=== PATIENT | male | born 1975 | race Caucasian/White ===

== ENCOUNTER 2017-01-10 23:28 | Inpatient (IN) ==
[2017-01-11 01:14] VITALS: BP 144/93
--- NOTE | 2017-01-11 01:34 | Internal Med History&Physical ---
Date of Encounter: 01/11/17 Time of Encounter: 12:50 Internal Medicine - H&P: HPI Chief complaint: Agitation after alcohol and Ambien use x 1 day Admitted From: Intrahospital Transfer Plans for Post Hospital Care: Home History of present illness: Mr. St is a 41 year old male with medical history significant for hypertension, prior ED encounter with alcohol and Ambien use was transferred from [facility] where he was initially managed for agitation after ingestion alcohol and 1 tablet of Ambien. His had called EMS as he had become combative at home. This behavior is not unusual when he drinks. She reports he had drank 2 "tall boys" and down 2 x 10mg pills of Ambien. He was pink-slipped at [facility]. He was transferred to [facility] for unclear reasons. He was restrained in transit. He denies chest pain, SOB, dizziness, palpitation. He denied he fell, he denied unsteady gait. He denies cramps, no diarrhea or vomiting. no new-onset urinary symptoms, no bleeding any orifice, no blurry vision, he denies uicidal or homicidal ideations. He took Ambien because he has insomnia. He is FULL CODE as per discussion. He nominates , Frances St as his NOK/POA ([phone]). ROS: A 10-point ROS was performed, positives and relevant negatives are detailed , system-symptoms not mentioned is assumed negative unless otherwise stated. Vital Signs Temperature 98.5 F 01/10/17 19:35 Pulse Rate 120 01/10/17 19:35 Respiratory Rate 14 01/10/17 19:35 Blood Pressure 161/94 01/10/17 19:35 O2 Sat by Pulse Oximetry 98 01/10/17 19:35 Temperature 98.5 F 01/10/17 19:35 Pulse Rate 104 01/10/17 22:55 Respiratory Rate 14 01/10/17 22:55 Blood Pressure 146/80 01/10/17 22:55 O2 Sat by Pulse Oximetry 96 01/10/17 22:55 O/E: Not in distress, calm. HEENT: Not pale, anicteric, afebrile, acyanotic Chest: CTAB Heart: RRR, HS1.2 no murmur Abdomen: soft, non-tender, no masses. 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 Thought process is logical and goal-directed. Extremities: No pedal edema, normal pedal edema, no calf tenderness. Lab Results 01/10/17 01/10/17 01/10/17 Range/Units 20:00 20:00 20:10 WBC 7.3 (4.3-11.1) K/mcL RBC 5.14 (4.19-5.50) M/mcL Hgb 16.1 (12.9-16.9) g/dL Hct 43.1 (37.5-50.1) % MCV 83.9 (83.0-100.0) fL MCH 31.3 (28.0-33.3) pg MCHC 37.4 H (31.6-35.5) g/dL RDW 11.9 (11.5-14.5) % Plt Count 248 (140-400) K/mcL MPV 9.6 (9.4-12.4) fL Immature Gran % 0.3 (0-4) % Seg Neutrophils % 60.1 % Lymphocytes % 29.9 % Monocytes % 8.5 % Eosinophils % 0.8 % Basophils % 0.4 % Neutrophils # 4.4 (1.6-8.9) K/mcL Lymphocytes # 2.2 (0.6-4.6) K/mcL Monocytes # 0.6 (0.0-1.3) K/mcL Eosinophils # 0.1 (0.0-0.6) K/mcL Basophils # 0.0 (0.0-0.2) K/mcL Sodium (136-145) mEq/L Potassium (3.5-4.5) mEq/L Chloride (98-109) mEq/L Carbon Dioxide (19-29) mEq/L BUN (8-26) mg/dL Creatinine (0.72-1.25) mg/dL Est GFR ( Amer) (> 60) Est GFR (Non-Af Amer) (> 60) BUN/Creatinine Ratio (6-26) Glucose (70-99) mg/dL Calculated Osmolality (280-300) Calcium (8.6-10.8) mg/dL Total Bilirubin (0.2-1.2) mg/dL Direct Bilirubin (0.0-0.5) mg/dL Indirect Bilirubin (0.0-1.2) mg/dL AST (5-34) Units/L ALT (0-55) Units/L Alkaline Phosphatase (38-126) Units/L Troponin I (0-0.03) ng/mL Serum Total Protein (6.0-8.3) g/dL Albumin (3.5-5.0) g/dL Globulin (2.4-3.5) g/dL Albumin/Globulin Ratio (1.1-2.2) Urine Color Yellow (Yellow) Urine Clarity Clear (Clear) Urine pH 7.0 (5.0-8.0) pH Units Ur Specific [place] 1.015 (1.010-1.025) Urine Protein 30 H (Neg-Trace) mg/dL Urine Glucose (UA) 100 H (Normal) mg/dL Urine Ketones Negative (Negative) mg/dL Urine Blood Trace-intact H (Negative) Urine Nitrite Negative (Negative) Urine Bilirubin Negative (Negative) Urine Urobilinogen Normal (Normal) mg/dL Ur Leukocyte Esterase Negative (Negative) Urine Microscopic RBC 0-3 (0-3) per hpf Urine Microscopic WBC 0-3 (0-3) per hpf Ur Squamous Epith Cells Few (None-Few) per lpf Urine Bacteria Few (None-Few) per hpf Hyaline Casts Few (None-Few) per lpf Salicylates (15-30) mg/dL Urine Opiates Screen Negative (Vgnzid=123) ng/mL Ur Oxycodone Screen Negative (Cutoff= 100) ng/mL Acetaminophen (10-30) mcg/mL Ur Barbiturates Screen Negative (Jwthjx=073) ng/mL Ur Phencyclidine Scrn Negative (Cutoff=25) ng/mL Ur Amphetamines Screen Negative (Dmtmbx=4887) ng/mL U Benzodiazepines Scrn Negative (Qclxwe=843) ng/mL Urine Cocaine Screen Negative (Cutoff= 300) ng/mL U Marijuana (THC) Screen Negative (Cutoff = 50) ng/mL Ethyl Alcohol (0-10) mg/dL 01/10/17 01/10/17 Range/Units 20:10 20:11 WBC (4.3-11.1) K/mcL RBC (4.19-5.50) M/mcL Hgb (12.9-16.9) g/dL Hct (37.5-50.1) % MCV (83.0-100.0) fL MCH (28.0-33.3) pg MCHC (31.6-35.5) g/dL RDW (11.5-14.5) % Plt Count (140-400) K/mcL MPV (9.4-12.4) fL Immature Gran % (0-4) % Seg Neutrophils % % Lymphocytes % % Monocytes % % Eosinophils % % Basophils % % Neutrophils # (1.6-8.9) K/mcL Lymphocytes # (0.6-4.6) K/mcL Monocytes # (0.0-1.3) K/mcL Eosinophils # (0.0-0.6) K/mcL Basophils # (0.0-0.2) K/mcL Sodium 138 (136-145) mEq/L Potassium 2.4 L* (3.5-4.5) mEq/L Chloride 98 (98-109) mEq/L Carbon Dioxide 25 (19-29) mEq/L BUN 13 (8-26) mg/dL Creatinine 1.31 H (0.72-1.25) mg/dL Est GFR ( Amer) > 60 (> 60) Est GFR (Non-Af Amer) > 60 (> 60) BUN/Creatinine Ratio 10 (6-26) Glucose 107 H (70-99) mg/dL Calculated Osmolality 287 (280-300) Calcium 10.7 (8.6-10.8) mg/dL Total Bilirubin 0.6 (0.2-1.2) mg/dL Direct Bilirubin 0.2 (0.0-0.5) mg/dL Indirect Bilirubin 0.4 (0.0-1.2) mg/dL AST 20 (5-34) Units/L ALT 32 (0-55) Units/L Alkaline Phosphatase 78 (38-126) Units/L Troponin I 0.00 (0-0.03) ng/mL Serum Total Protein 7.7 (6.0-8.3) g/dL Albumin 4.4 (3.5-5.0) g/dL Globulin 3.3 (2.4-3.5) g/dL Albumin/Globulin Ratio 1.3 (1.1-2.2) Urine Color (Yellow) Urine Clarity (Clear) Urine pH (5.0-8.0) pH Units Ur Specific [place] (1.010-1.025) Urine Protein (Neg-Trace) mg/dL Urine Glucose (UA) (Normal) mg/dL Urine Ketones (Negative) mg/dL Urine Blood (Negative) Urine Nitrite (Negative) Urine Bilirubin (Negative) Urine Urobilinogen (Normal) mg/dL Ur Leukocyte Esterase (Negative) Urine Microscopic RBC (0-3) per hpf Urine Microscopic WBC (0-3) per hpf Ur Squamous Epith Cells (None-Few) per lpf Urine Bacteria (None-Few) per hpf Hyaline Casts (None-Few) per lpf Salicylates < 1.0 L (15-30) mg/dL Urine Opiates Screen (Pgjirw=518) ng/mL Ur Oxycodone Screen (Cutoff= 100) ng/mL Acetaminophen < 1.0 L (10-30) mcg/mL Ur Barbiturates Screen (Jznxrx=560) ng/mL Ur Phencyclidine Scrn (Cutoff=25) ng/mL Ur Amphetamines Screen (Sxealu=5069) ng/mL U Benzodiazepines Scrn (Rxchqu=323) ng/mL Urine Cocaine Screen (Cutoff= 300) ng/mL U Marijuana (THC) Screen (Cutoff = 50) ng/mL Ethyl Alcohol 139 H (0-10) mg/dL EKG: sinus tachycardia. IMP Alcohol intoxication Adverse effect of Ambien Agitation: Resolved Severe hypokalemia, likely related to alcoholism Chronic morbidities HTN Depression. PLAN admit to observation, telemetry IVF N/S Potassium CHLORIDE 60 mEQ q1h x 2 doses Check serum magnesium Accucheck q6h X 24 hours. I discussed my assessment with the patient, he verbalized understanding and is agreeable to admission. He called his who informed him abdelrahman was on her way to the hospital. Past Med Surg Social Fam HX - Past Medical History Medical history: hypertension Psychiatric history: depression - Social History Smoking Status: Current every day smoker Smokeless Tobacco Status: Yes Alcohol use: occasionally Drug use: none - Family History Maternal Grandmother Hx Family Cardiac Disorders: Yes (HTN) Internal Medicine - H&P: Meds Allergies No Known Allergies Allergy (Verified 11/12/16 23:54) All Systems PM: A 10-system review of systems was performed and is negative for pertinent findings except as documented above in the HPI. - Constitutional Vitals: Temp Pulse Resp BP Pulse Ox 98.0 F 111 16 144/93 98 01/11/17 01:13 01/11/17 01:13 01/11/17 01:13 01/11/17 01:13 01/11/17 01:13
[2017-01-11] MEDS ORDERED: Naloxone 0.4 MG/ML INJ IVP PRN (01:46)
[2017-01-11] MEDS ORDERED: Ondansetron 4 MG/2 ML VIAL IVP PRN (01:46)
[2017-01-11] MEDS ORDERED: 0.9 % Sodium Chloride 1,000 ML IVC SCH (02:00)
--- NOTE | 2017-01-11 03:57 | Discharge Summary ---
Date of Encounter: 01/11/17 Time of Encounter: 03:40 - Discharge Diagnosis (1) Alcohol abuse Priority: Primary Status: Acute (2) Intoxication by drug Priority: Primary Status: Acute Qualifiers: Complication of substance-induced condition: uncomplicated Qualified Code(s ): F19.920 - Other psychoactive substance use, unspecified with intoxication, uncomplicated - Discharge Medications Allergies/Adverse Reactions: Allergies No Known Allergies Allergy (Verified 11/12/16 23:54) Date of admission: 01/11/17 00:52 Primary care physician: PCP NO Consults: 01/11/17 01:46 Consult to Risk Control Manager [CONS] Routine Reason for SW Consult: Patient admitted from home with and kids after alcohol intoxication/suspected overdose. Denies suicidal ideation at this time, but is responsible for others. Unemployed at this time, may have financial obligations to fulfill. Patient is poor historian; does not recall events leading to admission and transfer to [facility]. Discharging clinician: Sergio Piedra Anticipated date of discharge: 01/11/17 - Patient Status Disposition: Home, Self-Care Condition: Good Functional capacity at discharge: independent ambulation Overall status at discharge: patient is back to baseline - Discharge Instructions Follow Up With: DOMINGO,PCP [Primary Care Provider] - Interval History: He decides he wants to go home. arrives from home. Hospital course: Mr. St is a 41 year old male admitted with agitation due to alcohol intoxication and Ambien intake. He was initially managed at [facility]. He was sober at the time I saw him. He denies to leave AMA hIS WAS PRESENT, SHE APPEARS TO CONCUR. He recieved 60mEQ po x 1, as well as 30 mEQ IV at [facility]. No final examination was performed. Time spent discussing smoking cessation with patient: 3 to 10 minutes - Time Spent with Patient Total time spent providing and/or coordinating discharge services: Less than 30 minutes - Constitutional Vitals: Temp Pulse Resp BP Pulse Ox 98.0 F 109 16 144/93 98 01/11/17 01:13 01/11/17 01:18 01/11/17 01:13 01/11/17 01:13 01/11/17 01:13 - VTE Reasons for not Prescribing Prophylaxis: Treatment not Indicated - Low risk for VTE
== END 2017-01-11 03:03 | disposition left against medical advice (07) | DRG 894 ==
LOC: 2NNU
PROVIDERS: ADMIT Internal Medicine; ATTEND Internal Medicine

== ENCOUNTER 2017-01-26 13:17 | Observation (INO) ==
[2017-01-26] MEDS ORDERED: Bupivacaine/EPI 1:200k 0.25%PF 10 ML VIAL INFILT ONE ×2 (13:26→16:23)
[2017-01-26] MEDS ORDERED: *HR* FentaNYL (PF) 100 MCG/2 ML VIAL ONE (13:32)
[2017-01-26] MEDS ORDERED: *HR* Midazolam HCl 2 MG/2 ML VIAL ONE (13:33)
[2017-01-26] MEDS ORDERED: *HR* Propofol 200 MG/20 ML VIAL IVP ONE (13:33)
[2017-01-26] MEDS ORDERED: Lidocaine -MPF 2% 2 ML VIAL ONE (13:34)
[2017-01-26] MEDS ORDERED: Ketamine *HR* 500 MG/10 ML MDV ONE (13:38)
[2017-01-26] MEDS ORDERED: Albuterol 2.5 MG/3 ML NEBULIZER ONE (13:48)
--- NOTE | 2017-01-26 13:52 | Anesthesia Evaluation PreOp ---
Date of Encounter: 01/26/17 Time of Encounter: 13:50 - Past History Planned Operation: r radial head replacement Cardiac History: Denies any Significant Hx, HTN Pulmonary History: Smoker (1ppd), ANA Dx REGULATORY COMPLIANCE ENGINEER History: Denies Any Significant HX Other Medical History: Denies Any Significant HX Anesthesia History: No Prior Anesthetic Complications, Past Anesthesia (appelvin, r knee arth) Alcohol Use: occasionally (says he stopped in jul 2016) Drug use: none Medications and Allergies No Known Home Drugs 01/26/17 [History] Allergies No Known Allergies Allergy (Verified 01/26/17 13:40) - Meds/Allergy Pre-op Review Medications Reviewed: Yes Allergies Reviewed: Yes Beta Blockers on Current Med List: No Anesthesia Results - Labs Laboratory Tests 01/10/17 01/10/17 20:10 20:10 Hgb 16.1 Hct 43.1 Plt Count 248 Sodium 138 Potassium 2.4 L* Creatinine 1.31 H Anesthesia Exam O2 Sat Height 1.7 m Weight 87.09 kg Height: 1.7 Weight: 87 NPO (# of Hours): >8 - HEENT Pupil (Motor): Pupils equal, EOMI Mallampati: II Teeth: Normal Oral Opening: Greater than 3 - REGULATORY COMPLIANCE ENGINEER LOC: Oriented REGULATORY COMPLIANCE ENGINEER Motor: Normal RUE, Normal LUE, Normal RLE, Normal LLE, Normal Face REGULATORY COMPLIANCE ENGINEER Sensory: Normal: RUE, LUE, RLE, LLE, Face - Cardiac Rhythm: Regular Murmur: None - Pulmonary Breath Sounds: bilateral Clear Respiratory Effort: Symmetrical Anesthesia Assess/Plan ASA Score: 2 Modified [place] Scale for Level of Consciousness: Cooperative, oriented, and tranquil Anesthetic Plan: General Monitoring Plan: Standard Monitors Recovery Plan: PACU
[2017-01-26] MEDS ORDERED: Ringers Solution, Lactated 1,000 ML IVC SCH (14:00)
[2017-01-26] MEDS ORDERED: CeFAZolin Pre 2,000 MG/100 ML 2,000 MG/100 ML BAG IVPB ONE (14:12)
[2017-01-26] MEDS ORDERED: Lidocaine 1% 20 ML MDV ID ONE (14:12)
[2017-01-26] MEDS ORDERED: Albuterol 2.5 MG/3 ML NEBULIZER IH ONE (14:12)
--- NOTE | 2017-01-26 14:14 | History & Physical Report ---
Date of Encounter: 01/26/17 Time of Encounter: 14:13 24 Hour HP Update - Instructions Instructions: If the History and Physical is less than 30 days old and was completed prior to A.M. admission and or procedure and has NOT been updated on calendar day of procedure please complete this update prior to performing procedure. - Update Patient reports changes in Medical Condition: No Changes in assessment/condition: No Changes in Medication: No Preop tests/diagnostics Reviewed: Yes Surgery Remains Indicated: Yes Consent for Planned Operative Procedure(s) Verified: Yes
[2017-01-26] MEDS ORDERED: Lidocaine -MPF 4% 5 ML AMPUL ONE (14:26)
[2017-01-26] MEDS ORDERED: *HR* Succinylcholine 200 MG/10 ML VIAL IVP ONE (14:26)
[2017-01-26] MEDS ORDERED: Ondansetron 4 MG/2 ML VIAL ONE (14:42)
[2017-01-26] MEDS ORDERED: Dexamethasone 4 MG/ML VIAL ONE (14:42)
[2017-01-26] MEDS ORDERED: *HR* HYDROmorphone 2 MG/ML SYRINGE ONE (14:46)
[2017-01-26] MEDS ORDERED: *HR* Promethazine 25 MG/ML VIAL IVP PRN (15:06)
--- NOTE | 2017-01-26 16:34 | Discharge Summary ---
Outpatient Proc Discharge Plan - Plan Additional Instructions: DISCHARGE INSTRUCTIONS Dr. Francis DISCHARGE DIAGNOSIS/PROCEDURE Right radial head replacement PAIN AND SWELLING: The goal of pain medication is to reduce your pain and make you more comfortable. Pain medication may not completely relieve all discomfort. Control of swelling is an important part of pain control. To control swelling and pain: 1. Use a pillow to elevate the hand 10 to 14 inches above the heart level. 2. If your splint is positioned so that one or more of your fingers is free, then we encourage gentle movement of those fingers. If the splint blocks your motion, then we ask that you avoid motion of these fingers or hand. If the splint does not include the elbow, then we encourage you to bend and straighten your elbow 4 to 5 times per day to prevent stiffness. 3. Use ice packs over the affected area (on the soft side of the dressings is preferred - if there is one) for 10 minute intervals every hour while the hand is elevated. Be careful, however, to keep the dressing dry! 4. If you were given a sling, then wear the sling on when walking around for long periods of time. Otherwise, elevated as directed above. Continued use of the sling does not provide proper elevation of the extremity to prevent swelling. 5. The anesthesiologist may have given you a nerve block (an injection near your neck or shoulder) to numb your hand and arm. This is to help control your pain. Therefore, it is normal to experience some numbness and tingling in your arm and fingers up to approximately 18 hours after surgery. Your surgeon may have given a nerve block directly at the site of surgery which may also cause some numbness and tingling to the affected area. ACTIVITY: No aggressive activities with right upper extremity. No pushing, pulling, lifting with the right upper extremity. WOUND CARE: Keep the wound clean, dry, and covered. The purpose of the dressing is to keep the surgical site protected and to promote healing. If you have a splint or a cast, it is designed to also help protect the surgical site. You may take a shower or bath with your dressing, splint, or cast in place, but you must keep it dry. One common way to do this is to place a bag over the area and seal with tape. If your dressing, splint, or cast becomes soaked, then phone our office as soon as possible. Unless otherwise instructed, do not remove your dressing or splint. There may be some bloody spotting on the dressing initially , and this is normal. Excessive bleeding that soaks the dressing must be reported to us. DRIVING: Do not drive while taking narcotic pain medications. DIET: Begin with clear liquids, and then increase your diet as you feel comfortable. MEDICATIONS: Pain: Percocet Your prescribed pain medication contains Tylenol. You must be careful not to exceed 4,000 mg (4 g) of Tylenol (or generic equivalent), from all sources, within a single 24-hour period. Gradually wean to Tylenol (or generic equivalent) for pain. Over the counter ibuprofen can be taken as directed in addition to your prescribed pain medication unless otherwise stated by your doctor. DO NOT TAKE IBUPROFEN IF YOU HAVE A HISTORY OF STOMACH ULCERS OR ARE TAKING BLOOD THINNERS LIKE COUMADIN OR PLAVIX. FOLLOW-UP Follow-up with Dr. Francis at the office 1 week from the surgery date for a post operative evaluation. Call the office at [phone] to schedule or confirm your appointment. WHEN TO CALL THE DOCTOR OR WHEN TO SEEK CARE BEFORE YOUR APPOINTMENT 1. Excess swelling or increased numbness not made better by elevating the hand and moving the fingers. 2. Uncontrolled pain. 3. A color change in your hand or fingers. 4. Worsening redness or drainage. 5. Fevers over 100.5 degrees F or 38.1 degrees C. 6. Any symptoms that bring concern to you. Prescriptions: OxyCODONE/APAP 5/325 [Percocet 5/325 MG] 1 each PO Q6HR PRN #50 tablet PRN Reason: Pain Home Medications: OxyCODONE/APAP 5/325 [Percocet 5/325 MG] 1 each PO Q6HR PRN #50 tablet 01/26/17 [Rx]
[2017-01-26] MEDS: *HR* HYDROmorphone (PF) 1 MG/ML SYRINGE IVP PRN ×2 (16:49→17:01)
[2017-01-26] MEDS ORDERED: Acetaminophen IV 1,000 MG/100 ML INFUS..BTL IVPB ONE (17:17)
--- NOTE | 2017-01-26 17:20 | Orthopedic Operative Note ---
Date of procedure: 01/26/17 Procedure: OPERATIVE REPORT DATE OF PROCEDURE: 01/26/2017 SURGEON: Grady Francis MD LABOR LAW PROFESSOR(S): There were no assistants PREOPERATIVE DIAGNOSIS: Comminuted right radial head fracture POSTOPERATIVE DIAGNOSIS: Comminuted right radial head fracture PROCEDURE: Right radial head arthroplasty ANESTHESIA: Gen. anesthesia PREOPERATIVE ANTIBIOTICS: 2 grams of Ancef ESTIMATED BLOOD LOSS: 5 milliliters TOURNIQUET TIME: 97 minutes at 250 mmHg SPECIMENS: There were no specimens IMPLANTS: Acumed Slide-Loc size 24mm head, +1 neck, 9 mm stem LOCAL INJECTION: 0.25% bupivicaine with epinephrine PREOPERATIVE NOTE AND INDICATIONS: Johan is a 41-year-old male sustained a right elbow injury resulting in a displaced and comminuted radial head fracture. He was seen in the office with a diagnosis was made. Treatment options were discussed including reduction and fixation, radial head excision, and radial head replacement. Each of the options were discussed thoroughly and the decision was to proceed with operative treatment but perform the final assessment and treatment decision intraoperatively. The goal of the procedure was to provide length and stability to the radiocapitellar joint. The surgical plan was discussed with the patient. The risks, benefits, alternatives, and potential complications of this procedure were discussed with the patient including injury to veins, arteries, nerves, tendons, ligaments, and bone. Also discussed were the risks of infection, bleeding, pain, blood clots, the possible need for a blood transfusion, the possible need for further procedures, heart attack, stroke, and . All of this was explained in simple terms, and the patient verbalized understanding and wished to proceed. Consent was given to proceed with surgery. PROCEDURE: The patient was seen in the preoperative holding area where the identify and the consent were confirmed. The right elbow was marked. Final questions were answered. The patient was brought back to the operating room and placed supine on the operating room table. A huddle was performed with the patient and all vital surgical team members confirming patient identity, the correct procedure, and the correct operative site. General anesthesia was administered. The right upper extremity was prepped and draped in the usual sterile fashion. A surgical time out was performed immediately preceding the incision with all personnel in the operating room to confirm patient identity, the correct operative site and extremity, correct radiographic studies, availability of appropriate surgical equipment, and agreement on the planned procedure. The limb was exsanguinated and the tourniquet inflated to 250 mmHg. A curvilinear incision was made laterally. Dissection proceeded through the subcutaneous tissue creating full-thickness flaps. The supracondylar ridge was identified and exposed. The capsule was elevated off the anterior humerus and opened. Dissection proceeded down along the lateral supracondylar ridge to expose the capitellum and at that point the common extensor fascia was incised at the midportion of the capitellum. Hemarthrosis was irrigated. The radial head was exposed after incising the annular ligament. There were 3 fragments total. 2 of them were small free floating. The larger fragment was in place but had a fracture line going through it. The decision was made to perform radial head arthroplasty given the amount of comminution. Using a sagittal saw the remaining fragment was removed and the elbow joint was thoroughly irrigated. On the back table, they were reassembled and measured 24 mm. Once all fragments were felt to be removed the calcar was planed. The canal was then reamed to 9 mm and at that point there was good chatter. The +1 neck sizer fit nicely. The trial components were placed and x-ray showed good position. The trial components were removed and the elbow joint was copiously irrigated. The definitive stem was implanted leaving the handle in place. The +1 neck was impacted onto the definitive 24 mm head. This was then slid over the stem and locked into place. X-rays confirmed good position. The wound was copiously irrigated and the deep layer closed with a series of 3-0 FiberWire and 0 Vicryl stitches. The superficial layer was irrigated and the skin closed with interrupted 3-0 Vicryl stitches and celestina. The tourniquet was deflated and the local was given. A sterile dressing posterior slab splint were placed. The instrument, sponge, and needle counts were correct after wound closure. POST OPERATIVE PLAN: Weight Bearing: Nonweightbearing to the right upper extremity DVT Prophylaxis: Ambulation Activity: No aggressive activities with the right upper extremity Wound Care: Keep the dressing clean, dry, and intact Pain Control: Percocet Follow Up: One week
[2017-01-26] MEDS ORDERED: Acetaminophen IV 1,000 MG/100 ML INFUS..BTL ONE (17:21)
[2017-01-26] MEDS ORDERED: *HR* OxyCODONE/APAP 5/325 TABLET PO ONE (17:47)
[2017-01-26] MEDS ORDERED: Naloxone 0.4 MG/ML INJ IVP PRN (18:36)
[2017-01-26] MEDS ORDERED: Ondansetron 4 MG/2 ML VIAL IVP PRN (18:36)
--- NOTE | 2017-01-26 18:49 | Anesthesia Evaluation Post Op ---
Date of Encounter: 01/26/17 Time of Encounter: 18:49 - Vital Signs Vital Signs: Vital Signs/O2 Sat/Glucose, Most Current Temp Pulse Resp BP Pulse Ox 01/26/17 18:40 98 16 138/90 95 01/26/17 18:10 95 16 146/85 96 01/26/17 17:40 97.5 F L 102 16 158/96 98 01/26/17 17:27 97.9 F 80 16 153/99 94 L 01/26/17 17:17 72 18 157/98 94 L 01/26/17 17:07 97.9 F 96 16 158/113 94 L 01/26/17 16:57 94 16 152/108 97 01/26/17 16:47 99 16 159/97 94 L 01/26/17 16:37 98.2 F 98 16 154/86 95 - Lungs Lungs: Clear Ascult./Percussion - Airway Airway: Non-obstructed - Cardiovascular Regular Rate - Mental Status Mental Status: Alert & Oriented, Answers Appropriately - Pain Pain Scale: 2 - Nausea Vomiting Nausea Vomiting: Not Present - Hydration Hydration: Tolerates oral liquids - Discharge PostOp Status: Discharge Patient to home
[2017-01-26] MEDS: ceFAZolin 2,000 MG in D5% in Water 100 ML IVPB SCH (23:03)
[2017-01-27] MEDS: *HR* OxyCODONE/APAP 5/325 TABLET PO PRN ×2 (00:23→06:47)
[2017-01-27 06:42] VITALS: BP 135/72
--- NOTE | 2017-01-27 08:44 | Orthopedics Progress Note ---
Date of Encounter: 01/27/17 Time of Encounter: 08:41 Subjective Interval history: S: Resting in bed. Pain controlled overnight. O: Afeb, VSS Right elbow in posterior long arm splint. Hand distal to splint is mildly puffy. He can flex, and extend the digits, extend the thumb, spread the fingers, and make an OK sign. Fingertips are all sensate and well perfused. A: Post right radial head replacement P: Discharge today. Follow up in 1 week to begin motion exercises. Objective Vital signs: Vital Signs Temp Pulse Resp BP Pulse Ox 01/27/17 06:36 97.9 F 78 14 135/72 95 01/27/17 03:52 98.6 F 72 15 134/79 98 01/26/17 23:12 98.2 F 92 18 151/93 97 01/26/17 22:00 98.4 F 88 19 133/79 96 01/26/17 21:23 98.1 F 77 14 138/91 95 01/26/17 20:34 98.8 F 91 17 142/83 97 01/26/17 20:23 97.7 F 81 12 129/83 95 01/26/17 20:08 97.8 F 83 14 137/81 95 01/26/17 18:40 98 16 138/90 95 01/26/17 18:10 95 16 146/85 96 01/26/17 17:40 97.5 F L 102 16 158/96 98 01/26/17 17:27 97.9 F 80 16 153/99 94 L 01/26/17 17:17 72 18 157/98 94 L 01/26/17 17:07 97.9 F 96 16 158/113 94 L 01/26/17 16:57 94 16 152/108 97 01/26/17 16:47 99 16 159/97 94 L 01/26/17 16:37 98.2 F 98 16 154/86 95 01/26/17 14:04 97.7 F 77 18 156/101 98 Intake and Output 01/26/17 01/27/17 01/27/17 23:59 07:59 15:59 Intake Total 1200 / 1200 Output Total 5 / 5 Balance 1195 / 1195 Intake: IV Fluids 1200 / 1200 Lactated Ringers 1,000 ML 1000 / 1000 @ 20 mls/hr IVC .Q24H [facility] Rx#:[id number] Ofirmev 1,000 mg In 100 100 / 100 ml @ 400 mls/hr IVPB ONCE ONE Rx#:[id number] Ancef 2,000 MG In 100 / 100 Dextrose 5% 100 ML @ 200 mls/hr IVPB Q8HR [facility] Rx#: [id number] Output: Estimated Blood Loss 5 / 5 Other: # Voids 1 1 - VTE Documentation of Mechanical Device: Intermittent pneumatic compression device Consult Discharge Plan - Plan Instructions: Open Reduction and Internal Fixation of a Wrist Fracture (DC) Additional Instructions: DISCHARGE INSTRUCTIONS Dr. Francis DISCHARGE DIAGNOSIS/PROCEDURE Right radial head replacement PAIN AND SWELLING: The goal of pain medication is to reduce your pain and make you more comfortable. Pain medication may not completely relieve all discomfort. Control of swelling is an important part of pain control. To control swelling and pain: 1. Use a pillow to elevate the hand 10 to 14 inches above the heart level. 2. If your splint is positioned so that one or more of your fingers is free, then we encourage gentle movement of those fingers. If the splint blocks your motion, then we ask that you avoid motion of these fingers or hand. If the splint does not include the elbow, then we encourage you to bend and straighten your elbow 4 to 5 times per day to prevent stiffness. 3. Use ice packs over the affected area (on the soft side of the dressings is preferred - if there is one) for 10 minute intervals every hour while the hand is elevated. Be careful, however, to keep the dressing dry! 4. If you were given a sling, then wear the sling on when walking around for long periods of time. Otherwise, elevated as directed above. Continued use of the sling does not provide proper elevation of the extremity to prevent swelling. 5. The anesthesiologist may have given you a nerve block (an injection near your neck or shoulder) to numb your hand and arm. This is to help control your pain. Therefore, it is normal to experience some numbness and tingling in your arm and fingers up to approximately 18 hours after surgery. Your surgeon may have given a nerve block directly at the site of surgery which may also cause some numbness and tingling to the affected area. ACTIVITY: No aggressive activities with right upper extremity. No pushing, pulling, lifting with the right upper extremity. WOUND CARE: Keep the wound clean, dry, and covered. The purpose of the dressing is to keep the surgical site protected and to promote healing. If you have a splint or a cast, it is designed to also help protect the surgical site. You may take a shower or bath with your dressing, splint, or cast in place, but you must keep it dry. One common way to do this is to place a bag over the area and seal with tape. If your dressing, splint, or cast becomes soaked, then phone our office as soon as possible. Unless otherwise instructed, do not remove your dressing or splint. There may be some bloody spotting on the dressing initially , and this is normal. Excessive bleeding that soaks the dressing must be reported to us. DRIVING: Do not drive while taking narcotic pain medications. DIET: Begin with clear liquids, and then increase your diet as you feel comfortable. MEDICATIONS: Pain: Percocet Your prescribed pain medication contains Tylenol. You must be careful not to exceed 4,000 mg (4 g) of Tylenol (or generic equivalent), from all sources, within a single 24-hour period. Gradually wean to Tylenol (or generic equivalent) for pain. Over the counter ibuprofen can be taken as directed in addition to your prescribed pain medication unless otherwise stated by your doctor. DO NOT TAKE IBUPROFEN IF YOU HAVE A HISTORY OF STOMACH ULCERS OR ARE TAKING BLOOD THINNERS LIKE COUMADIN OR PLAVIX. FOLLOW-UP Follow-up with Dr. Francis at the office 1 week from the surgery date for a post operative evaluation. Call the office at [phone] to schedule or confirm your appointment. WHEN TO CALL THE DOCTOR OR WHEN TO SEEK CARE BEFORE YOUR APPOINTMENT 1. Excess swelling or increased numbness not made better by elevating the hand and moving the fingers. 2. Uncontrolled pain. 3. A color change in your hand or fingers. 4. Worsening redness or drainage. 5. Fevers over 100.5 degrees F or 38.1 degrees C. 6. Any symptoms that bring concern to you. Referrals: NO,PCP [Primary Care Provider] - Grady Francis MD [Partnered Physician] - 02/03/17 9:00 am
[2017-01-27] MEDS: ceFAZolin 2,000 MG in D5% in Water 100 ML IVPB SCH (09:48)
== END 2017-01-27 11:15 | disposition home or self-care (01) ==
LOC: SAMDAY 13:17 → 3NENU 13:17
PROVIDERS: ADMIT Orthopaedic Surgery Hand Surgery; ATTEND Orthopaedic Surgery Hand Surgery

== ENCOUNTER 2018-03-13 21:10 | Observation (INO) ==
[2018-03-13] MEDS ORDERED: 0.9 % Sodium Chloride 1,000 ML IVC ONE (22:03)
[2018-03-13] MEDS ORDERED: Thiamine (B-1) 100 MG in D5% in Water 50 ML IVPB ONE (22:03)
[2018-03-13] MEDS ORDERED: *HR* LORazepam 2 MG/ML VIAL IVP ONE ×2 (22:03→23:54)
--- NOTE | 2018-03-13 22:12 | Emergency Department Note ---
Disposition Clinical Impression: Alcohol withdrawal Qualifiers: Complication of substance-induced condition: with perceptual disturbance Qualified Code(s): F10.232 - Alcohol dependence with withdrawal with perceptual disturbance Alcoholic intoxication Qualifiers: Complication of substance-induced condition: with unspecified complication Qualified Code(s): F10.929 - Alcohol use, unspecified with intoxication, unspecified Disposition: Admitted As Inpatient Condition: Fair Referrals: NONE,PCP [Primary Care Provider] - Forms: ED Satisfaction Letter Alcohol HPI - General Chief Complaint: ED Alcohol Abuse Stated Complaint: ETOH abuse Time Seen by Provider: 03/13/18 21:34 Source: patient, other Limitations: other Nursing Notes Reviewed: Yes Vital Signs Reviewed: Yes - History of Present Illness HPI Narrative: Patient is a 43-year-old male with past medical history of alcohol abuse that presents for alcohol intoxication. Patient said that he lost his job last Thursday and started drinking three 3 packs of [employer] each day for the past week. His last drink was this morning. Patient admits to numbness/tingling /burning sensation in both his hands and arms. He denies any auditory or visual hallucinations. He admits to tremors last night but was able to subdue it with taking in more alcohol. He denies any suicidal ideations right now. He denies any seizure-like activities. Patient admits to extreme agitation, nausea , vomiting, and dry heaving. Patient has been a drinker since his late teens to early 20s. Unsure of having a fall, but he denies any loss of consciousness or any trauma to his head. Denies any history of seizures from withdrawls. - Related Data Previous Rx's Medication Instructions Recorded OxyCODONE/APAP 5/325 [Percocet 1 each PO Q6HR PRN #50 tablet 01/26/17 5/325 MG] Allergies Allergy/AdvReac Type Severity Reaction Status Date / Time No Known Allergies Allergy Verified 01/26/17 13:40 Review of Systems: As Per HPI Constitutional: Denies: fever, chills, weakness, weight change Cardiovascular: Denies: chest pain, palpitations, dyspnea on exertion, edema, syncope Respiratory: Denies: cough, dyspnea, wheezes, hemoptysis, stridor Gastrointestinal: Reports: nausea, vomiting. Denies: abdominal pain, diarrhea, constipation Past Medical History - Past Medical History Medical history: Reports: hypertension Surgical history: Reports: appendectomy, other Psychiatric history: Reports: depression - Social History Smoking Status: Current every day smoker Smokeless Tobacco Status: No Alcohol use: Reports: occasionally Drug use: Reports: none Physical Exam - General Limitations: other General appearance: alert Course Course Narrative: Patient's has a CIWA score of 22. He is currently not displaying any tremors, auditory or visual hallucinations, focal deficits, or seizure-like activities. His alcohol level is 238. Magnesium level was normal. Electrolyte levels within normal limits. Lipase level was within normal limits. Liver enzymes were not significantly elevated. Patient was started on CIWA protocol. Spoke to hospitalist Dr. Quiros who agreed to admit patient. Vital Signs Temperature 98.2 F 03/13/18 21:47 Pulse Rate 106 03/13/18 21:47 Respiratory Rate 16 03/13/18 21:47 Blood Pressure 136/85 03/13/18 21:47 O2 Sat by Pulse Oximetry 100 03/13/18 21:47 Temperature 98.2 F 03/13/18 21:47 Pulse Rate 110 03/13/18 23:00 Respiratory Rate 18 03/13/18 23:00 Blood Pressure 171/114 03/13/18 23:00 O2 Sat by Pulse Oximetry 98 03/13/18 23:00 Oxygen Delivery Oxygen Delivery Room Air Alcohol - Lab Data Result diagrams: 03/13/18 22:14 03/13/18 22:14 Lab Results 03/13/18 03/13/18 Range/Units 22:14 22:14 WBC 12.8 H (4.3-11.1) K/mcL RBC 5.18 (4.19-5.50) M/mcL Hgb 16.9 (12.9-16.9) g/dL Hct 48.3 (37.5-50.1) % MCV 93.2 (83.0-100.0) fL MCH 32.6 (28.0-33.3) pg MCHC 35.0 (31.6-35.5) g/dL RDW 12.7 (11.5-14.5) % Plt Count 286 (140-400) K/mcL MPV 9.1 L (9.4-12.4) fL Immature Gran % 0.6 (0-4) % Seg Neutrophils % 82.3 % Lymphocytes % 13.3 % Monocytes % 3.1 % Eosinophils % 0.2 % Basophils % 0.5 % Neutrophils # 10.6 H (1.6-8.9) K/mcL Lymphocytes # 1.7 (0.6-4.6) K/mcL Monocytes # 0.4 (0.0-1.3) K/mcL Eosinophils # 0.0 (0.0-0.6) K/mcL Basophils # 0.1 (0.0-0.2) K/mcL Sodium 136 (136-145) mEq/L Potassium 4.8 (3.5-5.1) mEq/L Chloride 94 L (98-107) mEq/L Carbon Dioxide 17 L (23-29) mEq/L BUN 17 (6-20) mg/dL Creatinine 1.22 (0.70-1.30) mg/dL Est GFR ( Amer) > 60 (> 60) Est GFR (Non-Af Amer) > 60 (> 60) BUN/Creatinine Ratio 14 (6-26) Glucose 79 (70-105) mg/dL Calculated Osmolality 282 (280-300) Calcium 9.5 (8.6-10.3) mg/dL Magnesium 2.2 (1.6-2.6) mg/dL Total Bilirubin 0.9 (0.3-1.0) mg/dL Direct Bilirubin 0.2 (0.0-0.2) mg/dL Indirect Bilirubin 0.7 (0.0-1.2) mg/dL AST 41 H (13-39) Units/L ALT 47 (7-52) Units/L Alkaline Phosphatase 86 (34-104) Units/L Serum Total Protein 7.9 (6.4-8.9) g/dL Albumin 5.0 (3.5-5.7) g/dL Globulin 2.9 (2.4-3.5) g/dL Albumin/Globulin Ratio 1.7 (1.1-2.2) Lipase 38 (11-82) Units/L Ethyl Alcohol 283 H (Less than 10) mg/dL Attestation Statement - Attestation Attestation: I examined this patient and my medical decision-making was reviewed with the Resident Physician. I agree with the documented findings, disposition and treatment plan as described except to the extent set forth below.
[2018-03-13 22:29] LABS: Basophils # 0.1 K/mcL (0.0-0.2); Basophils % 0.5 %; Eosinophils % 0.2 %; Hematocrit 48.3 % (37.5-50.1); Hemoglobin 16.9 g/dL (12.9-16.9); Immature Granulocytes % 0.6 % (0-4); Lymphocytes # 1.7 K/mcL (0.6-4.6); Lymphocytes % 13.3 %; Mean Corpuscular Hemoglobin 32.6 pg (28.0-33.3); Mean Corpuscular Volume 93.2 fL (83.0-100.0); Mean Platelet Volume 9.1 fL (9.4-12.4); Monocytes # 0.4 K/mcL (0.0-1.3); Monocytes % 3.1 %; Neutrophils # 10.6 K/mcL (1.6-8.9); Platelet Count 286 K/mcL (140-400); Red Blood Count 5.18 M/mcL (4.19-5.50); Red Cell Distribution Width 12.7 % (11.5-14.5); Segmented Neutrophils % 82.3 %
[2018-03-13] MEDS ORDERED: Ondansetron 4 MG/2 ML VIAL IVP ONE (22:30)
[2018-03-13] MEDS ORDERED: Famotidine 20 MG/2 ML VIAL IVP ONE (22:30)
[2018-03-13 22:50] LABS: Alanine Aminotransferase 47 Units/L (7-52); Albumin/Globulin Ratio 1.7 (1.1-2.2); Alkaline Phosphatase 86 Units/L (34-104); Aspartate Amino Transferase 41 Units/L (13-39); BUN/Creatinine Ratio 14 (6-26); Bilirubin,Direct 0.2 mg/dL (0.0-0.2); Bilirubin,Indirect 0.7 mg/dL (0.0-1.2); Bilirubin,Total 0.9 mg/dL (0.3-1.0); Blood Urea Nitrogen 17 mg/dL (6-20); Calcium 9.5 mg/dL (8.6-10.3); Carbon Dioxide 17 mEq/L (23-29); Chloride 94 mEq/L (98-107); Ethanol 283 mg/dL (Less than 10); Globulin 2.9 g/dL (2.4-3.5); Glucose 79 mg/dL (70-105); Lipase 38 Units/L (11-82); Magnesium 2.2 mg/dL (1.6-2.6); Osmolality,Calculated 282 (280-300); Potassium 4.8 mEq/L (3.5-5.1); Sodium 136 mEq/L (136-145); Total Protein 7.9 g/dL (6.4-8.9); eGFR For African Americans > 60 (> 60); eGFR For Non-African Americans > 60 (> 60)
[2018-03-13] MEDS ORDERED: *HR* LORazepam 2 MG/ML VIAL IVP PRN (23:00)
--- NOTE | 2018-03-13 23:04 | Emergency Department Note ---
Disposition Clinical Impression: Alcohol withdrawal Qualifiers: Complication of substance-induced condition: with perceptual disturbance Qualified Code(s): F10.232 - Alcohol dependence with withdrawal with perceptual disturbance Alcoholic intoxication Qualifiers: Complication of substance-induced condition: with unspecified complication Qualified Code(s): F10.929 - Alcohol use, unspecified with intoxication, unspecified Disposition: Admitted As Inpatient Condition: Fair General Adult HPI - General Chief complaint: ED Alcohol Abuse Stated complaint: ETOH abuse Time Seen by Provider: 03/13/18 21:34 Source: patient, other Limitations: other - History of Present Illness Pain Scale: 0 - Related Data Home Medications Medication Instructions Recorded Confirmed No Known Home Drugs 03/14/18 03/14/18 Allergies Allergy/AdvReac Type Severity Reaction Status Date / Time No Known Allergies Allergy Verified 01/26/17 13:40 Constitutional: Denies: fever, chills, weakness, weight change Cardiovascular: Denies: chest pain, palpitations, dyspnea on exertion, edema, syncope Respiratory: Denies: cough, dyspnea, wheezes, hemoptysis, stridor Gastrointestinal: Reports: nausea, vomiting. Denies: abdominal pain, diarrhea, constipation Past Medical History - Past Medical History Medical history: Reports: hypertension Surgical history: Reports: appendectomy, other Psychiatric history: Reports: depression - Social History Smoking Status: Current every day smoker Smokeless Tobacco Status: No Alcohol use: Reports: occasionally Drug use: Reports: none Physical Exam - General Limitations: other General appearance: alert Course Vital Signs Temperature 98.2 F 03/13/18 21:47 Pulse Rate 106 03/13/18 21:47 Respiratory Rate 16 03/13/18 21:47 Blood Pressure 136/85 03/13/18 21:47 O2 Sat by Pulse Oximetry 100 03/13/18 21:47 Temperature 97.8 F 03/14/18 11:13 Pulse Rate 93 03/14/18 11:13 Respiratory Rate 16 03/14/18 11:13 Blood Pressure 172/103 03/14/18 11:13 O2 Sat by Pulse Oximetry 94 03/14/18 11:13 Oxygen Delivery Oxygen Delivery Room Air Medical Decision Making - Lab Data Result diagrams: 03/14/18 06:02 03/14/18 06:02 Lab Results 03/13/18 03/13/18 03/13/18 Range/Units 21:58 22:14 22:14 WBC 12.8 H (4.3-11.1) K/mcL RBC 5.18 (4.19-5.50) M/mcL Hgb 16.9 (12.9-16.9) g/dL Hct 48.3 (37.5-50.1) % MCV 93.2 (83.0-100.0) fL MCH 32.6 (28.0-33.3) pg MCHC 35.0 (31.6-35.5) g/dL RDW 12.7 (11.5-14.5) % Plt Count 286 (140-400) K/mcL MPV 9.1 L (9.4-12.4) fL Immature Gran % 0.6 (0-4) % Seg Neutrophils % 82.3 % Lymphocytes % 13.3 % Monocytes % 3.1 % Eosinophils % 0.2 % Basophils % 0.5 % Neutrophils # 10.6 H (1.6-8.9) K/mcL Lymphocytes # 1.7 (0.6-4.6) K/mcL Monocytes # 0.4 (0.0-1.3) K/mcL Eosinophils # 0.0 (0.0-0.6) K/mcL Basophils # 0.1 (0.0-0.2) K/mcL Sodium 136 (136-145) mEq/L Potassium 4.8 (3.5-5.1) mEq/L Chloride 94 L (98-107) mEq/L Carbon Dioxide 17 L (23-29) mEq/L BUN 17 (6-20) mg/dL Creatinine 1.22 (0.70-1.30) mg/dL Est GFR ( Amer) > 60 (> 60) Est GFR (Non-Af Amer) > 60 (> 60) BUN/Creatinine Ratio 14 (6-26) Glucose 79 (70-105) mg/dL Calculated Osmolality 282 (280-300) Calcium 9.5 (8.6-10.3) mg/dL Magnesium 2.2 (1.6-2.6) mg/dL Total Bilirubin 0.9 (0.3-1.0) mg/dL Direct Bilirubin 0.2 (0.0-0.2) mg/dL Indirect Bilirubin 0.7 (0.0-1.2) mg/dL AST 41 H (13-39) Units/L ALT 47 (7-52) Units/L Alkaline Phosphatase 86 (34-104) Units/L Serum Total Protein 7.9 (6.4-8.9) g/dL Albumin 5.0 (3.5-5.7) g/dL Globulin 2.9 (2.4-3.5) g/dL Albumin/Globulin Ratio 1.7 (1.1-2.2) Lipase 38 (11-82) Units/L Urine Opiates Screen Negative (Xfileo=413) ng/mL Ur Barbiturates Screen Negative (Pjmjhy=394) ng/mL Ur Phencyclidine Scrn Negative (Cutoff=25) ng/mL Ur Amphetamines Screen Negative (Bxisgn=2071) ng/mL U Benzodiazepines Scrn Negative (Oyuubz=927) ng/mL Urine Cocaine Screen Negative (Cutoff= 300) ng/mL U Marijuana (THC) Screen Negative (Cutoff = 50) ng/mL Ethyl Alcohol 283 H (Less than 10) mg/dL Attestation Statement - Attestation Attestation: I examined this patient and my medical decision-making was reviewed with the Resident Physician. I agree with the documented findings, disposition and treatment plan as described except to the extent set forth below. 43-year-old male presents ED because of alcohol abuse. He has a history of chronic alcohol abuse and has been binge drinking more so over the past 5 days. He is attempting to quit without success. Complains of diffuse illness including nausea and vomiting. Complains of pain across his upper abdomen. No flank or back pain. No diarrhea. No fever. No dyspnea. Patient is tachycardic and tremulous. He is very agitated and anxious. Mucous membranes membranes are dry. Neck supple. Chest is clear to auscultation bilaterally. Chest wall nontender. Abdomen was tenderness across the upper abdomen. Bowel sounds are normal. Lower abdomen nontender. Flanks are nontender. Extremities well perfused, warm and dry. His presenting CIWA score is 22-24 He started on aggressive IV hydration, administered IV magnesium, thiamine and Ativan. He does have an anion gap metabolic acidosis with a bicarbonate of 17 We will check lactate He will be admitted to medical service on a CIWA protocol The high probability of a clinically significant, sudden or life threatening deterioration of the [MEDICAL SUPPLY TECHNICIAN, cardiovascular] system(s) required my full and direct attention, intervention and personal management. The aggregate critical care time was [32] minutes. This time is in addition to time spent performing reported procedures but includes the following: [x] Data Review and interpretation [x] Patient assessment and monitoring of vital signs [x] Documentation [x] Medication orders and management
[2018-03-13 23:30] LABS: Amphetamine Screen,Urine Negative ng/mL (Cutoff=1000); Barbiturate Screen,Urine Negative ng/mL (Cutoff=200); Benzodiazepines Screen,Urine Negative ng/mL (Cutoff=200); Cannabinoid Screen,Urine Negative ng/mL (Cutoff = 50); Cocaine Screen,Urine Negative ng/mL (Cutoff= 300); Opiate Screen,Urine Negative ng/mL (Cutoff=300); Phencyclidine Screen,Urine Negative ng/mL (Cutoff=25)
[2018-03-13] MEDS: Nicotine 14 MG PATCH.TD24 TD SCH (23:34)
[2018-03-14] MEDS ORDERED: Naloxone 0.4 MG/ML INJ IVP PRN (00:07)
--- NOTE | 2018-03-14 00:35 | Internal Med History&Physical ---
Date of Encounter: 03/14/18 Time of Encounter: 23:30 Internal Medicine - H&P: HPI Chief complaint: Alcohol withdrawal Admitted From: Emergency Dept Plans for Post Hospital Care: Home History of present illness: Mr. St is a 43 year old male with history of alcohol abuse who presented to the ED with complaint of alcohol withdrawal symptoms. He states that he has been a long time alcoholic with times of sobriety in the past. He states that he lost his job one week ago and since that time has been drinking a large amount of beer every day. He has been unable to sleep longer than two hours before waking up and shaking and needing to drink to feel better. He states that he has withdrawn from alcohol in the past but does not remember ever having a seizure. He has had abdominal pain, nausea and vomiting the past several days. He has not had fever. Past Med Surg Social Fam HX - Past Medical History Medical history: hypertension Psychiatric history: depression - Past Surgical History Surgical History: appendectomy, other - Social History Smoking Status: Current every day smoker Smokeless Tobacco Status: No Alcohol use: heavy, recent Drug use: none Occupational status: unemployed - Family History Maternal Grandmother Living Status: Still Living Hx Family Cardiac Disorders: Yes Hx Family Respiratory Disorders: No Hx Family Cancer: No Hx Family GI Disorders: Yes Hx Family Endocrine Disorder: No Hx Family Neurologic Disorders: Yes Internal Medicine - H&P: Meds No Known Home Drugs 03/14/18 [History] 3 Allergy/AdvReac Type Severity Reaction Status Date / Time No Known Allergies Allergy Verified 01/26/17 13:40 All Systems PM: A 10-system review of systems was performed and is negative for pertinent findings except as documented above in the HPI. - Constitutional Vitals: Temp Pulse Resp BP Pulse Ox 98.2 F 92 18 132/80 98 03/13/18 21:47 03/13/18 23:37 03/13/18 23:37 03/13/18 23:37 03/13/18 23:37 General appearance: Present: A&O X 3, no acute distress - Head Head exam: Present: atraumatic - Eye Eye exam: Present: EOMI, sclera anicteric - ENT ENT exam: Present: mucous membranes dry - Neck Neck exam general surgery: Present: supple - Respiratory Respiratory exam: Present: CTAB - Cardiovascular Cardiovascular exam: Present: RRR. Absent: diastolic murmur, gallop, rubs, systolic murmur - GI/Abdominal GI/Abdominal exam: Present: normal bowel sounds, soft, tenderness. Absent: distended Additional comments: diffuse tenderness - Extremities Exam Extremities exam: Absent: pedal edema - Neurological Exam Neurological exam: Present: CN II-XII intact, oriented X3, no focal deficits - Psychiatric Psychiatric exam: Present: anxious - Skin Skin exam: Absent: rash Internal Med - H&P Results - Labs CBC & Chem 7: 03/14/18 06:02 03/14/18 06:02 - Assessment and plan (1) Alcohol withdrawal Current Visit: Yes Status: Acute Assessment and plan: Patient very symptomatic (CIWA 22 in ED) with BAL 280 - I am concerned that he could have DTs or withdrawal seizure. CIWA protocol placed in ED and will continue on floor. Thiamine given in ED. Also receiving folate and MVI daily. Check magnesium and replace as needed. - Monitor on telemetry - CIWA protocol Qualifiers: Complication of substance-induced condition: with perceptual disturbance Qualified Code(s): F10.232 - Alcohol dependence with withdrawal with perceptual disturbance (2) Alcoholic ketoacidosis Current Visit: Yes Status: Acute Assessment and plan: Anion gap 25, bicarb 17 - IV fluid resuscitation - Check mag, phos, K and replace as needed - PO intake, can add D5 if poor PO intake - BMP in AM Code(s): E87.2 - Acidosis SNOMED Code(s): 49522962 (3) Hypertension Current Visit: Yes Status: Acute Assessment and plan: BP elevated in ED, has component of essential hypertension as well as alcohol withdrawal. - Treat for alcohol withdrawal - IF BP still elevated once withdrawal symptoms controlled can add IV antihypertensive meds Qualifiers: Hypertension type: essential hypertension Qualified Code(s): I10 - Essential (primary) hypertension - Time Spent With Patient Total time spent is greater than 50% in coordination of care (as documented) at patient's floor/unit and/or counseling patient: 25 - 35 minutes
[2018-03-14] MEDS: 0.9 % Sodium Chloride 1,000 ML IVC SCH ×2 (01:30→02:13)
[2018-03-14] MEDS ORDERED: 0.9 % Sodium Chloride 1,000 ML ONE (02:13)
[2018-03-14] MEDS: traZODone 50 MG TABLET PO PRN ×2 (02:30→20:54)
[2018-03-14 06:30] LABS: Basophils # 0.1 K/mcL (0.0-0.2); Basophils % 0.8 %; Eosinophils % 0.5 %; Hematocrit 37.2 % (37.5-50.1); Immature Granulocytes % 0.7 % (0-4); Lymphocytes # 1.9 K/mcL (0.6-4.6); Mean Corpuscular HGB Conc 35.5 g/dL (31.6-35.5); Mean Corpuscular Hemoglobin 32.8 pg (28.0-33.3); Mean Corpuscular Volume 92.5 fL (83.0-100.0); Mean Platelet Volume 9.4 fL (9.4-12.4); Monocytes # 0.6 K/mcL (0.0-1.3); Monocytes % 8.6 %; Neutrophils # 4.8 K/mcL (1.6-8.9); Nucleated Red Blood Cells 0.3 /100 WBC (0); Platelet Count 198 K/mcL (140-400); Red Blood Count 4.02 M/mcL (4.19-5.50); Red Cell Distribution Width 12.6 % (11.5-14.5); Segmented Neutrophils % 64.4 %
[2018-03-14 06:31] LABS: Hemoglobin 13.2 g/dL (12.9-16.9)
[2018-03-14 06:40] LABS: BUN/Creatinine Ratio 12 (6-26); Blood Urea Nitrogen 12 mg/dL (6-20); Calcium 7.8 mg/dL (8.6-10.3); Carbon Dioxide 23 mEq/L (23-29); Chloride 105 mEq/L (98-107); Glucose 137 mg/dL (70-105); Osmolality,Calculated 284 (280-300); Potassium 4.2 mEq/L (3.5-5.1); Sodium 136 mEq/L (136-145); eGFR For African Americans > 60 (> 60); eGFR For Non-African Americans > 60 (> 60)
[2018-03-14] MEDS: Thiamine (B-1) 100 MG TABLET PO SCH (10:10)
[2018-03-14] MEDS: Nicotine 14 MG PATCH.TD24 TD SCH (10:10)
[2018-03-14] MEDS: Vitamin B Complex/Vit C/Vit E 1 EACH TABLET PO SCH (10:10)
[2018-03-14] MEDS: Folic Acid 1 MG TABLET PO SCH (10:10)
[2018-03-14] MEDS ORDERED: *HR* LORazepam 2 MG/ML VIAL IVP PRN (11:04)
--- NOTE | 2018-03-14 11:21 | Event Note ---
Date of Encounter: 03/14/18 Time of Encounter: 11:21 Patient continues to have symptoms of alcohol withdrawal. We will increase Ativan as needed for CIWA protocol coverage. We will also place him on Librium orally. 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 Continue supportive care.
[2018-03-14] MEDS: *HR* LORazepam 2 MG/ML VIAL IVP PRN ×3 (11:31→23:02)
[2018-03-14] MEDS: Ringers Solution, Lactated 1,000 ML IVC SCH ×3 (12:23→23:13)
[2018-03-15] MEDS: Thiamine (B-1) 100 MG TABLET PO SCH (08:59)
[2018-03-15] MEDS: Folic Acid 1 MG TABLET PO SCH (08:59)
[2018-03-15] MEDS: Vitamin B Complex/Vit C/Vit E 1 EACH TABLET PO SCH (08:59)
[2018-03-15] MEDS: *HR* LORazepam 2 MG/ML VIAL IVP PRN ×3 (08:59→16:18)
[2018-03-15] MEDS: Nicotine 14 MG PATCH.TD24 TD SCH (08:59)
[2018-03-15] MEDS: Lisinopril-HCTZ 20-12.5mg TABLET PO SCH (10:06)
[2018-03-15] MEDS: Ringers Solution, Lactated 1,000 ML IVC SCH (12:15)
--- NOTE | 2018-03-15 13:25 | Internal Med Progress Note ---
Date of Encounter: 03/15/18 Time of Encounter: 10:40 - Assessment and plan (1) Alcohol withdrawal Current Visit: Yes Status: Acute Assessment and plan: On oral Librium. Ativan intravenously as needed. Has required intravenous Ativan intermittently. Continue supportive care with thiamine and folic acid. Tolerating oral diet. [employer] worker consulted regarding alcohol rehabilitation. DVT prophylaxis with SCDs Qualifiers: Complication of substance-induced condition: with perceptual disturbance Qualified Code(s): F10.232 - Alcohol dependence with withdrawal with perceptual disturbance (2) Alcoholic ketoacidosis Current Visit: Yes Status: Resolved Assessment and plan: This has resolved with IV hydration. Code(s): E87.2 - Acidosis SNOMED Code(s): 09146586 (3) Hypertension Current Visit: Yes Status: Chronic Assessment and plan: Blood pressure is uncontrolled. Resume lisinopril/hydrochlorothiazide. Monitor blood pressure closely. Qualifiers: Hypertension type: essential hypertension Qualified Code(s): I10 - Essential (primary) hypertension - Time Spent With Patient Total time spent is greater than 50% in coordination of care (as documented) at patient's floor/unit and/or counseling patient: - Subjective Interval history: Patient complains of anxiety. Otherwise doing better. Denies any tremors. Concerned about alcohol relapse and wants to go to rehabilitation. No chest pain or palpitations. No nausea or vomiting. - Constitutional Vitals: Temp Pulse Resp BP Pulse Ox 97.6 F 88 18 170/127 98 03/15/18 04:38 03/15/18 11:00 03/15/18 11:00 03/15/18 11:00 03/15/18 07:00 General appearance: Present: A&O X 3, no acute distress, answers questions appropriately - Eye Eye exam: Present: EOMI, PERRL, conjuntiva pink, sclera anicteric - Neck Neck exam general surgery: Present: supple, trachea midline. Absent: lymphadenopathy - Respiratory Respiratory exam: Present: CTAB. Absent: accessory muscle use, rales, rhonchi, wheezes - Cardiovascular Cardiovascular exam: Present: RRR, +S1, +S2. Absent: diastolic murmur, gallop, rubs, systolic murmur - GI/Abdominal GI/Abdominal exam: Present: normal bowel sounds, soft, no peritoneal signs. Absent: distended, tenderness - Extremities Exam Extremities exam: Present: warm, radial pulses palpable and symmetrical. Absent : calf tenderness, cyanotic, pedal edema - Neurological Exam Neurological exam: Present: alert, oriented X3, no focal deficits. Absent: facial droop, speech deficit - Skin Skin exam: Present: dry, intact Internal Medicine: Result - Labs CBC & Chem 7: 03/14/18 06:02 03/14/18 06:02 Consult Discharge Plan - Plan Referrals: NONE,PCP [Primary Care Provider] -
[2018-03-15] MEDS: hydrOXYzine pamoate 25 MG CAPSULE PO PRN ×2 (15:00→21:24)
[2018-03-15] MEDS: traZODone 50 MG TABLET PO PRN (21:26)
[2018-03-16] MEDS: Ringers Solution, Lactated 1,000 ML IVC SCH (09:02)
[2018-03-16] MEDS: Folic Acid 1 MG TABLET PO SCH (09:04)
[2018-03-16] MEDS: Lisinopril-HCTZ 20-12.5mg TABLET PO SCH (09:04)
[2018-03-16] MEDS: Thiamine (B-1) 100 MG TABLET PO SCH (09:04)
[2018-03-16] MEDS: Vitamin B Complex/Vit C/Vit E 1 EACH TABLET PO SCH (09:04)
[2018-03-16] MEDS: Nicotine 14 MG PATCH.TD24 TD SCH (09:04)
[2018-03-16 10:05] LABS: BUN/Creatinine Ratio 7 (6-26); Blood Urea Nitrogen 7 mg/dL (6-20); Calcium 9.4 mg/dL (8.6-10.3); Carbon Dioxide 23 mEq/L (23-29); Chloride 109 mEq/L (98-107); Glucose 127 mg/dL (70-105); Osmolality,Calculated 288 (280-300); Sodium 139 mEq/L (136-145); eGFR For African Americans > 60 (> 60); eGFR For Non-African Americans > 60 (> 60)
[2018-03-16 11:41] VITALS: BP 185/126
--- NOTE | 2018-03-16 13:33 | Discharge Summary ---
Date of Encounter: 03/16/18 Time of Encounter: 11:00 - Discharge Diagnosis (1) Alcohol withdrawal Priority: Primary Status: Acute Qualifiers: Complication of substance-induced condition: with perceptual disturbance Qualified Code(s): F10.232 - Alcohol dependence with withdrawal with perceptual disturbance (2) Alcoholic ketoacidosis Priority: Secondary Status: Resolved Code(s): E87.2 - Acidosis SNOMED Code(s): 24431187 (3) Hypertension Priority: Secondary Status: Chronic Qualifiers: Hypertension type: essential hypertension Qualified Code(s): I10 - Essential (primary) hypertension Hospital course: Patient is a 43-year-old male with past medical history significant for alcohol abuse who presented to the ER with complaint of alcohol withdrawal symptoms. He reported that he had been a long time alcoholic with times of sobriety in the past. He stated that he lost his job one week ago and since that time has been drinking a large amount of beer every day. He has been unable to sleep longer than two hours before waking up and shaking and needing to drink to feel better. He states that he has withdrawn from alcohol in the past but does not remember ever having a seizure. Patient decided to come to the ER for a detox treatment. During patients hospital stay he was treated with Librium without any issues or complications of alcohol withdrawal. Patient is anxious and requesting to be discharged home to look for employment. During patients hospital stay information was given to him regarding alcoholic inpatient treatment centers and resources. - Time Spent with Patient Total time spent providing and/or coordinating discharge services: Less than 30 minutes - Discharge Medications Home Medications: Lisinopril-HCTZ 20-12.5 [Prinzide 20-12.5] 1 tab PO DAILY 03/14/18 [History] Meloxicam [Meloxicam] 15 mg PO DAILY 03/14/18 [History] Omeprazole [PriLOSEC] 20 mg PO DAILY 03/14/18 [History] hydrOXYzine pamoate [HydrOXYzine Pamoate] 50 mg PO QID PRN 03/14/18 [History] Allergies/Adverse Reactions: 3 Allergy/AdvReac Type Severity Reaction Status Date / Time No Known Allergies Allergy Verified 01/26/17 13:40 Date of admission: 03/13/18 23:39 Primary care physician: PCP NONE - Constitutional Vitals: Temp Pulse Resp BP Pulse Ox 98 F 97 17 185/126 97 03/16/18 11:00 03/16/18 11:00 03/16/18 11:00 03/16/18 11:00 03/16/18 11:00 General appearance: Present: A&O X 3, no acute distress, answers questions appropriately - Cardiovascular Cardiovascular exam: Present: RRR, +S1, +S2. Absent: diastolic murmur, gallop, rubs, systolic murmur - Patient Status Disposition: Home, Self-Care Condition: Fair - Discharge Instructions Follow Up With: NONE,PCP [Primary Care Provider] - - VTE Documentation of Mechanical Device: Intermittent pneumatic compression device
== END 2018-03-16 14:27 | disposition home or self-care (01) ==
LOC: 2NENU 21:10 → EMEROO 21:10 → SUATTDRO 23:39 → 2NENU 03-14 00:25
PROVIDERS: ADMIT Internal Medicine; ATTEND Hospitalist

== ENCOUNTER 2018-03-18 02:19 | Inpatient (IN) ==
[2018-03-18 02:44] LABS: Bilirubin,Urine Negative (Negative); Blood,Urine Negative (Negative); Clarity,Urine Clear (Clear); Color,Urine Yellow (Yellow); Glucose,Urine (UA) Normal (Normal); Ketones,Urine Negative (Negative); Leukocyte Esterase,Urine Negative (Negative); Nitrite,Urine Negative (Negative); PH,Urine 6.5 pH Units (5.0-8.0); Protein,Urine Negative (Neg-Trace); Urobilinogen,Urine Normal (Normal)
--- NOTE | 2018-03-18 02:55 | Emergency Department Note ---
Disposition Clinical Impression: Alcoholic intoxication Qualifiers: Complication of substance-induced condition: with unspecified complication Qualified Code(s): F10.929 - Alcohol use, unspecified with intoxication, unspecified Alcohol withdrawal Qualifiers: Complication of substance-induced condition: uncomplicated Qualified Code(s): F10.230 - Alcohol dependence with withdrawal, uncomplicated Disposition: Admitted As Inpatient Condition: Undetermined Alcohol HPI - General Chief Complaint: ED Alcohol Abuse Stated Complaint: "alcoholic" Time Seen by Provider: 03/18/18 02:22 Source: patient, EMS Mode of arrival: EMS Limitations: altered mental status (intoxication) Nursing Notes Reviewed: Yes Vital Signs Reviewed: Yes - History of Present Illness HPI Narrative: 43-year-old male with a history of alcoholism presents emergency department tonight via EMS for alcohol intoxication. Patient states that since he left here 3 days ago he has done nothing but drink heavily since he was unable to get into a rehabilitation center. He states at no point in the last 3 days has he been sober. He did state that he was having withdrawal symptoms while he was here and was requiring medication which did help him drink less once he left here but once it wore off he was able to drink more more. He states he drinks from the time he gets up until the time he goes to bed. He states he came back because he knows that he will if he does not do something about his alcoholism. When asked the patient was suicidal he stated no. Patient states to continue drinking binge was because of the tremors, nausea, vomiting when he is not drinking. He states when he wakes up after sleeping he feels we will therefore he just starts drinking again he continues to drink until he goes to bed to avoid those feelings. He does deny auditory him his usual hallucinations Patient was admitted here 03/13/18 for alcohol intoxication asking for help with AA or rehabilitation center. Patient that was social work as well as nursing staff, hospitalist here and was given a plethora of information regarding programs present patient and out. Patient states that he wanted to go to the [facility] and he was not able to do to a service connection. Pt Subjective Complaint: alcohol intoxication, desires rehab Last Drink: just MISSILEMAN Alcohol Type: Beer Amount of alcohol consumed: Continuous alcohol consumption for approximately 72 hours Chronic Alcohol Use: Yes Previous Visits for Alcohol Intoxication?: Yes Recent Trauma: No Associated symptoms: Reports: vomiting, tremors Treatments prior to arrival: none - Related Data Home Medications Medication Instructions Recorded Confirmed Lisinopril-HCTZ 20-12.5 [Prinzide 1 tab PO DAILY 03/14/18 03/14/18 20-12.5] Meloxicam 15 mg PO DAILY 03/14/18 03/14/18 Omeprazole [PriLOSEC] 20 mg PO DAILY 03/14/18 03/14/18 hydrOXYzine pamoate [HydrOXYzine 50 mg PO QID PRN 03/14/18 03/14/18 Pamoate] Allergies Allergy/AdvReac Type Severity Reaction Status Date / Time No Known Allergies Allergy Verified 01/26/17 13:40 All systems ED: reviewed and negative except as stated. Review of Systems: As Per HPI Constitutional: Denies: fever, chills, weakness, weight change, night sweats Cardiovascular: Denies: chest pain, palpitations, dyspnea on exertion, edema Respiratory: Denies: cough, dyspnea, wheezes, hemoptysis Gastrointestinal: Reports: abdominal pain, nausea, vomiting. Denies: diarrhea, constipation, hematemesis, melena, hematochezia Genitourinary: Denies: urgency, dysuria, frequency Neurological: Denies: headache, weakness, numbness, paresthesias, confusion, abnormal gait, vertigo Psychiatric: Reports: anxiety, depression, suicidal thoughts (Previously, not current). Denies: homicidal thoughts, auditory hallucinations, visual hallucinations Past Medical History - Past Medical History Attestation: Yes The following information was validated with the patient. Source: patient, old records reviewed Medical history: Reports: hypertension Surgical history: Reports: appendectomy, other Psychiatric history: Reports: depression - Social History Smoking Status: Current every day smoker Smokeless Tobacco Status: No Alcohol use: Reports: heavy Drug use: Reports: none Physical Exam - General Limitations: no limitations General appearance: appears intoxicated, lethargic - Head Head exam: atraumatic, normocephalic, normal inspection - Eye Eye exam: Present: PERRL, conjunctival injection. Absent: scleral icterus - ENT ENT exam: mucous membranes moist - Neck Neck exam: Present: normal inspection, full ROM, trachea midline - Chest Chest inspection: Present: normal inspection, symmetric chest wall rise - Cardiovascular Cardiovascular exam: Present: regular rate, normal rhythm, normal heart sounds - Abdominal Exam Abdominal exam: Present: soft, Non-Tender. Absent: tenderness, distention, guarding, rebound, rigidity - Extremities Exam Extremities exam: Present: normal inspection, full ROM - Back Exam Back exam: Present: normal inspection, full ROM. Absent: tenderness - Neurological Exam Neurological exam: Present: alert, oriented X3, other (Severe intoxication) - Psychiatric Psychiatric exam: Present: depressed. Absent: homicidal ideation, suicidal ideation - Skin Skin exam: Present: warm, dry, intact, diaphoresis Course Course Narrative: Nontoxic appearing obviously intoxicated male, lethargic in nature, falls asleep easily due to intoxication. He arouses easily and necessarily similar because he is drunk. Respirations are easy and even, patient does not appear to be responding to internal stimuli. Assessment negative with the exception of intoxication. Patient is maintaining airway on his own, vital signs are stable for him. We will obtain basic labs, blood alcohol level, and UA, and establish CIWA protocol. Patient is requesting an asking for help again for rehabilitation centers. Concern is for withdrawing, DTs due to the 3 day drinking binge and chronic alcoholism. We will continue to monitor and reevaluate. - Reevaluation(s) Reevaluation #1: Blood alcohol content 273. Elevated liver enzymes consistent with alcohol. Patient has been a week, has slowly been eating snacks and drinking soda is to avoid hypoglycemia. We will discontinue to be slurred however not as bad as they were previously. Patient very emotional, crying stating that he needs assistance with becoming sober as he knows he will eventually just kill himself with alcohol. He does state that he will stay with this admission and hopefully can find somewhere inpatient for rehabilitation services. We will continue to monitor and reevaluate as metabolic content comes down. Time: 03:30 Reevaluation #2: Patient becoming more and more exhibiting more withdrawal symptoms. Original CIWA score 4, now closer to 10-12. Patient noted to be walking in his room fidgeting extensively. We will go ahead and give 1 dose of Ativan start thiamine. We will page hospitalist for admission as patient is becoming more and more sober. Attending Dr. Ku with 1:1 face time with patient and agrees with POC Time: 04:45 Reevaluation #3: Spoke with hospitalist accepted to hoptalist services Additional Reevaluation(s): Patient still in unit, noted with vomiting, tremoring, sweating. We will give another dose of Ativan as well as some Phenergan. Vital Signs Temperature 97.7 F 03/18/18 02:22 Pulse Rate 101 03/18/18 02:22 Respiratory Rate 18 03/18/18 02:22 Blood Pressure 131/89 03/18/18 02:22 O2 Sat by Pulse Oximetry 97 03/18/18 02:22 Temperature 97.7 F 03/18/18 02:22 Pulse Rate 112 03/18/18 04:33 Respiratory Rate 18 03/18/18 04:33 Blood Pressure 124/88 03/18/18 04:33 O2 Sat by Pulse Oximetry 95 03/18/18 04:33 Oxygen Delivery Oxygen Delivery Room Air Alcohol - Differential Diagnosis Differential Diagnosis: Likely: alcohol withdrawal delirium, acute alcohol intoxication, alcohol ketoacidosis, metabolic abnormality, alcohol withdrawal syndrome. Unlikely: hypomagnesemia, alcohol withdrawal seizure - Medical Records Medical records reviewed: Yes I reviewed the patient's medical records. - Lab Data Lab results reviewed: Yes I reviewed the patient's lab results. Result diagrams: 03/18/18 02:53 03/18/18 02:53 Lab Results 03/18/18 03/18/18 03/18/18 Range/Units 02:28 02:28 02:53 WBC 9.3 (4.3-11.1) K/mcL RBC 4.75 (4.19-5.50) M/mcL Hgb 15.9 D (12.9-16.9) g/dL Hct 43.9 (37.5-50.1) % MCV 92.4 (83.0-100.0) fL MCH 33.5 H (28.0-33.3) pg MCHC 36.2 H (31.6-35.5) g/dL RDW 12.4 (11.5-14.5) % Plt Count 190 (140-400) K/mcL MPV 9.3 L (9.4-12.4) fL Immature Gran % 0.3 (0-4) % Seg Neutrophils % 49.5 % Lymphocytes % 39.5 % Monocytes % 6.4 % Eosinophils % 3.5 % Basophils % 0.8 % Neutrophils # 4.6 (1.6-8.9) K/mcL Lymphocytes # 3.7 (0.6-4.6) K/mcL Monocytes # 0.6 (0.0-1.3) K/mcL Eosinophils # 0.3 (0.0-0.6) K/mcL Basophils # 0.1 (0.0-0.2) K/mcL Sodium (136-145) mEq/L Potassium (3.5-5.1) mEq/L Chloride (98-107) mEq/L Carbon Dioxide (23-29) mEq/L BUN (6-20) mg/dL Creatinine (0.70-1.30) mg/dL Est GFR ( Amer) (> 60) Est GFR (Non-Af Amer) (> 60) BUN/Creatinine Ratio (6-26) Glucose (70-105) mg/dL Calculated Osmolality (280-300) Calcium (8.6-10.3) mg/dL Total Bilirubin (0.3-1.0) mg/dL Direct Bilirubin (0.0-0.2) mg/dL Indirect Bilirubin (0.0-1.2) mg/dL AST (13-39) Units/L ALT (7-52) Units/L Alkaline Phosphatase (34-104) Units/L Serum Total Protein (6.4-8.9) g/dL Albumin (3.5-5.7) g/dL Globulin (2.4-3.5) g/dL Albumin/Globulin Ratio (1.1-2.2) Urine Color Yellow (Yellow) Urine Clarity Clear (Clear) Urine pH 6.5 (5.0-8.0) pH Units Ur Specific [place] 1.010 (1.010-1.025) Urine Protein Negative (Neg-Trace) mg/dL Urine Glucose (UA) Normal (Normal) mg/dL Urine Ketones Negative (Negative) mg/dL Urine Blood Negative (Negative) Urine Nitrite Negative (Negative) Urine Bilirubin Negative (Negative) Urine Urobilinogen Normal (Normal) mg/dL Ur Leukocyte Esterase Negative (Negative) Salicylates (15.0-30.0) mg/dL Urine Opiates Screen Negative (Ccujnk=649) ng/mL Acetaminophen (10-20) mcg/mL Ur Barbiturates Screen Negative (Cczhle=831) ng/mL Ur Phencyclidine Scrn Negative (Cutoff=25) ng/mL Ur Amphetamines Screen Negative (Bkooly=7161) ng/mL U Benzodiazepines Scrn Positive H (Fofdil=926) ng/mL Urine Cocaine Screen Negative (Cutoff= 300) ng/mL U Marijuana (THC) Screen Negative (Cutoff = 50) ng/mL Ethyl Alcohol (Less than 10) mg/dL 03/18/18 03/18/18 Range/Units 02:53 02:53 WBC (4.3-11.1) K/mcL RBC (4.19-5.50) M/mcL Hgb (12.9-16.9) g/dL Hct (37.5-50.1) % MCV (83.0-100.0) fL MCH (28.0-33.3) pg MCHC (31.6-35.5) g/dL RDW (11.5-14.5) % Plt Count (140-400) K/mcL MPV (9.4-12.4) fL Immature Gran % (0-4) % Seg Neutrophils % % Lymphocytes % % Monocytes % % Eosinophils % % Basophils % % Neutrophils # (1.6-8.9) K/mcL Lymphocytes # (0.6-4.6) K/mcL Monocytes # (0.0-1.3) K/mcL Eosinophils # (0.0-0.6) K/mcL Basophils # (0.0-0.2) K/mcL Sodium 139 (136-145) mEq/L Potassium 3.4 L (3.5-5.1) mEq/L Chloride 104 (98-107) mEq/L Carbon Dioxide 22 L (23-29) mEq/L BUN 11 (6-20) mg/dL Creatinine 0.94 (0.70-1.30) mg/dL Est GFR ( Amer) > 60 (> 60) Est GFR (Non-Af Amer) > 60 (> 60) BUN/Creatinine Ratio 12 (6-26) Glucose 84 (70-105) mg/dL Calculated Osmolality 287 (280-300) Calcium 9.3 (8.6-10.3) mg/dL Total Bilirubin 0.6 (0.3-1.0) mg/dL Direct Bilirubin 0.2 (0.0-0.2) mg/dL Indirect Bilirubin 0.4 (0.0-1.2) mg/dL AST 50 H (13-39) Units/L ALT 56 H (7-52) Units/L Alkaline Phosphatase 84 (34-104) Units/L Serum Total Protein 7.4 (6.4-8.9) g/dL Albumin 4.7 (3.5-5.7) g/dL Globulin 2.7 (2.4-3.5) g/dL Albumin/Globulin Ratio 1.7 (1.1-2.2) Urine Color (Yellow) Urine Clarity (Clear) Urine pH (5.0-8.0) pH Units Ur Specific [place] (1.010-1.025) Urine Protein (Neg-Trace) mg/dL Urine Glucose (UA) (Normal) mg/dL Urine Ketones (Negative) mg/dL Urine Blood (Negative) Urine Nitrite (Negative) Urine Bilirubin (Negative) Urine Urobilinogen (Normal) mg/dL Ur Leukocyte Esterase (Negative) Salicylates < 2.5 L (15.0-30.0) mg/dL Urine Opiates Screen (Wywlmr=112) ng/mL Acetaminophen < 10 L (10-20) mcg/mL Ur Barbiturates Screen (Wxjybd=860) ng/mL Ur Phencyclidine Scrn (Cutoff=25) ng/mL Ur Amphetamines Screen (Vnyiky=6744) ng/mL U Benzodiazepines Scrn (Qeqqtf=073) ng/mL Urine Cocaine Screen (Cutoff= 300) ng/mL U Marijuana (THC) Screen (Cutoff = 50) ng/mL Ethyl Alcohol 273 H (Less than 10) mg/dL
[2018-03-18 03:03] LABS: Amphetamine Screen,Urine Negative ng/mL (Cutoff=1000); Barbiturate Screen,Urine Negative ng/mL (Cutoff=200); Benzodiazepines Screen,Urine Positive ng/mL (Cutoff=200); Cannabinoid Screen,Urine Negative ng/mL (Cutoff = 50); Cocaine Screen,Urine Negative ng/mL (Cutoff= 300); Opiate Screen,Urine Negative ng/mL (Cutoff=300); Phencyclidine Screen,Urine Negative ng/mL (Cutoff=25)
[2018-03-18 03:11] LABS: Basophils # 0.1 K/mcL (0.0-0.2); Basophils % 0.8 %; Eosinophils # 0.3 K/mcL (0.0-0.6); Eosinophils % 3.5 %; Hematocrit 43.9 % (37.5-50.1); Immature Granulocytes % 0.3 % (0-4); Lymphocytes # 3.7 K/mcL (0.6-4.6); Lymphocytes % 39.5 %; Mean Corpuscular HGB Conc 36.2 g/dL (31.6-35.5); Mean Corpuscular Hemoglobin 33.5 pg (28.0-33.3); Mean Corpuscular Volume 92.4 fL (83.0-100.0); Mean Platelet Volume 9.3 fL (9.4-12.4); Monocytes # 0.6 K/mcL (0.0-1.3); Monocytes % 6.4 %; Neutrophils # 4.6 K/mcL (1.6-8.9); Platelet Count 190 K/mcL (140-400); Red Blood Count 4.75 M/mcL (4.19-5.50); Red Cell Distribution Width 12.4 % (11.5-14.5); Segmented Neutrophils % 49.5 %
[2018-03-18 03:12] LABS: Hemoglobin 15.9 g/dL (12.9-16.9)
[2018-03-18 03:28] LABS: Acetaminophen < 10 mcg/mL (10-20)
[2018-03-18 03:29] LABS: Albumin 4.7 g/dL (3.5-5.7); Albumin/Globulin Ratio 1.7 (1.1-2.2); Bilirubin,Direct 0.2 mg/dL (0.0-0.2); Bilirubin,Indirect 0.4 mg/dL (0.0-1.2); Bilirubin,Total 0.6 mg/dL (0.3-1.0); Globulin 2.7 g/dL (2.4-3.5); Total Protein 7.4 g/dL (6.4-8.9)
[2018-03-18 03:36] LABS: BUN/Creatinine Ratio 12 (6-26); Blood Urea Nitrogen 11 mg/dL (6-20); Calcium 9.3 mg/dL (8.6-10.3); Carbon Dioxide 22 mEq/L (23-29); Chloride 104 mEq/L (98-107); Ethanol 273 mg/dL (Less than 10); Glucose 84 mg/dL (70-105); Osmolality,Calculated 287 (280-300); Potassium 3.4 mEq/L (3.5-5.1); Salicylate < 2.5 mg/dL (15.0-30.0); Sodium 139 mEq/L (136-145); eGFR For African Americans > 60 (> 60); eGFR For Non-African Americans > 60 (> 60)
[2018-03-18] MEDS ORDERED: Thiamine (B-1) 100 MG in D5% in Water 50 ML IVPB ONE (04:19)
[2018-03-18] MEDS ORDERED: *HR* LORazepam 2 MG/ML VIAL IVP ONE ×2 (04:38→05:44)
--- NOTE | 2018-03-18 05:31 | Emergency Department Note ---
Disposition Clinical Impression: Alcoholic intoxication Qualifiers: Complication of substance-induced condition: with unspecified complication Qualified Code(s): F10.929 - Alcohol use, unspecified with intoxication, unspecified Alcohol withdrawal Qualifiers: Complication of substance-induced condition: uncomplicated Qualified Code(s): F10.230 - Alcohol dependence with withdrawal, uncomplicated Disposition: Admitted As Inpatient Condition: Undetermined General Adult HPI - General Chief complaint: ED Alcohol Abuse Stated complaint: "alcoholic" Time Seen by Provider: 03/18/18 02:22 Source: patient, EMS Mode of arrival: EMS Limitations: no limitations Nursing Notes Reviewed: Yes Vital Signs Reviewed: Yes - History of Present Illness Pain Scale: 2 - Related Data Home Medications Medication Instructions Recorded Confirmed Lisinopril-HCTZ 20-12.5 [Prinzide 1 tab PO DAILY 03/14/18 03/14/18 20-12.5] Meloxicam 15 mg PO DAILY 03/14/18 03/14/18 Omeprazole [PriLOSEC] 20 mg PO DAILY 03/14/18 03/14/18 hydrOXYzine pamoate [HydrOXYzine 50 mg PO QID PRN 03/14/18 03/14/18 Pamoate] Allergies Allergy/AdvReac Type Severity Reaction Status Date / Time No Known Allergies Allergy Verified 01/26/17 13:40 Constitutional: Denies: fever, chills, weakness, weight change, night sweats Cardiovascular: Denies: chest pain, palpitations, dyspnea on exertion, edema Respiratory: Denies: cough, dyspnea, wheezes, hemoptysis Gastrointestinal: Reports: abdominal pain, nausea, vomiting. Denies: diarrhea, constipation, hematemesis, melena, hematochezia Genitourinary: Denies: urgency, dysuria, frequency Neurological: Denies: headache, weakness, numbness, paresthesias, confusion, abnormal gait, vertigo Psychiatric: Reports: anxiety, depression, suicidal thoughts (Previously, not current). Denies: homicidal thoughts, auditory hallucinations, visual hallucinations Past Medical History - Past Medical History Medical history: Reports: hypertension Surgical history: Reports: appendectomy, other Psychiatric history: Reports: depression - Social History Smoking Status: Current every day smoker Smokeless Tobacco Status: No Alcohol use: Reports: heavy Drug use: Reports: none Physical Exam - General Limitations: no limitations General appearance: appears intoxicated, lethargic Course Vital Signs Temperature 97.7 F 03/18/18 02:22 Pulse Rate 101 03/18/18 02:22 Respiratory Rate 18 03/18/18 02:22 Blood Pressure 131/89 03/18/18 02:22 O2 Sat by Pulse Oximetry 97 03/18/18 02:22 Temperature 97.7 F 03/18/18 02:22 Pulse Rate 112 03/18/18 04:33 Respiratory Rate 18 03/18/18 04:33 Blood Pressure 124/88 03/18/18 04:33 O2 Sat by Pulse Oximetry 95 03/18/18 04:33 Oxygen Delivery Oxygen Delivery Room Air Medical Decision Making - Lab Data Result diagrams: 03/18/18 02:53 03/18/18 02:53 Lab Results 03/18/18 03/18/18 03/18/18 Range/Units 02:28 02:28 02:53 WBC 9.3 (4.3-11.1) K/mcL RBC 4.75 (4.19-5.50) M/mcL Hgb 15.9 D (12.9-16.9) g/dL Hct 43.9 (37.5-50.1) % MCV 92.4 (83.0-100.0) fL MCH 33.5 H (28.0-33.3) pg MCHC 36.2 H (31.6-35.5) g/dL RDW 12.4 (11.5-14.5) % Plt Count 190 (140-400) K/mcL MPV 9.3 L (9.4-12.4) fL Immature Gran % 0.3 (0-4) % Seg Neutrophils % 49.5 % Lymphocytes % 39.5 % Monocytes % 6.4 % Eosinophils % 3.5 % Basophils % 0.8 % Neutrophils # 4.6 (1.6-8.9) K/mcL Lymphocytes # 3.7 (0.6-4.6) K/mcL Monocytes # 0.6 (0.0-1.3) K/mcL Eosinophils # 0.3 (0.0-0.6) K/mcL Basophils # 0.1 (0.0-0.2) K/mcL Sodium (136-145) mEq/L Potassium (3.5-5.1) mEq/L Chloride (98-107) mEq/L Carbon Dioxide (23-29) mEq/L BUN (6-20) mg/dL Creatinine (0.70-1.30) mg/dL Est GFR ( Amer) (> 60) Est GFR (Non-Af Amer) (> 60) BUN/Creatinine Ratio (6-26) Glucose (70-105) mg/dL Calculated Osmolality (280-300) Calcium (8.6-10.3) mg/dL Total Bilirubin (0.3-1.0) mg/dL Direct Bilirubin (0.0-0.2) mg/dL Indirect Bilirubin (0.0-1.2) mg/dL AST (13-39) Units/L ALT (7-52) Units/L Alkaline Phosphatase (34-104) Units/L Serum Total Protein (6.4-8.9) g/dL Albumin (3.5-5.7) g/dL Globulin (2.4-3.5) g/dL Albumin/Globulin Ratio (1.1-2.2) Urine Color Yellow (Yellow) Urine Clarity Clear (Clear) Urine pH 6.5 (5.0-8.0) pH Units Ur Specific Vowinckel 1.010 (1.010-1.025) Urine Protein Negative (Neg-Trace) mg/dL Urine Glucose (UA) Normal (Normal) mg/dL Urine Ketones Negative (Negative) mg/dL Urine Blood Negative (Negative) Urine Nitrite Negative (Negative) Urine Bilirubin Negative (Negative) Urine Urobilinogen Normal (Normal) mg/dL Ur Leukocyte Esterase Negative (Negative) Salicylates (15.0-30.0) mg/dL Urine Opiates Screen Negative (Opuhwz=763) ng/mL Acetaminophen (10-20) mcg/mL Ur Barbiturates Screen Negative (Tunzzz=971) ng/mL Ur Phencyclidine Scrn Negative (Cutoff=25) ng/mL Ur Amphetamines Screen Negative (Euaxxz=5403) ng/mL U Benzodiazepines Scrn Positive H (Cmwkyu=055) ng/mL Urine Cocaine Screen Negative (Cutoff= 300) ng/mL U Marijuana (THC) Screen Negative (Cutoff = 50) ng/mL Ethyl Alcohol (Less than 10) mg/dL 03/18/18 03/18/18 Range/Units 02:53 02:53 WBC (4.3-11.1) K/mcL RBC (4.19-5.50) M/mcL Hgb (12.9-16.9) g/dL Hct (37.5-50.1) % MCV (83.0-100.0) fL MCH (28.0-33.3) pg MCHC (31.6-35.5) g/dL RDW (11.5-14.5) % Plt Count (140-400) K/mcL MPV (9.4-12.4) fL Immature Gran % (0-4) % Seg Neutrophils % % Lymphocytes % % Monocytes % % Eosinophils % % Basophils % % Neutrophils # (1.6-8.9) K/mcL Lymphocytes # (0.6-4.6) K/mcL Monocytes # (0.0-1.3) K/mcL Eosinophils # (0.0-0.6) K/mcL Basophils # (0.0-0.2) K/mcL Sodium 139 (136-145) mEq/L Potassium 3.4 L (3.5-5.1) mEq/L Chloride 104 (98-107) mEq/L Carbon Dioxide 22 L (23-29) mEq/L BUN 11 (6-20) mg/dL Creatinine 0.94 (0.70-1.30) mg/dL Est GFR ( Amer) > 60 (> 60) Est GFR (Non-Af Amer) > 60 (> 60) BUN/Creatinine Ratio 12 (6-26) Glucose 84 (70-105) mg/dL Calculated Osmolality 287 (280-300) Calcium 9.3 (8.6-10.3) mg/dL Total Bilirubin 0.6 (0.3-1.0) mg/dL Direct Bilirubin 0.2 (0.0-0.2) mg/dL Indirect Bilirubin 0.4 (0.0-1.2) mg/dL AST 50 H (13-39) Units/L ALT 56 H (7-52) Units/L Alkaline Phosphatase 84 (34-104) Units/L Serum Total Protein 7.4 (6.4-8.9) g/dL Albumin 4.7 (3.5-5.7) g/dL Globulin 2.7 (2.4-3.5) g/dL Albumin/Globulin Ratio 1.7 (1.1-2.2) Urine Color (Yellow) Urine Clarity (Clear) Urine pH (5.0-8.0) pH Units Ur Specific Vowinckel (1.010-1.025) Urine Protein (Neg-Trace) mg/dL Urine Glucose (UA) (Normal) mg/dL Urine Ketones (Negative) mg/dL Urine Blood (Negative) Urine Nitrite (Negative) Urine Bilirubin (Negative) Urine Urobilinogen (Normal) mg/dL Ur Leukocyte Esterase (Negative) Salicylates < 2.5 L (15.0-30.0) mg/dL Urine Opiates Screen (Jfymfx=754) ng/mL Acetaminophen < 10 L (10-20) mcg/mL Ur Barbiturates Screen (Ygmguc=953) ng/mL Ur Phencyclidine Scrn (Cutoff=25) ng/mL Ur Amphetamines Screen (Vzpuht=1156) ng/mL U Benzodiazepines Scrn (Synjhe=695) ng/mL Urine Cocaine Screen (Cutoff= 300) ng/mL U Marijuana (THC) Screen (Cutoff = 50) ng/mL Ethyl Alcohol 273 H (Less than 10) mg/dL Attestation Statement - Attestation Attestation: I, Michele Ku MD, personally evaluated this patient and discussed their management with the midlevel provicer, PAC/REPEATER CHIEF. I reviewed the midlevel provider 's note and agree with the documented findings, medical decision making, and plan of care. 43-year-old male with history of alcoholism presents to the emergency department intoxicated requesting help for his alcoholism. Patient was just recently admitted here a few days ago for the same problem. He states that ever since he was discharged he went straight home and started back drinking and has been drinking for the past 3 days constantly. On examination patient is a well-developed well-nourished male in no acute distress. He is alert and oriented 3. There is no cyanosis or diaphoresis. He does appear intoxicated. Breath sounds are clear and equal bilaterally. Heart regular with a mild tachycardia. Abdomen soft and nontender with normal bowel sounds. Labs reviewed. The hospitalist, Dr. Clarke, was consulted and accepted admission of the patient.
[2018-03-18] MEDS ORDERED: *HR* Promethazine 25 MG/ML VIAL IM ONE (05:52)
[2018-03-18] MEDS: 0.9 % Sodium Chloride 1,000 ML IVC SCH ×3 (06:10→23:10)
[2018-03-18] MEDS ORDERED: hydrOXYzine pamoate 25 MG CAPSULE PO PRN (07:25)
[2018-03-18] MEDS ORDERED: Ondansetron 4 MG/2 ML VIAL IVP PRN (07:30)
[2018-03-18] MEDS ORDERED: Naloxone 0.4 MG/ML INJ IVP PRN (07:32)
[2018-03-18] MEDS ORDERED: Acetaminophen 325 MG TABLET PO PRN (07:32)
--- NOTE | 2018-03-18 07:46 | Internal Med History&Physical ---
<Tere Garcia - Last Filed: 03/18/18 11:23> Date of Encounter: 03/18/18 Internal Medicine - H&P: HPI History of present illness: Mr. St is a 43 year old male Internal Medicine - H&P: Meds Lisinopril-HCTZ 20-12.5 [Prinzide 20-12.5] 1 tab PO DAILY 03/14/18 [History] Meloxicam 15 mg PO DAILY 03/14/18 [History] Omeprazole [PriLOSEC] 20 mg PO DAILY 03/14/18 [History] hydrOXYzine pamoate [HydrOXYzine Pamoate] 50 mg PO QID PRN 03/14/18 [History] 3 Allergy/AdvReac Type Severity Reaction Status Date / Time No Known Allergies Allergy Verified 03/18/18 09:32 All Systems PM: A 10-system review of systems was performed and is negative for pertinent findings except as documented above in the HPI. - Constitutional Vitals: Temp Pulse Resp BP Pulse Ox 97.5 F L 101 18 140/98 98 03/18/18 06:47 03/18/18 06:47 03/18/18 06:47 03/18/18 06:47 03/18/18 06:47 Internal Med - H&P Results - Labs CBC & Chem 7: 03/18/18 02:53 03/18/18 02:53 - Attending Attestation Patient examined. Review of the note and agreed with plan of care. Patient has been in inpatient rehabilitation for substance abuse facility and got discharged couple of months ago but patient really started to drink. Patient also complained of anxiety and depression but does not take any medication. He also does not have a PCP. At present he denies homicidal or suicidal thoughts or plan. Patient had history of DTs in the past. Patient is willing to get inpatient rehabilitation for substance abuse. bilingual patient support caseworker was consulted in the ER. I also talked to on-call psychiatrist for the evaluation of psych disorder. Continue serial protocol and banana bag. - Assessment and plan (1) Alcohol withdrawal Current Visit: Yes Status: Acute Qualifiers: Complication of substance-induced condition: uncomplicated Qualified Code(s ): F10.230 - Alcohol dependence with withdrawal, uncomplicated (2) Alcoholic intoxication Current Visit: Yes Status: Acute Qualifiers: Complication of substance-induced condition: with unspecified complication Qualified Code(s): F10.929 - Alcohol use, unspecified with intoxication, unspecified (3) Hypertension Current Visit: No Status: Chronic Qualifiers: Hypertension type: essential hypertension Qualified Code(s): I10 - Essential (primary) hypertension (4) Hepatitis Current Visit: Yes Status: Acute - Time Spent With Patient Total time spent is greater than 50% in coordination of care (as documented) at patient's floor/unit and/or counseling patient: <Ayleen Vance - Last Filed: 03/18/18 12:27> Date of Encounter: 03/18/18 Time of Encounter: 07:44 Internal Medicine - H&P: HPI Admitted From: Home Plans for Post Hospital Care: Home History of present illness: 43-year-old male with a history of alcoholism presents emergency department tonight via EMS for alcohol intoxication. Patient states that since he left here 3 days ago he has done nothing but drink heavily since he was unable to get into a rehabilitation center. He states at no point in the last 3 days has he been sober. He did state that he was having withdrawal symptoms while he was here and was requiring medication which did help him drink less once he left here but once it wore off he was able to drink more more. He states he drinks from the time he gets up until the time he goes to bed. He states he came back because he knows that he will if he does not do something about his alcoholism. When asked the patient was suicidal he stated no. Patient states to continue drinking binge was because of the tremors, nausea, vomiting when he is not drinking. He states when he wakes up after sleeping he feels we will therefore he just starts drinking again he continues to drink until he goes to bed to avoid those feelings. He does deny auditory him his usual hallucinations Patient was admitted here 03/13/18 for alcohol intoxication asking for help with AA or rehabilitation center. Patient that was social work as well as nursing staff, hospitalist here and was given a plethora of information regarding programs present patient and out. [facility] not able to do to a service connection. At the ED, his vital signs were stable. Labs revealed hypokalemia. Due to his severe withdrawal symptoms, he will be admitted and will be placed on Librium tapering dose for severe alcohol withdrawal/addiction. Past Med Surg Social Fam HX - Past Medical History Medical history: hypertension Psychiatric history: anxiety, depression - Past Surgical History Surgical History: appendectomy, other - Social History Smoking Status: Current every day smoker Packs per day: 0.5 Smokeless Tobacco Status: No Alcohol use: heavy, recent Drug use: none - Family History Maternal Grandmother Living Status: Still Living Hx Family Cardiac Disorders: Yes Hx Family Respiratory Disorders: No Hx Family Cancer: No Hx Family GI Disorders: Yes Hx Family Endocrine Disorder: No Hx Family Neurologic Disorders: Yes All Systems PM: A 10-system review of systems was performed and is negative for pertinent findings except as documented above in the HPI. Review of systems: REVIEW OF SYSTEMS: CONSTITUTIONAL: No weight loss, fever, chills, weakness or fatigue. HEENT: Eyes: No visual loss, blurred vision, double vision or yellow sclerae. Ears, Nose, Throat: No hearing loss, sneezing, congestion, runny nose or sore throat. SKIN: No rash or itching. CARDIOVASCULAR: No chest pain, chest pressure or chest discomfort. No palpitations or edema. RESPIRATORY: No shortness of breath, cough or sputum. GASTROINTESTINAL: see HPI. GENITOURINARY: No dysuria, urgency, or frequency. NEUROLOGICAL: see HPI. MUSCULOSKELETAL: No muscle, back pain, joint pain or stiffness. HEMATOLOGIC: No anemia, bleeding or bruising. LYMPHATICS: No enlarged nodes. No history of splenectomy. PSYCHIATRIC: No history of depression or anxiety. ENDOCRINOLOGIC: No reports of sweating, cold or heat intolerance. No polyuria or polydipsia. - Constitutional Vitals: Temp Pulse Resp BP Pulse Ox 97.5 F L 101 18 140/98 98 03/18/18 06:47 03/18/18 06:47 03/18/18 06:47 03/18/18 06:47 03/18/18 06:47 General appearance: Present: A&O X 3 Exam: PHYSICAL EXAMINATION: GENERAL APPEARANCE: The patient is alert, oriented and in no acute distress. HEENT: Head is normocephalic. The sinuses are nontender. Pupils are equal and reactive. The nares are patent. Oropharynx clear without lesions. NECK: Supple without lymphadenopathy. HEART: Regular rate and rhythm. LUNGS: No crackles or wheezes are heard. ABDOMEN: Soft, nontender, nondistended with good bowel sounds heard. Inguinal area is normal. EXTREMITIES: Without cyanosis, clubbing or edema. NEUROLOGICAL: Gross nonfocal. SKIN: Warm and dry without any rash. Internal Med - H&P Results - Labs CBC & Chem 7: 03/18/18 02:53 03/18/18 02:53 - Assessment and plan (1) Alcohol withdrawal Current Visit: Yes Status: Acute Assessment and plan: 43-year-old male with past medical history of alcohol abuse presented with severe alcohol intoxication. - he was admitted last week for the similar symptoms, was treated and released. He recently lost his job and underwent a lot of stress. - We will put him on Librium tapering dose: 50 mg 3 times a day on day 1, 50 mg 2 times a day on day 2, and 5o mg once a day on days 3. - CIWA with Ativan when necessary, replace thiamine and folate, replace potassium. - Symptomatic/supportive care with as needed medications. Qualifiers: Complication of substance-induced condition: uncomplicated Qualified Code(s ): F10.230 - Alcohol dependence with withdrawal, uncomplicated (2) Alcoholic intoxication Current Visit: Yes Status: Acute Assessment and plan: - same as above. Qualifiers: Complication of substance-induced condition: with unspecified complication Qualified Code(s): F10.929 - Alcohol use, unspecified with intoxication, unspecified (3) Hypertension Current Visit: No Status: Chronic Assessment and plan: - BP currently well controlled, continue home medication. Qualifiers: Hypertension type: essential hypertension Qualified Code(s): I10 - Essential (primary) hypertension (4) Hepatitis Current Visit: Yes Status: Acute Assessment and plan: - Most likely alcohol related hepatitis, monitoring. - Time Spent With Patient Total time spent is greater than 50% in coordination of care (as documented) at patient's floor/unit and/or counseling patient: Greater than 35 minutes
[2018-03-18 09:28] LABS: Magnesium 2.2 mg/dL (1.6-2.6)
[2018-03-18] MEDS: Folic Acid 1 MG TABLET PO SCH (09:30)
[2018-03-18] MEDS: Thiamine (B-1) 100 MG TABLET PO SCH (09:31)
[2018-03-18] MEDS: Lisinopril-HCTZ 20-12.5mg TABLET PO SCH (09:31)
[2018-03-18] MEDS: *HR* LORazepam 2 MG/ML VIAL IVP PRN ×5 (11:10→23:08)
[2018-03-18] MEDS: traMADol 50 MG TABLET PO PRN (18:04)
[2018-03-19] MEDS: traMADol 50 MG TABLET PO PRN ×2 (00:45→22:45)
[2018-03-19 01:10] LABS: Basophils % 0.5 %; Eosinophils # 0.3 K/mcL (0.0-0.6); Eosinophils % 3.5 %; Hematocrit 37.1 % (37.5-50.1); Immature Granulocytes % 0.3 % (0-4); Lymphocytes # 2.1 K/mcL (0.6-4.6); Mean Corpuscular HGB Conc 34.5 g/dL (31.6-35.5); Mean Corpuscular Hemoglobin 32.7 pg (28.0-33.3); Mean Corpuscular Volume 94.9 fL (83.0-100.0); Mean Platelet Volume 9.4 fL (9.4-12.4); Monocytes # 0.5 K/mcL (0.0-1.3); Monocytes % 6.6 %; Neutrophils # 4.5 K/mcL (1.6-8.9); Platelet Count 136 K/mcL (140-400); Red Blood Count 3.91 M/mcL (4.19-5.50); Red Cell Distribution Width 12.5 % (11.5-14.5); Segmented Neutrophils % 61.1 %
[2018-03-19 01:14] LABS: Hemoglobin 12.8 g/dL (12.9-16.9)
[2018-03-19 01:35] LABS: Alanine Aminotransferase 47 Units/L (7-52); Albumin 3.8 g/dL (3.5-5.7); Albumin/Globulin Ratio 1.9 (1.1-2.2); Alkaline Phosphatase 70 Units/L (34-104); Aspartate Amino Transferase 38 Units/L (13-39); BUN/Creatinine Ratio 15 (6-26); Bilirubin,Total 0.5 mg/dL (0.3-1.0); Blood Urea Nitrogen 16 mg/dL (6-20); Calcium 8.5 mg/dL (8.6-10.3); Carbon Dioxide 22 mEq/L (23-29); Chloride 108 mEq/L (98-107); Glucose 139 mg/dL (70-105); Osmolality,Calculated 291 (280-300); Potassium 3.7 mEq/L (3.5-5.1); Sodium 139 mEq/L (136-145); Total Protein 5.8 g/dL (6.4-8.9); eGFR For African Americans > 60 (> 60); eGFR For Non-African Americans > 60 (> 60)
[2018-03-19] MEDS: 0.9 % Sodium Chloride 1,000 ML IVC SCH ×2 (07:03→16:55)
[2018-03-19] MEDS: Nicotine 7 MG PATCH.TD24 TD SCH (09:29)
[2018-03-19] MEDS: Folic Acid 1 MG TABLET PO SCH (09:29)
[2018-03-19] MEDS: Thiamine (B-1) 100 MG TABLET PO SCH (09:29)
[2018-03-19] MEDS: Lisinopril-HCTZ 20-12.5mg TABLET PO SCH (09:29)
[2018-03-19] MEDS: *HR* LORazepam 2 MG/ML VIAL IVP PRN ×4 (12:24→21:09)
[2018-03-19] MEDS ORDERED: *HR* LORazepam 2 MG/ML VIAL IVP PRN (14:19)
--- NOTE | 2018-03-19 16:03 | Consult Note ---
Date of Encounter: 03/19/18 Time of Encounter: 13:40 Assessment & Recommendation (1) Major depressive disorder, single episode, unspecified Current visit: Yes Status: Acute Assessment & Recommendation: START LEXAPRO 10 MG AM Qualifiers: Active/Remission status: currently active Major depression episode severity : mild Qualified Code(s): F32.0 - Major depressive disorder, single episode, mild (2) Alcohol withdrawal Current visit: Yes Status: Acute Qualifiers: Complication of substance-induced condition: uncomplicated Qualified Code(s ): F10.230 - Alcohol dependence with withdrawal, uncomplicated (3) Alcohol dependence Current visit: Yes Status: Acute Qualifiers: Substance use status: in withdrawal Complication of substance-induced condition: uncomplicated Qualified Code(s): F10.230 - Alcohol dependence with withdrawal, uncomplicated History of Present Illness Patient: new to practice Requesting Physician: Noemí Clarke MD Reason for consult: alcohol use disorder History of present illness: Mr. St is a 43 year old male was consulted today for history of alcoholism . Mr. St was evaluated today at his bed side , he was cooperative , somewhat anxious and shaky, as per notes patient has h/o DT. He is good historian , as per him has been drinking daily since August and drinks high alcohol content drinks, states tried on his own but does not work , he was in inpatient rehab last year and has soberity of 7 months. He lives by himself , unemployed , lost his job secondary to absence as would drink and miss his work,states lost a lot because of drinking, he was making good money now zero , he let his family down, job and has been depress and has anxiety , he is guilty and at times loses hope but no suicidal or homicidal ideation and wants help. he denies any psychosis , juan or any other drugs. he does smoke 6-7 cig. per day. AT present depress, tearful at times in session, feels sad , unhappy . Past psych denies any except ALcohol treatment. Social , lives alone, unemployed and has DWI x2 in past , no legal at present. Family h/o: maternal Grand Father and Uncle Alcoholism. A/P aLCOHOL INTOXICATION and Withdrawal Stabilization Depressive Disorder NOS Anxiety Disorder NOS. REC : Continue withdrawal stabilization Please start Lexapro 10 mg am Patient will need inpatient rehab and he agrees to do that. Patient not in imenent danger to self/others at present Thankk you for consulting and involving in his care. pLEASE CALL PRN . CC: Noemí Clarke MD Past Med Surg Social Fam HX - Past Medical History Medical history: hypertension - Past Psychiatric History Psychiatric history: Reports: no psych history Family psychiatric history: No Family History of Suicide: None - Past Surgical History Surgical History: appendectomy, other - Social History Smoking Status: Current every day smoker Smokeless Tobacco Status: No Alcohol use: heavy, recent Drug use: none - Family History Maternal Grandmother Living Status: Still Living Hx Family Cardiac Disorders: Yes Hx Family Respiratory Disorders: No Hx Family Cancer: No Hx Family GI Disorders: Yes Hx Family Endocrine Disorder: No Hx Family Neurologic Disorders: Yes Medications & Allergies Lisinopril-HCTZ 20-12.5 [Prinzide 20-12.5] 1 tab PO DAILY 03/14/18 [History] Meloxicam 15 mg PO DAILY 03/14/18 [History] Omeprazole [PriLOSEC] 20 mg PO DAILY 03/14/18 [History] hydrOXYzine pamoate [HydrOXYzine Pamoate] 50 mg PO QID PRN 03/14/18 [History] 3 Allergy/AdvReac Type Severity Reaction Status Date / Time No Known Allergies Allergy Verified 03/18/18 09:32 Review of Systems Psychiatric: Reports: depression, anxiety Psychiatry Exam - Constitutional Vitals: Temp Pulse Resp BP Pulse Ox 97.9 F 81 16 147/98 98 03/19/18 15:41 03/19/18 15:41 03/19/18 15:41 03/19/18 15:41 03/19/18 15:41 General appearance: age & developmentally appropriate, well-groomed, well- nourished - Musculoskeletal Station: relaxed Strength & Tone: normal for patient - Psychiatric Patient Orientation: Yes Person, Yes Time, Yes Place Level of alertness: Alert Behavior: cooperative, nervous, anxious Psychomotor activity: Normal Eye Contact: Maintains Eye Contact Mood Description: Depressed, Anxious Affect description: tearful, dysphoric Speech Volume: Normal Speech pattern: normal rate, normal rhythm, normal tone, fluent, spontaneous Language & Vocabulary: consistent with education Thought Process: Linear, Goal Oriented Thought Content: No Suicidal ideation, No Homicidal ideation, No Overt delusions Perceptual Disturbances: No Auditory hallucinations, No Visual hallucinations Attention Span Ability: Capable of Focused Attention Memory Description: Grossly Intact Patient Reliability: Reliable Historian Fund of knowledge: Yes abstraction ability, Yes aware of current events Intelligence Estimate: Average Judgment: Fair Insight: Partial Results - Labs Labs: Laboratory Last Values WBC 7.4 K/mcL (4.3-11.1) 03/19/18 00:52 RBC 3.91 M/mcL (4.19-5.50) L 03/19/18 00:52 Hgb 12.8 g/dL (12.9-16.9) L D 03/19/18 00:52 Hct 37.1 % (37.5-50.1) L 03/19/18 00:52 MCV 94.9 fL (83.0-100.0) 03/19/18 00:52 MCH 32.7 pg (28.0-33.3) 03/19/18 00:52 MCHC 34.5 g/dL (31.6-35.5) 03/19/18 00:52 RDW 12.5 % (11.5-14.5) 03/19/18 00:52 Plt Count 136 K/mcL (140-400) L 03/19/18 00:52 MPV 9.4 fL (9.4-12.4) 03/19/18 00:52 Immature Gran % 0.3 % (0-4) 03/19/18 00:52 Seg Neutrophils % 61.1 % 03/19/18 00:52 Lymphocytes % 28.0 % 03/19/18 00:52 Monocytes % 6.6 % 03/19/18 00:52 Eosinophils % 3.5 % 03/19/18 00:52 Basophils % 0.5 % 03/19/18 00:52 Neutrophils # 4.5 K/mcL (1.6-8.9) 03/19/18 00:52 Lymphocytes # 2.1 K/mcL (0.6-4.6) 03/19/18 00:52 Monocytes # 0.5 K/mcL (0.0-1.3) 03/19/18 00:52 Eosinophils # 0.3 K/mcL (0.0-0.6) 03/19/18 00:52 Basophils # 0.0 K/mcL (0.0-0.2) 03/19/18 00:52 Sodium 139 mEq/L (136-145) 03/19/18 00:52 Potassium 3.7 mEq/L (3.5-5.1) 03/19/18 00:52 Chloride 108 mEq/L (98-107) H 03/19/18 00:52 Carbon Dioxide 22 mEq/L (23-29) L 03/19/18 00:52 BUN 16 mg/dL (6-20) 03/19/18 00:52 Creatinine 1.08 mg/dL (0.70-1.30) 03/19/18 00:52 Est GFR ( Amer) > 60 (> 60) 03/19/18 00:52 Est GFR (Non-Af Amer) > 60 (> 60) 03/19/18 00:52 BUN/Creatinine Ratio 15 (6-26) 03/19/18 00:52 Glucose 139 mg/dL (70-105) H 03/19/18 00:52 POC Glucose 122 mg/dL (70-99) H 03/18/18 05:18 Calculated Osmolality 291 (280-300) 03/19/18 00:52 Calcium 8.5 mg/dL (8.6-10.3) L 03/19/18 00:52 Magnesium 2.2 mg/dL (1.6-2.6) 03/18/18 02:53 Total Bilirubin 0.5 mg/dL (0.3-1.0) 03/19/18 00:52 Direct Bilirubin 0.2 mg/dL (0.0-0.2) 03/18/18 02:53 Indirect Bilirubin 0.4 mg/dL (0.0-1.2) 03/18/18 02:53 AST 38 Units/L (13-39) 03/19/18 00:52 ALT 47 Units/L (7-52) 03/19/18 00:52 Alkaline Phosphatase 70 Units/L (34-104) 03/19/18 00:52 Serum Total Protein 5.8 g/dL (6.4-8.9) L 03/19/18 00:52 Albumin 3.8 g/dL (3.5-5.7) 03/19/18 00:52 Globulin 2.0 g/dL (2.4-3.5) L 03/19/18 00:52 Albumin/Globulin Ratio 1.9 (1.1-2.2) 03/19/18 00:52 Urine Color Yellow (Yellow) 03/18/18 02:28 Urine Clarity Clear (Clear) 03/18/18 02:28 Urine pH 6.5 pH Units (5.0-8.0) 03/18/18 02:28 Ur Specific [place] 1.010 (1.010-1.025) 03/18/18 02:28 Urine Protein Negative mg/dL (Neg-Trace) 03/18/18 02:28 Urine Glucose (UA) Normal mg/dL (Normal) 03/18/18 02:28 Urine Ketones Negative mg/dL (Negative) 03/18/18 02:28 Urine Blood Negative (Negative) 03/18/18 02:28 Urine Nitrite Negative (Negative) 03/18/18 02:28 Urine Bilirubin Negative (Negative) 03/18/18 02:28 Urine Urobilinogen Normal mg/dL (Normal) 03/18/18 02:28 Ur Leukocyte Esterase Negative (Negative) 03/18/18 02:28 Salicylates < 2.5 mg/dL (15.0-30.0) L 03/18/18 02:53 Urine Opiates Screen Negative ng/mL (Eidkxa=824) 03/18/18 02:28 Acetaminophen < 10 mcg/mL (10-20) L 03/18/18 02:53 Ur Barbiturates Screen Negative ng/mL (Gbeiae=618) 03/18/18 02:28 Ur Phencyclidine Scrn Negative ng/mL (Cutoff=25) 03/18/18 02:28 Ur Amphetamines Screen Negative ng/mL (Ompebl=5695) 03/18/18 02:28 U Benzodiazepines Scrn Positive ng/mL (Rgzazr=255) H 03/18/18 02:28 Urine Cocaine Screen Negative ng/mL (Cutoff= 300) 03/18/18 02:28 U Marijuana (THC) Screen Negative ng/mL (Cutoff = 50) 03/18/18 02:28 Ethyl Alcohol 273 mg/dL (Less than 10) H 03/18/18 02:53 Consult Discharge Plan - Plan Referrals: NONE,PCP [Primary Care Provider] -
--- NOTE | 2018-03-19 19:01 | Internal Med Progress Note ---
Date of Encounter: 03/19/18 Time of Encounter: 13:58 - Assessment and plan (1) Alcohol withdrawal Current Visit: Yes Status: Acute Assessment and plan: 43-year-old male with past medical history of alcohol abuse presented with severe alcohol intoxication. - he was admitted last week for the similar symptoms, was treated and released. He recently lost his job and underwent a lot of stress. - Continue Librium tapering dose: 50 mg 3 times a day on day 1, 50 mg 2 times a day on day 2, and 5o mg once a day on days 3. - CIWA with Ativan when necessary, replace thiamine and folate, replace potassium. - Symptomatic/supportive care with as needed medications. Ativan needed more frequently today, monitor for progression. - Psychiatry eval pending. Qualifiers: Complication of substance-induced condition: uncomplicated Qualified Code(s ): F10.230 - Alcohol dependence with withdrawal, uncomplicated (2) Alcoholic intoxication Current Visit: Yes Status: Deleted Assessment and plan: Continue treatment as above. Stop IV fluids now. Qualifiers: Complication of substance-induced condition: uncomplicated Qualified Code(s ): F10.920 - Alcohol use, unspecified with intoxication, uncomplicated (3) Hypertension Current Visit: No Status: Chronic Assessment and plan: - BP currently well controlled, continue home medication. Qualifiers: Hypertension type: essential hypertension Qualified Code(s): I10 - Essential (primary) hypertension (4) Hepatitis Current Visit: Yes Status: Acute Assessment and plan: - Most likely alcohol related hepatitis, monitoring. - Time Spent With Patient Total time spent is greater than 50% in coordination of care (as documented) at patient's floor/unit and/or counseling patient: - Subjective Interval history: Patient still feels jittery but feeling better. Complains of being depressed. CIWA scores reported by nursing around 12-13 - Constitutional Vitals: Temp Pulse Resp BP Pulse Ox 97.9 F 81 16 147/98 98 03/19/18 15:41 03/19/18 15:41 03/19/18 15:41 03/19/18 15:41 03/19/18 15:41 General appearance: Present: A&O X 3 - Head Head exam: Present: atraumatic, normocephalic - Eye Eye exam: Present: PERRL, conjuntiva pink, sclera anicteric Pupils: Present: PERRL - Neck Neck exam general surgery: Present: supple, trachea midline. Absent: lymphadenopathy - Respiratory Respiratory exam: Present: CTAB. Absent: accessory muscle use, rales, rhonchi, wheezes - Cardiovascular Cardiovascular exam: Present: RRR, +S1, +S2. Absent: diastolic murmur, gallop, rubs, systolic murmur - GI/Abdominal GI/Abdominal exam: Present: normal bowel sounds, soft, no peritoneal signs. Absent: distended, tenderness - Extremities Exam Extremities exam: Present: warm, radial pulses palpable and symmetrical. Absent : calf tenderness, cyanotic, pedal edema - Neurological Exam Neurological exam: Present: CN II-XII intact, oriented X3, no focal deficits. Absent: pronater drift, facial droop, speech deficit - Psychiatric Psychiatric exam: Present: anxious - Skin Skin exam: Present: dry, intact Internal Medicine: Result - Labs CBC & Chem 7: 03/19/18 00:52 03/19/18 00:52 Labs: Short CBC 03/19/18 Range/Units 00:52 WBC 7.4 (4.3-11.1) K/mcL Hgb 12.8 L D (12.9-16.9) g/dL Hct 37.1 L (37.5-50.1) % Plt Count 136 L (140-400) K/mcL Neutrophils # 4.5 (1.6-8.9) K/mcL BMP 03/19/18 00:52 Sodium 139 Potassium 3.7 Chloride 108 H Carbon Dioxide 22 L BUN 16 Creatinine 1.08 Glucose 139 H Calcium 8.5 L Liver Function 03/19/18 Range/Units 00:52 Total Bilirubin 0.5 (0.3-1.0) mg/dL AST 38 (13-39) Units/L ALT 47 (7-52) Units/L Alkaline Phosphatase 70 (34-104) Units/L Albumin 3.8 (3.5-5.7) g/dL Consult Discharge Plan - Plan Referrals: NONE,PCP [Primary Care Provider] -
[2018-03-20 01:39] LABS: Basophils % 0.4 %; Eosinophils # 0.2 K/mcL (0.0-0.6); Eosinophils % 2.3 %; Hematocrit 35.6 % (37.5-50.1); Hemoglobin 12.5 g/dL (12.9-16.9); Immature Granulocytes % 0.1 % (0-4); Lymphocytes # 1.7 K/mcL (0.6-4.6); Lymphocytes % 24.6 %; Mean Corpuscular HGB Conc 35.1 g/dL (31.6-35.5); Mean Corpuscular Hemoglobin 32.4 pg (28.0-33.3); Mean Corpuscular Volume 92.2 fL (83.0-100.0); Mean Platelet Volume 9.5 fL (9.4-12.4); Monocytes # 0.5 K/mcL (0.0-1.3); Monocytes % 7.4 %; Neutrophils # 4.6 K/mcL (1.6-8.9); Platelet Count 140 K/mcL (140-400); Red Blood Count 3.86 M/mcL (4.19-5.50); Red Cell Distribution Width 12.1 % (11.5-14.5); Segmented Neutrophils % 65.2 %
[2018-03-20 02:00] LABS: BUN/Creatinine Ratio 11 (6-26); Blood Urea Nitrogen 13 mg/dL (6-20); Calcium 8.9 mg/dL (8.6-10.3); Carbon Dioxide 24 mEq/L (23-29); Chloride 107 mEq/L (98-107); Glucose 113 mg/dL (70-105); Osmolality,Calculated 287 (280-300); Potassium 3.5 mEq/L (3.5-5.1); Sodium 138 mEq/L (136-145); eGFR For African Americans > 60 (> 60); eGFR For Non-African Americans > 60 (> 60)
[2018-03-20] MEDS: *HR* LORazepam 2 MG/ML VIAL IVP PRN ×8 (02:55→20:36)
[2018-03-20] MEDS: Nicotine 7 MG PATCH.TD24 TD SCH (07:49)
[2018-03-20] MEDS: Thiamine (B-1) 100 MG TABLET PO SCH (07:49)
[2018-03-20] MEDS: Folic Acid 1 MG TABLET PO SCH (07:49)
[2018-03-20] MEDS: Lisinopril-HCTZ 20-12.5mg TABLET PO SCH (07:49)
[2018-03-20] MEDS: 0.9 % Sodium Chloride 1,000 ML IVC SCH (12:36)
[2018-03-20] MEDS: OXcarbazepine 150 MG TABLET PO SCH ×2 (13:25→20:30)
--- NOTE | 2018-03-20 13:37 | Consult Note ---
Date of Encounter: 03/20/18 Time of Encounter: 12:30 Assessment & Recommendation (1) Major depressive disorder, single episode, unspecified Current visit: Yes Status: Acute Assessment & Recommendation: escitalopram started for depression trileptal 150 mg bid started for mood and anxiety . Qualifiers: Active/Remission status: currently active Major depression episode severity : mild Qualified Code(s): F32.0 - Major depressive disorder, single episode, mild (2) Alcohol withdrawal Current visit: Yes Status: Acute Qualifiers: Complication of substance-induced condition: uncomplicated Qualified Code(s ): F10.230 - Alcohol dependence with withdrawal, uncomplicated (3) Alcohol dependence Current visit: Yes Status: Acute Qualifiers: Substance use status: in withdrawal Complication of substance-induced condition: uncomplicated Qualified Code(s): F10.230 - Alcohol dependence with withdrawal, uncomplicated History of Present Illness Patient: new to practice Requesting Physician: Noemí Clarke MD Reason for consult: alcohol withdrawl /depression History of present illness: Mr. St is a 43 year old male was followed today. He states feeling not good today , anxious, restless and feels shaky from inside , moods are not good. he wants to go to inpatient rehab after withdrawal stabilization. he denies si/hi moods up and down , sad, and depress. REC: it was recommended yesterday to start escitalopram , which I started today and added trileptal 150 mg bid for moods and he has h/o DT . AT present he is not in danger to self/others,has good insight. Needs manager social work for inpatient rehab once medically stable. Thank you for consult please call if needed. CC: Noemí Clarke MD Past Med Surg Social Fam HX - Past Medical History Medical history: hypertension - Past Psychiatric History Psychiatric history: Reports: no psych history Family psychiatric history: No Family History of Suicide: None - Past Surgical History Surgical History: appendectomy, other - Social History Smoking Status: Current every day smoker Smokeless Tobacco Status: No Alcohol use: heavy, recent Drug use: none - Family History Maternal Grandmother Living Status: Still Living Hx Family Cardiac Disorders: Yes Hx Family Respiratory Disorders: No Hx Family Cancer: No Hx Family GI Disorders: Yes Hx Family Endocrine Disorder: No Hx Family Neurologic Disorders: Yes Medications & Allergies RX: Lisinopril-HCTZ -.5 [Prinzide 20-12.5] 1 tab PO DAILY 03/14/18 [History] RX: Meloxicam 15 mg PO DAILY 03/14/18 [History] RX: Omeprazole [PriLOSEC] 20 mg PO DAILY 03/14/18 [History] RX: hydrOXYzine pamoate [HydrOXYzine Pamoate] 50 mg PO QID PRN 03/14/18 [History ] 3 Allergy/AdvReac Type Severity Reaction Status Date / Time No Known Allergies Allergy Verified 03/18/18 09:32 Review of Systems Psychiatric: Reports: depression, anxiety Psychiatry Exam - Constitutional Vitals: Temp Pulse Resp BP Pulse Ox 97.8 F 77 18 156/111 97 03/20/18 12:02 03/20/18 12:02 03/20/18 12:02 03/20/18 12:02 03/20/18 12:02 General appearance: age & developmentally appropriate - Musculoskeletal Station: other Strength & Tone: normal for patient - Psychiatric Patient Orientation: Yes Person Level of alertness: Alert Behavior: cooperative, anxious Psychomotor activity: Normal Eye Contact: Maintains Eye Contact Mood Description: Depressed, Anxious Affect description: congruent with mood, full range Speech Volume: Normal Speech pattern: normal rate, normal rhythm, normal tone, fluent, spontaneous Language & Vocabulary: consistent with education Thought Process: Linear, Goal Oriented Thought Content: No Suicidal ideation, No Homicidal ideation, No Overt delusions Perceptual Disturbances: No Auditory hallucinations, No Visual hallucinations Attention Span Ability: Capable of Focused Attention Memory Description: Grossly Intact Patient Reliability: Reliable Historian Fund of knowledge: Yes abstraction ability, Yes aware of current events Intelligence Estimate: Average Judgment: Limited Insight: Full Results - Labs Labs: Laboratory Last Values WBC 7.0 K/mcL (4.3-11.1) 03/20/18 01:27 RBC 3.86 M/mcL (4.19-5.50) L 03/20/18 01:27 Hgb 12.5 g/dL (12.9-16.9) L 03/20/18 01:27 Hct 35.6 % (37.5-50.1) L 03/20/18 01:27 MCV 92.2 fL (83.0-100.0) 03/20/18 01:27 MCH 32.4 pg (28.0-33.3) 03/20/18 01: MCHC 35.1 g/dL (31.6-35.5) 03/20/18 01:27 RDW 12.1 % (11.5-14.5) 03/20/18 01:27 Plt Count 140 K/mcL (140-400) 03/20/18 01:27 MPV 9.5 fL (9.4-12.4) 03/20/18 01:27 Immature Gran % 0.1 % (0-4) 03/20/18 01:27 Seg Neutrophils % 65.2 % 03/20/18 01:27 Lymphocytes % 24.6 % 03/20/18 01:27 Monocytes % 7.4 % 03/20/18 01: Eosinophils % 2.3 % 03/20/18 01: Basophils % 0.4 % 03/20/18 01:27 Neutrophils # 4.6 K/mcL (1.6-8.9) 03/20/18 01:27 Lymphocytes # 1.7 K/mcL (0.6-4.6) 03/20/18 01:27 Monocytes # 0.5 K/mcL (0.0-1.3) 03/20/18 01:27 Eosinophils # 0.2 K/mcL (0.0-0.6) 03/20/18 01:27 Basophils # 0.0 K/mcL (0.0-0.2) 03/20/18 01:27 Sodium 138 mEq/L (136-145) 03/20/18 01:27 Potassium 3.5 mEq/L (3.5-5.1) 03/20/18 01:27 Chloride 107 mEq/L (98-107) 03/20/18 01:27 Carbon Dioxide 24 mEq/L (23-29) 03/20/18 01:27 BUN 13 mg/dL (6-20) 03/20/18 01:27 Creatinine 1.22 mg/dL (0.70-1.30) 03/20/18 01:27 Est GFR ( Amer) > 60 (> 60) 03/20/18 01:27 Est GFR (Non-Af Amer) > 60 (> 60) 03/20/18 01:27 BUN/Creatinine Ratio 11 (6-26) 03/20/18 01:27 Glucose 113 mg/dL (70-105) H 03/20/18 01:27 POC Glucose 122 mg/dL (70-99) H 03/18/18 05:18 Calculated Osmolality 287 (280-300) 03/20/18 01:27 Calcium 8.9 mg/dL (8.6-10.3) 03/20/18 01:27 Magnesium 2.2 mg/dL (1.6-2.6) 03/18/18 02:53 Total Bilirubin 0.5 mg/dL (0.3-1.0) 03/19/18 00:52 Direct Bilirubin 0.2 mg/dL (0.0-0.2) 03/18/18 02:53 Indirect Bilirubin 0.4 mg/dL (0.0-1.2) 03/18/18 02:53 AST 38 Units/L (13-39) 03/19/18 00:52 ALT 47 Units/L (7-52) 03/19/18 00:52 Alkaline Phosphatase 70 Units/L (34-104) 03/19/18 00:52 Serum Total Protein 5.8 g/dL (6.4-8.9) L 03/19/18 00:52 Albumin 3.8 g/dL (3.5-5.7) 03/19/18 00:52 Globulin 2.0 g/dL (2.4-3.5) L 03/19/18 00:52 Albumin/Globulin Ratio 1.9 (1.1-2.2) 03/19/18 00:52 Urine Color Yellow (Yellow) 03/18/18 02:28 Urine Clarity Clear (Clear) 03/18/18 02:28 Urine pH 6.5 pH Units (5.0-8.0) 03/18/18 02:28 Ur Specific [place] 1.010 (1.010-1.025) 03/18/18 02:28 Urine Protein Negative mg/dL (Neg-Trace) 03/18/18 02:28 Urine Glucose (UA) Normal mg/dL (Normal) 03/18/18 02:28 Urine Ketones Negative mg/dL (Negative) 03/18/18 02:28 Urine Blood Negative (Negative) 03/18/18 02:28 Urine Nitrite Negative (Negative) 03/18/18 02:28 Urine Bilirubin Negative (Negative) 04/26/18 02:28 Urine Urobilinogen Normal mg/dL (Normal) 03/18/18 02:28 Ur Leukocyte Esterase Negative (Negative) 03/18/18 02:28 Salicylates < 2.5 mg/dL (15.0-30.0) L 03/18/18 02:53 Urine Opiates Screen Negative ng/mL (Fcmmly=400) 03/18/18 02:28 Acetaminophen < 10 mcg/mL (10-20) L 03/18/18 02:53 Ur Barbiturates Screen Negative ng/mL (Ypurle=532) 03/18/18 02:28 Ur Phencyclidine Scrn Negative ng/mL (Cutoff=25) 03/18/18 02:28 Ur Amphetamines Screen Negative ng/mL (Vsfqyx=8410) 03/18/18 02:28 U Benzodiazepines Scrn Positive ng/mL (Zbnicv=105) H 03/18/18 02:28 Urine Cocaine Screen Negative ng/mL (Cutoff= 300) 03/18/18 02:28 U Marijuana (THC) Screen Negative ng/mL (Cutoff = 50) 03/18/18 02:28 Ethyl Alcohol 273 mg/dL (Less than 10) H 03/18/18 02:53 Consult Discharge Plan - Plan Referrals: NONE,PCP [Primary Care Provider] -
--- NOTE | 2018-03-20 18:01 | Internal Med Progress Note ---
Date of Encounter: 03/20/18 Time of Encounter: 17:58 - Assessment and plan (1) Alcohol withdrawal Current Visit: Yes Status: Acute Assessment and plan: 43-year-old male with past medical history of alcohol abuse presented with severe alcohol intoxication. - he was admitted last week for the similar symptoms, was treated and released. He recently lost his job and underwent a lot of stress. - Continue Librium tapering dose: 50 mg 3 times a day on day 1, 50 mg 2 times a day on day 2, and 5o mg once a day on days 3. - (Will adjust this since patient not responding to 50 mg TID.) - CIWA with Ativan when necessary, replace thiamine and folate, replace potassium. Still feeling jitters with anxiety. CIWA scores were 12-13 yesterday and today 11-12. Will increase Librium to 75 TID and continue CIWA protocol with Ativan. Qualifiers: Complication of substance-induced condition: uncomplicated Qualified Code(s ): F10.230 - Alcohol dependence with withdrawal, uncomplicated (2) Alcoholic intoxication Current Visit: Yes Status: Resolved Assessment and plan: Resolved Qualifiers: Complication of substance-induced condition: uncomplicated Qualified Code(s ): F10.920 - Alcohol use, unspecified with intoxication, uncomplicated (3) Hypertension Current Visit: No Status: Chronic Assessment and plan: - BP currently well controlled, continue home medication. Qualifiers: Hypertension type: essential hypertension Qualified Code(s): I10 - Essential (primary) hypertension (4) Hepatitis Current Visit: Yes Status: Acute Assessment and plan: - Most likely alcohol related hepatitis, monitoring. (5) Major depressive disorder, single episode, unspecified Current Visit: Yes Status: Acute Assessment and plan: Patient seen by Psychiatry and started on Lexapro Started on Trileptal for mood disorder Qualifiers: Active/Remission status: currently active Major depression episode severity : mild Qualified Code(s): F32.0 - Major depressive disorder, single episode, mild - Time Spent With Patient Total time spent is greater than 50% in coordination of care (as documented) at patient's floor/unit and/or counseling patient: - Subjective Interval history: Patient still feels jittery And he states he is not better. CIWA scores are running 11-12 today. - Constitutional Vitals: Temp Pulse Resp BP Pulse Ox 98.1 F 75 16 153/99 99 04/28/18 15:14 03/20/18 15:14 03/20/18 15:14 03/20/18 15:14 03/20/18 15:14 General appearance: Present: A&O X 3 - Head Head exam: Present: atraumatic, normocephalic - Eye Eye exam: Present: PERRL, conjuntiva pink, sclera anicteric Pupils: Present: PERRL - Neck Neck exam general surgery: Present: supple, trachea midline. Absent: lymphadenopathy - Respiratory Respiratory exam: Present: CTAB. Absent: accessory muscle use, rales, rhonchi, wheezes - Cardiovascular Cardiovascular exam: Present: RRR, +S1, +S2. Absent: diastolic murmur, gallop, rubs, systolic murmur - GI/Abdominal GI/Abdominal exam: Present: normal bowel sounds, soft, no peritoneal signs. Absent: distended, tenderness - Extremities Exam Extremities exam: Present: warm, radial pulses palpable and symmetrical. Absent : calf tenderness, cyanotic, pedal edema - Neurological Exam Neurological exam: Present: CN II-XII intact, oriented X3, no focal deficits. Absent: pronater drift, facial droop, speech deficit - Skin Skin exam: Present: dry, intact Internal Medicine: Result - Labs CBC & Chem 7: 03/20/18 01:27 03/20/18 01:27 Labs: Short CBC 03/20/18 Range/Units 01:27 WBC 7.0 (4.3-11.1) K/mcL Hgb 12.5 L (12.9-16.9) g/dL Hct 35.6 L (37.5-50.1) % Plt Count 140 (140-400) K/mcL Neutrophils # 4.6 (1.6-8.9) K/mcL BMP 03/20/18 01:27 Sodium 138 Potassium 3.5 Chloride 107 Carbon Dioxide 24 BUN 13 Creatinine 1.22 Glucose 113 H Calcium 8.9 Consult Discharge Plan - Plan Referrals: NONE,PCP [Primary Care Provider] -
[2018-03-21 01:19] LABS: Basophils % 0.6 %; Eosinophils # 0.1 K/mcL (0.0-0.6); Hematocrit 36.2 % (37.5-50.1); Hemoglobin 12.7 g/dL (12.9-16.9); Immature Granulocytes % 0.5 % (0-4); Lymphocytes # 1.6 K/mcL (0.6-4.6); Lymphocytes % 24.4 %; Mean Corpuscular HGB Conc 35.1 g/dL (31.6-35.5); Mean Corpuscular Hemoglobin 32.6 pg (28.0-33.3); Mean Corpuscular Volume 93.1 fL (83.0-100.0); Mean Platelet Volume 9.8 fL (9.4-12.4); Monocytes # 0.5 K/mcL (0.0-1.3); Monocytes % 8.4 %; Neutrophils # 4.1 K/mcL (1.6-8.9); Platelet Count 146 K/mcL (140-400); Red Blood Count 3.89 M/mcL (4.19-5.50); Red Cell Distribution Width 12.1 % (11.5-14.5); Segmented Neutrophils % 64.1 %
[2018-03-21] MEDS: *HR* LORazepam 2 MG/ML VIAL IVP PRN ×6 (01:19→21:25)
[2018-03-21 01:40] LABS: BUN/Creatinine Ratio 11 (6-26); Blood Urea Nitrogen 12 mg/dL (6-20); Calcium 8.8 mg/dL (8.6-10.3); Carbon Dioxide 24 mEq/L (23-29); Chloride 107 mEq/L (98-107); Glucose 124 mg/dL (70-105); Osmolality,Calculated 285 (280-300); Potassium 3.6 mEq/L (3.5-5.1); Sodium 137 mEq/L (136-145); eGFR For African Americans > 60 (> 60); eGFR For Non-African Americans > 60 (> 60)
[2018-03-21] MEDS: Folic Acid 1 MG TABLET PO SCH (08:00)
[2018-03-21] MEDS: Lisinopril-HCTZ 20-12.5mg TABLET PO SCH (08:00)
[2018-03-21] MEDS: OXcarbazepine 150 MG TABLET PO SCH ×2 (08:00→19:41)
[2018-03-21] MEDS: Nicotine 7 MG PATCH.TD24 TD SCH (08:00)
[2018-03-21] MEDS: Thiamine (B-1) 100 MG TABLET PO SCH (08:00)
--- NOTE | 2018-03-21 08:31 | Internal Med Progress Note ---
Date of Encounter: 03/21/18 Time of Encounter: 08:29 - Assessment and plan (1) Alcohol withdrawal Current Visit: Yes Status: Acute Assessment and plan: 43-year-old male with past medical history of alcohol abuse presented with severe alcohol intoxication. - he was admitted last week for the similar symptoms, was treated and released. He recently lost his job and underwent a lot of stress. - Continue Librium tapering dose: 50 mg 3 times a day on day 1, 50 mg 2 times a day on day 2, and 5o mg once a day on days 3. - (Will adjust this since patient not responding to 50 mg TID.) - CIWA with Ativan when necessary, replace thiamine and folate, replace potassium. - CIWA scores were ran 11-13 on 03/20-03/12. He required increase of Librium to 75 mg TID. Most recent CIWA is 5. Pending inpatient rehab placement after weekend Qualifiers: Complication of substance-induced condition: uncomplicated Qualified Code(s ): F10.230 - Alcohol dependence with withdrawal, uncomplicated (2) Alcoholic intoxication Current Visit: Yes Status: Resolved Assessment and plan: Resolved Qualifiers: Complication of substance-induced condition: uncomplicated Qualified Code(s ): F10.920 - Alcohol use, unspecified with intoxication, uncomplicated (3) Hypertension Current Visit: No Status: Chronic Assessment and plan: On Prinzide max dose. Has IV hydralazine prn Add Norvasc 5 mg daily today Qualifiers: Hypertension type: essential hypertension Qualified Code(s): I10 - Essential (primary) hypertension (4) Hepatitis Current Visit: Yes Status: Acute Assessment and plan: - Most likely alcohol related hepatitis, no acute issues (5) Major depressive disorder, single episode, unspecified Current Visit: Yes Status: Acute Assessment and plan: Patient seen by Psychiatry and started on Lexapro 03/20 Patient is aware that treatment with ssri takes weeks He also agrees not to continue trazodone since to avoid serotonin syndrome from ssri and oversedation from BZD Qualifiers: Active/Remission status: currently active Major depression episode severity : mild Qualified Code(s): F32.0 - Major depressive disorder, single episode, mild (6) Mood disorder Current Visit: Yes Status: Acute Assessment and plan: Trileptal started by Psychiatry, currently patient appears stable. No acute issues. - Time Spent With Patient Total time spent is greater than 50% in coordination of care (as documented) at patient's floor/unit and/or counseling patient: - Subjective Interval history: Last episode of jitteryness was yesterday, Librium was then increased to 75 mg TID. Currently has no complaints but fears he will be agitated. - Constitutional Vitals: Temp Pulse Resp BP Pulse Ox 97.8 F 69 16 145/95 98 03/21/18 07:03 03/21/18 07:03 03/21/18 07:03 03/21/18 07:03 03/21/18 07:03 General appearance: Present: A&O X 3 - Head Head exam: Present: atraumatic, normocephalic - Eye Eye exam: Present: PERRL, conjuntiva pink, sclera anicteric Pupils: Present: PERRL - Neck Neck exam general surgery: Present: supple, trachea midline. Absent: lymphadenopathy - Respiratory Respiratory exam: Present: CTAB. Absent: accessory muscle use, rales, rhonchi, wheezes - Cardiovascular Cardiovascular exam: Present: RRR, +S1, +S2. Absent: diastolic murmur, gallop, rubs, systolic murmur - GI/Abdominal GI/Abdominal exam: Present: normal bowel sounds, soft, no peritoneal signs. Absent: distended, tenderness - Extremities Exam Extremities exam: Present: warm, radial pulses palpable and symmetrical. Absent : calf tenderness, cyanotic, pedal edema - Neurological Exam Neurological exam: Present: CN II-XII intact, oriented X3, no focal deficits. Absent: pronater drift, facial droop, speech deficit - Skin Skin exam: Present: dry, intact Internal Medicine: Result - Labs CBC & Chem 7: 03/21/18 00:44 03/21/18 00:44 Labs: Short CBC 03/21/18 Range/Units 00:44 WBC 6.4 (4.3-11.1) K/mcL Hgb 12.7 L (12.9-16.9) g/dL Hct 36.2 L (37.5-50.1) % Plt Count 146 (140-400) K/mcL Neutrophils # 4.1 (1.6-8.9) K/mcL BMP 03/21/18 00:44 Sodium 137 Potassium 3.6 Chloride 107 Carbon Dioxide 24 BUN 12 Creatinine 1.13 Glucose 124 H Calcium 8.8 Consult Discharge Plan - Plan Referrals: NONE,PCP [Primary Care Provider] -
[2018-03-21] MEDS: amLODIPine 5 MG TABLET PO SCH (08:35)
[2018-03-21] MEDS: traMADol 50 MG TABLET PO PRN (19:40)
[2018-03-22] MEDS: Nicotine 7 MG PATCH.TD24 TD SCH (08:33)
[2018-03-22] MEDS: Lisinopril-HCTZ 20-12.5mg TABLET PO SCH (08:34)
[2018-03-22] MEDS: Thiamine (B-1) 100 MG TABLET PO SCH (08:34)
[2018-03-22] MEDS: Folic Acid 1 MG TABLET PO SCH (08:34)
[2018-03-22] MEDS: amLODIPine 5 MG TABLET PO SCH (08:34)
[2018-03-22] MEDS: OXcarbazepine 150 MG TABLET PO SCH ×2 (08:34→19:36)
[2018-03-22] MEDS: *HR* LORazepam 2 MG/ML VIAL IVP PRN ×4 (08:44→21:51)
--- NOTE | 2018-03-22 14:02 | Internal Med Progress Note ---
<Luz Mcgee - Last Filed: 03/22/18 17:22> Date of Encounter: 03/22/18 Time of Encounter: 09:15 - Assessment and plan (1) Alcohol withdrawal Current Visit: Yes Status: Acute Assessment and plan: 43-year-old male with past medical history of alcohol abuse presented with severe alcohol intoxication. - He was admitted last week for the similar symptoms, was treated and released. He recently lost his job and underwent a lot of stress. - Continue tapering Librium. Dose readjusted to 75 mg because not responding to 50mg. - Suspect patient is falsifying his symptoms on CIWA questioning in order to receive benzodiazepines - Social workers provided resources for inpatient rehabilitation, however patient has made little effort to contact inpatient rehab facilities Qualifiers: Complication of substance-induced condition: uncomplicated Qualified Code(s ): F10.230 - Alcohol dependence with withdrawal, uncomplicated (2) Alcoholic intoxication Current Visit: Yes Status: Resolved Assessment and plan: Resolved Qualifiers: Complication of substance-induced condition: uncomplicated Qualified Code(s ): F10.920 - Alcohol use, unspecified with intoxication, uncomplicated (3) Hypertension Current Visit: No Status: Chronic Assessment and plan: Lisinopril-HCTZ Norvasc 5 mg PO daily IV hydralazine prn Qualifiers: Hypertension type: essential hypertension Qualified Code(s): I10 - Essential (primary) hypertension (4) Hepatitis Current Visit: Yes Status: Acute Assessment and plan: - Most likely alcohol related hepatitis, no acute issues (5) Major depressive disorder, single episode, unspecified Current Visit: Yes Status: Acute Assessment and plan: Seen by psychiatry--started on Lexapro Has agreed not to continue trazodone since to avoid serotonin syndrome from ssri and oversedation from BZD Qualifiers: Active/Remission status: currently active Major depression episode severity : mild Qualified Code(s): F32.0 - Major depressive disorder, single episode, mild (6) Mood disorder Current Visit: Yes Status: Acute Assessment and plan: Trileptal started by Psychiatry, currently patient appears stable. No acute issues. - Time Spent With Patient Total time spent is greater than 50% in coordination of care (as documented) at patient's floor/unit and/or counseling patient: - Subjective Interval history: Seen and examined at bedside this morning. Pt said he slept well last night. He denies nausea, vomiting, sweating, tactile hallucination, visual hallucinations , or auditory hallucinations. He states feels like he is having tremors. He admits to anxiety and agitation that isn't present on interview, but feels that it is coming. He denies chest pain, shortness of breath, abdominal pain, headache. - Constitutional Vitals: Temp Pulse Resp BP Pulse Ox 98.0 F 90 18 110/73 98 03/22/18 11:14 03/22/18 11:14 03/22/18 11:14 03/22/18 11:14 03/22/18 11:14 General appearance: Present: A&O X 3 Exam: General: vital signs noted, No acute distress, sitting comfortably in bed HEENT: head normocephalic/atraumatic, EOMI, PERRL, sclera anicteric, moist mucus membranes, Neck: Supple,FROM Cardio: RRR, no murmurs, +S1/S2 Pulm: CTAB, no wheezing, rhonchi, rales. Normal respiratory effort. Abdomen: soft, nontender, BS+, no rebound, rigidity, guarding, distention Extremities: No LE edema, no calf tenderness, no cyanosis Neuro: AAOx3, no focal deficit, no speech deficit, mentation intact, normal gait , CN II-XII grossly intact MSK: Strength 5/5 throughout, no visible deformities Skin: clean, dry, intact, no visible rashes Psych: Answers questions appropriately. Cooperative with exam Internal Medicine: Result - Labs CBC & Chem 7: 03/21/18 00:44 03/21/18 00:44 - VTE Reasons for not Prescribing Prophylaxis: Treatment not Indicated - Low risk for VTE Consult Discharge Plan - Plan Referrals: NONE,PCP [Primary Care Provider] - <Constantino Mcnally - Last Filed: 03/22/18 18:37> Date of Encounter: 03/22/18 - Assessment and plan (1) Alcohol withdrawal Current Visit: Yes Status: Acute Qualifiers: Complication of substance-induced condition: uncomplicated Qualified Code(s ): F10.230 - Alcohol dependence with withdrawal, uncomplicated (2) Alcoholic intoxication Current Visit: Yes Status: Resolved Qualifiers: Complication of substance-induced condition: uncomplicated Qualified Code(s ): F10.920 - Alcohol use, unspecified with intoxication, uncomplicated (3) Hypertension Current Visit: No Status: Chronic Qualifiers: Hypertension type: essential hypertension Qualified Code(s): I10 - Essential (primary) hypertension (4) Hepatitis Current Visit: Yes Status: Acute (5) Major depressive disorder, single episode, unspecified Current Visit: Yes Status: Acute Qualifiers: Active/Remission status: currently active Major depression episode severity : mild Qualified Code(s): F32.0 - Major depressive disorder, single episode, mild (6) Mood disorder Current Visit: Yes Status: Acute - Time Spent With Patient Total time spent is greater than 50% in coordination of care (as documented) at patient's floor/unit and/or counseling patient: - Constitutional Vitals: Temp Pulse Resp BP Pulse Ox 98.3 F 87 16 114/78 99 03/22/18 14:19 03/22/18 14:19 03/22/18 14:19 03/22/18 14:19 03/22/18 14:19 Internal Medicine: Result - Labs CBC & Chem 7: 03/21/18 00:44 03/21/18 00:44 - Attending Attestation I performed a history and physical examination of the patient and discussed his/ her management with the resident. I reviewed the residents note and agree with the documented findings and plan of care.
[2018-03-22] MEDS: traMADol 50 MG TABLET PO PRN (19:37)
[2018-03-23] MEDS: Lisinopril-HCTZ 20-12.5mg TABLET PO SCH (10:05)
[2018-03-23] MEDS: Nicotine 7 MG PATCH.TD24 TD SCH (10:06)
[2018-03-23] MEDS: Folic Acid 1 MG TABLET PO SCH (10:06)
[2018-03-23] MEDS: amLODIPine 5 MG TABLET PO SCH (10:06)
[2018-03-23] MEDS: OXcarbazepine 150 MG TABLET PO SCH ×2 (10:06→20:06)
[2018-03-23] MEDS: Thiamine (B-1) 100 MG TABLET PO SCH (10:08)
[2018-03-23] MEDS: *HR* LORazepam 0.5 MG TABLET PO PRN (10:49)
[2018-03-23] MEDS ORDERED: *HR* LORazepam 1 MG TABLET PO ONE (16:10)
--- NOTE | 2018-03-23 18:20 | Event Note ---
Date of Encounter: 03/23/18 Time of Encounter: 12:45 I examined this patient and my medical decision-making was reviewed with the Resident Physician on 03/23/18. I agree with the documented findings, disposition and treatment plan as described except to the extent set forth below. Mr St is currently admitted for acute ETOH withdrawal. He remains moderate to high risk due to potential for worsening clinical status. Mr. St is complaining of anxiety issues. He has not needed much Ativan. He remains on Librium Exam Alert Comfortable No tremor Heart not tachy No wheeze I/P 1. Acute ETOH withdrawal 2. HTN 3. Depression and anxiety 4. Acute alcoholic hepatitis presumed and resolved. Further diagnoses and plan per progress note of today. working on discharge planning to inpatient alcohol rehab.
--- NOTE | 2018-03-23 20:01 | Internal Med Progress Note ---
<Luz Mcgee - Last Filed: 03/23/18 21:00> Date of Encounter: 03/23/18 Time of Encounter: 10:20 - Assessment and plan (1) Alcohol withdrawal Current Visit: Yes Status: Acute Assessment and plan: 43-year-old male with past medical history of alcohol abuse presented with severe alcohol intoxication. - He was admitted last week for the similar symptoms, was treated and released. He recently lost his job and underwent a lot of stress. - Continue tapering Librium. Dose readjusted to 75 mg because not responding to 50mg. - Suspect patient is falsifying his symptoms on CIWA questioning in order to receive benzodiazepines - Social workers provided resources for inpatient rehabilitation, however patient has made little effort to contact inpatient rehab facilities 03/23: Will stop CIWA as scores have been low and patient is likely falsifying symptoms. Will also change BZ to PO. Patient still has made little effort to contact inpatient rehab facilities. Qualifiers: Complication of substance-induced condition: uncomplicated Qualified Code(s ): F10.230 - Alcohol dependence with withdrawal, uncomplicated (2) Alcoholic intoxication Current Visit: Yes Status: Resolved Assessment and plan: Resolved, discontinue CIWA Qualifiers: Complication of substance-induced condition: uncomplicated Qualified Code(s ): F10.920 - Alcohol use, unspecified with intoxication, uncomplicated (3) Hypertension Current Visit: No Status: Chronic Assessment and plan: Lisinopril-HCTZ Norvasc 5 mg PO daily IV hydralazine prn Qualifiers: Hypertension type: essential hypertension Qualified Code(s): I10 - Essential (primary) hypertension (4) Hepatitis Current Visit: Yes Status: Acute Assessment and plan: - Most likely alcohol related hepatitis, no acute issues (5) Major depressive disorder, single episode, unspecified Current Visit: Yes Status: Acute Assessment and plan: Seen by psychiatry--started on Lexapro Has agreed not to continue trazodone since to avoid serotonin syndrome from ssri and oversedation from BZD Qualifiers: Active/Remission status: currently active Major depression episode severity : mild Qualified Code(s): F32.0 - Major depressive disorder, single episode, mild (6) Mood disorder Current Visit: Yes Status: Acute Assessment and plan: Trileptal started by Psychiatry, currently patient appears stable. No acute issues. - Time Spent With Patient Total time spent is greater than 50% in coordination of care (as documented) at patient's floor/unit and/or counseling patient: - Subjective Interval history: Seen and examined at bedside this morning. Pt said he slept well last night. He denies nausea, vomiting, sweating, tactile hallucination, visual hallucinations , or auditory hallucinations. He states feels like he is having tremors. He admits to anxiety and agitation that isn't present on interview, but feels that it is coming. He denies chest pain, shortness of breath, abdominal pain, headache. - Constitutional Vitals: Temp Pulse Resp BP Pulse Ox 98.7 F 83 14 102/69 97 03/23/18 18:55 03/23/18 18:55 03/23/18 18:55 03/23/18 18:55 03/23/18 18:55 General appearance: Present: A&O X 3 Exam: General: vital signs noted, No acute distress, sitting comfortably in bed HEENT: head normocephalic/atraumatic, EOMI, PERRL, sclera anicteric, moist mucus membranes, Neck: Supple,FROM Cardio: RRR, no murmurs, +S1/S2 Pulm: CTAB, no wheezing, rhonchi, rales. Normal respiratory effort. Abdomen: soft, nontender, BS+, no rebound, rigidity, guarding, distention Extremities: No LE edema, no calf tenderness, no cyanosis Neuro: AAOx3, no focal deficit, no speech deficit, mentation intact, normal gait , CN II-XII grossly intact MSK: Strength 5/5 throughout, no visible deformities, no tremors Skin: clean, dry, intact, no visible rashes Psych: Answers questions appropriately. Cooperative with exam Internal Medicine: Result - Labs CBC & Chem 7: 03/21/18 00:44 03/21/18 00:44 - VTE Reasons for not Prescribing Prophylaxis: Treatment not Indicated - Low risk for VTE Consult Discharge Plan - Plan Referrals: NONE,PCP [Primary Care Provider] - <Diego Gomez - Last Filed: 03/24/18 08:57> Date of Encounter: 03/23/18 - Assessment and plan (1) Alcohol withdrawal Current Visit: Yes Status: Acute Qualifiers: Complication of substance-induced condition: uncomplicated Qualified Code(s ): F10.230 - Alcohol dependence with withdrawal, uncomplicated (2) Alcoholic intoxication Current Visit: Yes Status: Resolved Qualifiers: Complication of substance-induced condition: uncomplicated Qualified Code(s ): F10.920 - Alcohol use, unspecified with intoxication, uncomplicated (3) Hypertension Current Visit: No Status: Chronic Qualifiers: Hypertension type: essential hypertension Qualified Code(s): I10 - Essential (primary) hypertension (4) Hepatitis Current Visit: Yes Status: Acute (5) Major depressive disorder, single episode, unspecified Current Visit: Yes Status: Acute Qualifiers: Active/Remission status: currently active Major depression episode severity : mild Qualified Code(s): F32.0 - Major depressive disorder, single episode, mild (6) Mood disorder Current Visit: Yes Status: Acute - Time Spent With Patient Total time spent is greater than 50% in coordination of care (as documented) at patient's floor/unit and/or counseling patient: - Constitutional Vitals: Temp Pulse Resp BP Pulse Ox 98.4 F 66 14 121/77 96 03/24/18 06:28 03/24/18 06:28 03/24/18 06:28 03/24/18 06:28 03/24/18 06:28 Internal Medicine: Result - Labs CBC & Chem 7: 03/21/18 00:44 03/21/18 00:44 - Attending Attestation I examined this patient and my medical decision-making was reviewed with the Resident Physician on 03/23/18. I agree with the documented findings, disposition and treatment plan as described except to the extent set forth below. Please see event note of this date. Librium dropped to 50mg TID.
[2018-03-23] MEDS: *HR* LORazepam 2 MG/ML VIAL IVP PRN (21:40)
[2018-03-24] MEDS: Lisinopril-HCTZ 20-12.5mg TABLET PO SCH (08:40)
[2018-03-24] MEDS: Folic Acid 1 MG TABLET PO SCH (08:40)
[2018-03-24] MEDS: Thiamine (B-1) 100 MG TABLET PO SCH (08:41)
[2018-03-24] MEDS: Nicotine 7 MG PATCH.TD24 TD SCH (08:41)
[2018-03-24] MEDS: amLODIPine 5 MG TABLET PO SCH (08:41)
[2018-03-24] MEDS: OXcarbazepine 150 MG TABLET PO SCH ×2 (08:41→20:17)
[2018-03-24] MEDS: *HR* LORazepam 0.5 MG TABLET PO PRN ×2 (08:44→17:32)
[2018-03-24] MEDS: traMADol 50 MG TABLET PO PRN (14:02)
[2018-03-24] MEDS: *HR* LORazepam 1 MG TABLET PO PRN (15:42)
--- NOTE | 2018-03-24 16:37 | Internal Med Progress Note ---
<Diego Gomez Jessa - Last Filed: 03/24/18 18:29> Date of Encounter: 03/24/18 - Assessment and plan (1) Alcohol withdrawal Current Visit: Yes Status: Acute Qualifiers: Complication of substance-induced condition: uncomplicated Qualified Code(s ): F10.230 - Alcohol dependence with withdrawal, uncomplicated (2) Alcoholic intoxication Current Visit: Yes Status: Resolved Qualifiers: Complication of substance-induced condition: uncomplicated Qualified Code(s ): F10.920 - Alcohol use, unspecified with intoxication, uncomplicated (3) Hypertension Current Visit: No Status: Chronic Qualifiers: Hypertension type: essential hypertension Qualified Code(s): I10 - Essential (primary) hypertension (4) Hepatitis Current Visit: Yes Status: Acute (5) Major depressive disorder, single episode, unspecified Current Visit: Yes Status: Chronic Qualifiers: Active/Remission status: currently active Major depression episode severity : mild Qualified Code(s): F32.0 - Major depressive disorder, single episode, mild (6) Mood disorder Current Visit: Yes Status: Acute (7) Tobacco abuse Current Visit: Yes Status: Chronic - Time Spent With Patient Total time spent is greater than 50% in coordination of care (as documented) at patient's floor/unit and/or counseling patient: - Constitutional Vitals: Temp Pulse Resp BP Pulse Ox 98.7 F 77 14 131/74 97 03/24/18 16:00 03/24/18 16:00 03/24/18 16:00 03/24/18 16:00 03/24/18 16:00 Internal Medicine: Result - Labs CBC & Chem 7: 03/21/18 00:44 03/21/18 00:44 Consult Discharge Plan - Plan Referrals: NONE,PCP [Primary Care Provider] - - Attending Attestation I examined this patient and my medical decision-making was reviewed with the Resident Physician on 03/24/18. I agree with the documented findings, disposition and treatment plan as described except to the extent set forth below. Mr St is currently admitted for acute ETOH withdrawal and anxiety. He remains moderate to high risk due to potential for worsening clinical status. Mr St remains anxious. Librium decreased. No fever. No other acute issues. Working on d/c planning. Exam alert Anxious Mucus membranes dry Heart not tachy No wheeze I/P 1 ETOH withdrawal 2. Anxiety Further diagnoses and plan as above. Anticipate d/c to rehab tomorrow. <Luz Mcgee - Last Filed: 03/24/18 20:18> Date of Encounter: 03/24/18 Time of Encounter: 14:00 - Assessment and plan (1) Alcohol withdrawal Current Visit: Yes Status: Resolved Assessment and plan: 43-year-old male with past medical history of alcohol abuse presented with severe alcohol intoxication. He was admitted last week for the similar symptoms, was treated and released. He recently lost his job and underwent a lot of stress. CIWA discontinued--No signs or symptoms of withdrawal Ativan switched to PO with decreased doses for anxiety and Librium 50mg TID Bed available and accepted to [facility] 30 day program - Anticipate d/c tomorrow afternoon Qualifiers: Complication of substance-induced condition: uncomplicated Qualified Code(s ): F10.230 - Alcohol dependence with withdrawal, uncomplicated (2) Alcoholic intoxication Current Visit: Yes Status: Resolved Assessment and plan: Resolved, discontinued CIWA Qualifiers: Complication of substance-induced condition: uncomplicated Qualified Code(s ): F10.920 - Alcohol use, unspecified with intoxication, uncomplicated (3) Hypertension Current Visit: No Status: Chronic Assessment and plan: Controlled Lisinopril-HCTZ and norvasc PO daily IV hydralazine prn Qualifiers: Hypertension type: essential hypertension Qualified Code(s): I10 - Essential (primary) hypertension (4) Hepatitis Current Visit: Yes Status: Acute Assessment and plan: Most likely alcohol related hepatitis, no acute issues (5) Major depressive disorder, single episode, unspecified Current Visit: Yes Status: Chronic Assessment and plan: Seen by psychiatry--started on Lexapro Qualifiers: Active/Remission status: currently active Major depression episode severity : mild Qualified Code(s): F32.0 - Major depressive disorder, single episode, mild (6) Mood disorder Current Visit: Yes Status: Acute Assessment and plan: Trileptal started by Psychiatry. No acute issues. - Time Spent With Patient Total time spent is greater than 50% in coordination of care (as documented) at patient's floor/unit and/or counseling patient: - Subjective Interval history: Seen and examined. He continues to be anxious as his discharge planning to inpatient rehab facility has become more concrete. He denies chest pain, shortness of breath, abdominal pain, fever, chills. - Constitutional Vitals: Temp Pulse Resp BP Pulse Ox 98.4 F 66 14 121/77 96 03/24/18 06:28 03/24/18 06:28 03/24/18 06:28 03/24/18 06:28 03/24/18 08:53 Exam: General: vital signs reviewed, No acute distress HEENT: head normocephalic/atraumatic, EOMI, PERRL, sclera anicteric Neck: Supple Cardio: RRR, no murmurs, +S1/S2 Pulm: CTAB, no wheezing, rhonchi, rales. Normal respiratory effort. Abdomen: soft, nontender, BS+ Neuro: AAOx3, no focal deficits, mentation intact, normal gait MSK: Strength 5/5 throughout, no visible deformities, no tremors Skin: clean, dry, intact, no visible rashes Psych: Anxious. Answers questions appropriately. Cooperative with exam Internal Medicine: Result - Labs CBC & Chem 7: 03/21/18 00:44 03/21/18 00:44 - VTE Reasons for not Prescribing Prophylaxis: Treatment not Indicated - Low risk for VTE
[2018-03-25] MEDS: *HR* LORazepam 1 MG TABLET PO PRN (00:18)
[2018-03-25] MEDS: *HR* LORazepam 0.5 MG TABLET PO PRN (01:38)
[2018-03-25] MEDS: OXcarbazepine 150 MG TABLET PO SCH (08:00)
[2018-03-25] MEDS: amLODIPine 5 MG TABLET PO SCH (08:00)
[2018-03-25] MEDS: Folic Acid 1 MG TABLET PO SCH (08:00)
[2018-03-25] MEDS: Thiamine (B-1) 100 MG TABLET PO SCH (08:00)
[2018-03-25] MEDS: Lisinopril-HCTZ 20-12.5mg TABLET PO SCH (08:00)
[2018-03-25] MEDS: Nicotine 7 MG PATCH.TD24 TD SCH (08:01)
--- NOTE | 2018-03-25 08:46 | Discharge Summary ---
<Diego Gomez - Last Filed: 03/25/18 17:40> Date of Encounter: 03/25/18 - Discharge Diagnosis (1) Alcohol withdrawal Priority: Primary Status: Resolved Qualifiers: Complication of substance-induced condition: uncomplicated Qualified Code(s ): F10.230 - Alcohol dependence with withdrawal, uncomplicated (2) Alcoholic intoxication Priority: Primary Status: Resolved Qualifiers: Complication of substance-induced condition: uncomplicated Qualified Code(s ): F10.920 - Alcohol use, unspecified with intoxication, uncomplicated (3) Hypertension Priority: Secondary Status: Chronic Qualifiers: Hypertension type: essential hypertension Qualified Code(s): I10 - Essential (primary) hypertension (4) Hepatitis Priority: Secondary Status: Chronic (5) Tobacco abuse Priority: Secondary Status: Chronic (6) Major depressive disorder, single episode, unspecified Priority: Secondary Status: Chronic Qualifiers: Active/Remission status: currently active Major depression episode severity : mild Qualified Code(s): F32.0 - Major depressive disorder, single episode, mild (7) Mood disorder Priority: Secondary Status: Acute Hospital course: Mr. St is a 43 year old male - Time Spent with Patient Total time spent providing and/or coordinating discharge services: 38min - Discharge Medications Prescriptions: amLODIPine [Norvasc] 5 mg PO DAILY 30 Days #30 tablet Chlordiazepoxide [Librium] See Taper PO TID 6 Days #14 capsule Escitalopram [Lexapro] 10 mg PO DAILY #30 tablet OXcarbazepine [Trileptal] 150 mg PO BID #60 tablet Home Medications: Meloxicam 15 mg PO DAILY 03/14/18 [History] Omeprazole [PriLOSEC] 20 mg PO DAILY 03/14/18 [History] hydrOXYzine pamoate [HydrOXYzine Pamoate] 50 mg PO QID PRN 03/14/18 [History] Chlordiazepoxide [Librium] See Taper PO TID 6 Days #14 capsule 03/25/18 [Rx] Escitalopram [Lexapro] 10 mg PO DAILY #30 tablet 03/25/18 [Rx] Lisinopril-HCTZ 20-12.5 [Prinzide 20-12.5] 1 tab PO DAILY 30 Days #30 03/25/18 [ Rx] OXcarbazepine [Trileptal] 150 mg PO BID #60 tablet 03/25/18 [Rx] amLODIPine [Norvasc] 5 mg PO DAILY 30 Days #30 tablet 03/25/18 [Rx] Allergies/Adverse Reactions: 3 Allergy/AdvReac Type Severity Reaction Status Date / Time No Known Allergies Allergy Verified 03/18/18 09:32 Date of admission: 03/21/18 08:29 Primary care physician: PCP NONE - Constitutional Vitals: Temp Pulse Resp BP Pulse Ox 97.5 F L 56 14 136/79 97 03/25/18 11:17 03/25/18 11:17 03/25/18 11:17 03/25/18 11:17 03/25/18 11:17 - Patient Status Disposition: Transfer Other Condition: Undetermined - Discharge Instructions Follow Up With: NONE,PCP [Primary Care Provider] - Additional Instructions: Follow-up appointments: If there is not an appointment listed below, please call your physician and schedule a follow-up appointment. If you have congestive heart failure and your symptoms return, make an appointment with your physician. Medication List: Carry an up to date list of medications you are taking at all time. We have given you an updated medication list including any new medications that you have been prescribed. Please provide that list to your primary provider Symptoms: If your condition changes or you experience any of the following symptoms, notify your physician immediately: Unusual or worsening pain, fever, persistent nausea and vomiting, bleeding, increase in swelling (especially in your legs), sudden weight gain, extreme dizziness, chest pain, increased drainage or redness from a wound or incision. Go to the emergency department if you experience a problem with breathing. Weights: If you have a history of swelling or shortness of breath, weigh yourself daily and notify your physician if you have a weight gain of two or more pounds in one day or 5 or more pounds in a week. If you experience any of the warning signs for stroke: Sudden numbness or weakness of the face, arm or leg; especially on one side of the body, sudden confusion, trouble speaking or understanding, sudden trouble seeing in one or both eyes, sudden trouble walking, dizziness, loss of balance or coordination, sudden sever headache with no cause; Call 911 or go to the emergency room. Stroke is a medical emergency. Some risk factors for stroke: Age, cigarette smoking, diabetes, excessive alcohol consumption, family history , high blood pressure, overweight, physical inactivity, prior stroke, heart attack, diagnosis of carotid artery stenosis or other artery disease. If you smoke, STOP: Smoking or tobacco use significantly increases your risk of heart and lung disease. Your chance of disease greatly increases if you continue to smoke. For more information, call the [place] tobacco quit line for smoking cessation -NOW ( ) - Attending Attestation I examined this patient and my medical decision-making was reviewed with the Resident Physician on 03/25/18. I agree with the documented findings, disposition and treatment plan as described except to the extent set forth below. Mr. St has been admitted for acute ETOH withdrawal. He is now afebrile and to be discharged to inpatient rehab for alcohol. Exam alert Comfortable Mucus membranes dry Heart not tachy No wheeze abd soft Plan D/C to inpatient alcohol rehab Librium taper <Luz Mcgee - Last Filed: 03/25/18 20:26> Date of Encounter: 03/25/18 Time of Encounter: 11:50 - Discharge Diagnosis (1) Hypertension Status: Chronic Qualifiers: Hypertension type: essential hypertension Qualified Code(s): I10 - Essential (primary) hypertension (2) Hepatitis Status: Chronic (3) Major depressive disorder, single episode, unspecified Status: Chronic Qualifiers: Active/Remission status: currently active Major depression episode severity : mild Qualified Code(s): F32.0 - Major depressive disorder, single episode, mild (4) Mood disorder Status: Acute Hospital course: Mr. St is a 43 year old male who presented to the emergency department via EMS for alcohol intoxication. He was admitted for alcohol intoxication less than 1 week ago asking for help with AA or rehab. Vital signs on arrival showed he was afebrile, HR 101, RR 18, BP 131/89, pulse ox 97%. Labs showed elevated liver enzymes consistent with alcohol abuse. Toxicology screen was positive for benzodiazepines along with alcohol level. While in the emergency department the patient was noted to be tremulous, sweating, and vomiting. He was given Ativan, Phenergan, and started on thiamine. He was admitted to hospitalist service for further care. Over the course of his hospital visit he was monitored for alcohol withdrawal, given Ativan according to CIWA scores, a Librium taper was started. Electrolyte abnormalities were corrected. His chronic hypertension was managed and he was placed on Norvasc 5 mg daily. Patient was seen by psychiatry who started him on Lexapro for depression and Trileptal for mood disorder. Over several days his CIWA scores decreased to range where Ativan would not be given. After patient was out of the window for delirium tremens and his vital signs stabilized there was suspicion that the patient was falsifying his answers to CIWA questions in order to receive IV benzodiazepine. Once medically stable, CIWA protocol was stopped, IV benzos switched to by mouth, benzo dosages were decreased. Social work was able to find an inpatient treatment center ([facility]) who agreed to accept the patient and the patient agreed to go to the facility. On the day of discharge he was deemed medically stable with vital signs showing T 97.5, HR 56, RR 14, BP 136/79, pulse ox 97% on room air. Patient was transported to rehabilitation facility by ambulance and he was sent with a prescription for a 6 day Librium taper. - Time Spent with Patient Total time spent providing and/or coordinating discharge services: Date of admission: 03/21/18 08:29 Primary care physician: PCP NONE - Constitutional Vitals: Temp Pulse Resp BP Pulse Ox 97.4 F L 56 14 118/81 96 03/25/18 07:18 03/25/18 07:18 03/25/18 07:18 03/25/18 07:18 03/25/18 07:18 Exam: General: vital signs reviewed, No acute distress HEENT: head normocephalic/atraumatic, EOMI, PERRL, sclera anicteric Neck: Supple Cardio: RRR, no murmurs, +S1/S2 Pulm: CTAB, no wheezing, rhonchi, rales. Normal respiratory effort. Abdomen: soft, nontender, BS+ Neuro: AAOx3, no focal deficits, mentation intact, normal gait MSK: Strength 5/5 throughout, no visible deformities, no tremors Skin: clean, dry, intact, no visible rashes Psych: Answers questions appropriately. Cooperative with exam - VTE Reasons for not Prescribing Prophylaxis: Treatment not Indicated - Low risk for VTE
[2018-03-25 11:19] VITALS: BP 136/79
== END 2018-03-25 13:13 | disposition other institution (70) | DRG 775 ==
LOC: 2SOUTHHOLD 02:19 → EMEROO 02:19 → 2SOUTHHOLD 06:27 → 3NENU 15:00 → SUATTDRO 03-21 08:29
PROVIDERS: ADMIT Internal Medicine Cardiovascular Disease; ATTEND Internal Medicine

== ENCOUNTER 2018-03-25 19:11 | Inpatient (IN) ==
--- NOTE | 2018-03-25 19:43 | Emergency Department Note ---
Disposition Clinical Impression: Suicidal ideation Alcoholic intoxication Qualifiers: Complication of substance-induced condition: uncomplicated Qualified Code(s): F10.920 - Alcohol use, unspecified with intoxication, uncomplicated Altered mental status Qualifiers: Altered mental status type: unspecified Qualified Code(s): R41.82 - Altered mental status, unspecified Disposition: Admitted As Inpatient Condition: Good Forms: ED Satisfaction Letter Time of Disposition: 21:27 General Adult HPI - General Chief complaint: ED Alcohol Abuse Stated complaint: altered Time Seen by Provider: 03/25/18 19:19 Source: patient, EMS Mode of arrival: EMS Limitations: altered mental status Nursing Notes Reviewed: Yes Vital Signs Reviewed: Yes - History of Present Illness HPI Narrative: Patient is a 43-year-old male that presents the emergency department via EMS for altered mental status and intoxication. Patient was discharged from the hospital today for alcohol withdrawal and acute alcohol intoxication. EMS states that he was found in a driveway that was not his laying on the ground up against his truck. They state that a bystander called EMS. The patient is able to provide little history due to being altered and intoxicated. The patient does state that he has had 3 beers today and states he does not want to keep drinking and does not want to live anymore. Patient became emotional and refused to answer any further questions Pain Scale: 0 - Related Data Home Medications Medication Instructions Recorded Confirmed Meloxicam 15 mg PO DAILY 03/14/18 03/18/18 Omeprazole [PriLOSEC] 20 mg PO DAILY 03/14/18 03/18/18 hydrOXYzine pamoate [HydrOXYzine 50 mg PO QID PRN 03/14/18 03/18/18 Pamoate] Previous Rx's Medication Instructions Recorded Chlordiazepoxide [Librium] See Taper PO TID 6 Days #14 capsule 03/25/18 Escitalopram [Lexapro] 10 mg PO DAILY #30 tablet 03/25/18 Lisinopril-HCTZ 20-12.5 [Prinzide 1 tab PO DAILY 30 Days #30 03/25/18 20-12.5] OXcarbazepine [Trileptal] 150 mg PO BID #60 tablet 03/25/18 amLODIPine [Norvasc] 5 mg PO DAILY 30 Days #30 tablet 03/25/18 Allergies Allergy/AdvReac Type Severity Reaction Status Date / Time No Known Allergies Allergy Verified 03/18/18 09:32 All systems ED: reviewed and negative except as stated. Limitations: ROS unobtainable due to patients medical condition Past Medical History - Past Medical History Medical history: Reports: no medical history, hypertension Surgical history: Reports: appendectomy, other Psychiatric history: Reports: no psych history - Social History Smoking Status: Current every day smoker Smokeless Tobacco Status: No Alcohol use: Reports: heavy, recent Drug use: Reports: none Physical Exam - General Limitations: no limitations General appearance: appears intoxicated - Head Head exam: normocephalic, other (Patient has abrasions over the forehead.) - Eye Eye exam: Present: normal appearance, PERRL, EOMI - Neck Neck exam: Present: normal inspection, full ROM, trachea midline - Expanded Neck Exam Neck exam focused ED: Present: midline tenderness - Respiratory Respiratory exam: Present: normal lung sounds bilaterally. Absent: respiratory distress, wheezes - Cardiovascular Cardiovascular exam: Present: normal rhythm, tachycardia, normal heart sounds, + S1, +S2 - Abdominal Exam Abdominal exam: Present: soft, Non-Tender, normal bowel sounds - Neurological Exam Neurological exam: Present: alert. Absent: oriented X3 (Patient is unable to tell me the correct month but is oriented to place and person.) - Expanded Neurological Exam Patient oriented to: Present: person, place. Absent: time Cranial nerves: EOM function (II, III, IV, ): Normal, facial sensation (V): Normal, facial palsy (VII): Normal, gag reflex (IX): Normal, spinal accessory function (XI): Normal, tongue deviation (XII): Normal Motor strength - LUE: 5/5 Motor strength - RUE: 5/5 Motor strength - LLE: 5/5 Motor strength - RLE: 5/5 Sensory exam upper extremity: light touch: Normal Sensory exam lower extremity: light touch: Normal Coma Scale Eye Opening: Spontaneous Coma Scale Motor Response: Obeys Commands Coma Scale Verbal Response: Confused Coma Scale Total: 14 - Psychiatric Psychiatric exam: Present: depressed, agitated - Skin Skin exam: Present: warm, dry, other (Abrasions on the forehead) Course - Reevaluation(s) Reevaluation #1: CT scans of the head and cervical spine were negative per radiology. The patient will need to be admitted to the hospital for further evaluation and management for acute alcohol intoxication and suicidal ideation. Time: 20:59 Reevaluation #2: After speaking with the patient to inform him that we are and give him a dose of Ativan and admit him to the hospital he stated that he wants help and does not want to drink anymore and wants help finding placement into a rehabilitation center that is clean and he is comfortable going to. The patient was appreciative of the care that was provided here in the emergency department and stated that he really does want to quit drinking. Time: 21:32 Vital Signs Temperature 98.4 F 03/25/18 19:16 Pulse Rate 101 03/25/18 19:16 Respiratory Rate 18 03/25/18 19:16 Blood Pressure 120/54 03/25/18 19:16 O2 Sat by Pulse Oximetry 95 03/25/18 19:16 Temperature 98.4 F 03/25/18 19:16 Pulse Rate 101 03/25/18 19:16 Respiratory Rate 18 03/25/18 19:16 Blood Pressure 120/54 03/25/18 19:16 O2 Sat by Pulse Oximetry 95 03/25/18 19:16 Oxygen Delivery Oxygen Delivery Room Air Medical Decision Making - MDM Narrative Medical decision making narrative: Due to the patient presenting with altered mental status and acute alcohol intoxication with signs of trauma feel that is necessary to perform a CT scan of the head and cervical spine as well as obtain medical screening labs including a CBC, BMP, urinalysis, urine drug screen, salicylate, acetaminophen and ethanol. The patient will likely need admission to the hospital for further evaluation and management and medical clearance. The patient a small level was 213. Was positive for benzodiazepine which consistent with the patient receiving treatment in the hospital. The remainder of his laboratory testing was relatively unremarkable. The CT scans per radiology were negative for acute findings. I called and spoke with the hospitalist Dr Mauro and they have accepted the patient to their service. The patient will be admitted at this time due to acute alcohol intoxication with the statement of not wanting to live anymore. - Medical Records Medical records reviewed: Yes I reviewed the patient's medical records. - Lab Data Lab results reviewed: Yes I reviewed the patient's lab results. Result diagrams: 03/25/18 19:45 03/25/18 19:45 Lab Results 03/25/18 03/25/18 03/25/18 Range/Units 19:20 19:20 19:45 WBC 9.6 (4.3-11.1) K/mcL RBC 4.04 L (4.19-5.50) M/mcL Hgb 13.2 (12.9-16.9) g/dL Hct 37.2 L (37.5-50.1) % MCV 92.1 (83.0-100.0) fL MCH 32.7 (28.0-33.3) pg MCHC 35.5 (31.6-35.5) g/dL RDW 11.9 (11.5-14.5) % Plt Count 280 D (140-400) K/mcL MPV 9.2 L (9.4-12.4) fL Immature Gran % 0.6 (0-4) % Seg Neutrophils % 70.2 % Lymphocytes % 21.9 % Monocytes % 5.5 % Eosinophils % 1.2 % Basophils % 0.6 % Neutrophils # 6.7 (1.6-8.9) K/mcL Lymphocytes # 2.1 (0.6-4.6) K/mcL Monocytes # 0.5 (0.0-1.3) K/mcL Eosinophils # 0.1 (0.0-0.6) K/mcL Basophils # 0.1 (0.0-0.2) K/mcL PT (9.4-12.1) Seconds INR APTT (26.0-36.0) Seconds Sodium (136-145) mEq/L Potassium (3.5-5.1) mEq/L Chloride (98-107) mEq/L Carbon Dioxide (23-29) mEq/L BUN (6-20) mg/dL Creatinine (0.70-1.30) mg/dL Est GFR ( Amer) (> 60) Est GFR (Non-Af Amer) (> 60) BUN/Creatinine Ratio (6-26) Glucose (70-105) mg/dL Calculated Osmolality (280-300) Calcium (8.6-10.3) mg/dL Total Bilirubin (0.3-1.0) mg/dL Direct Bilirubin (0.0-0.2) mg/dL Indirect Bilirubin (0.0-1.2) mg/dL AST (13-39) Units/L ALT (7-52) Units/L Alkaline Phosphatase (34-104) Units/L Ammonia (16-53) mcmol/L Troponin I (< 0.04) ng/mL Serum Total Protein (6.4-8.9) g/dL Albumin (3.5-5.7) g/dL Globulin (2.4-3.5) g/dL Albumin/Globulin Ratio (1.1-2.2) Urine Color Yellow (Yellow) Urine Clarity Clear (Clear) Urine pH 6.0 (5.0-8.0) pH Units Ur Specific [place] 1.017 (1.010-1.025) Urine Protein Negative (Neg-Trace) mg/dL Urine Glucose (UA) Normal (Normal) mg/dL Urine Ketones Negative (Negative) mg/dL Urine Blood Negative (Negative) Urine Nitrite Negative (Negative) Urine Bilirubin Negative (Negative) Urine Urobilinogen Normal (Normal) mg/dL Ur Leukocyte Esterase Negative (Negative) Ur Culture Indicated? NO (NO) Salicylates (15.0-30.0) mg/dL Urine Opiates Screen Negative (Ctazsh=418) ng/mL Acetaminophen (10-20) mcg/mL Ur Barbiturates Screen Negative (Bownlv=339) ng/mL Ur Phencyclidine Scrn Negative (Cutoff=25) ng/mL Ur Amphetamines Screen Negative (Clunls=7034) ng/mL U Benzodiazepines Scrn Positive H (Crmiff=581) ng/mL Urine Cocaine Screen Negative (Cutoff= 300) ng/mL U Marijuana (THC) Screen Negative (Cutoff = 50) ng/mL Ethyl Alcohol (Less than 10) mg/dL 03/25/18 03/25/18 03/25/18 Range/Units 19:45 19:45 19:45 WBC (4.3-11.1) K/mcL RBC (4.19-5.50) M/mcL Hgb (12.9-16.9) g/dL Hct (37.5-50.1) % MCV (83.0-100.0) fL MCH (28.0-33.3) pg MCHC (31.6-35.5) g/dL RDW (11.5-14.5) % Plt Count (140-400) K/mcL MPV (9.4-12.4) fL Immature Gran % (0-4) % Seg Neutrophils % % Lymphocytes % % Monocytes % % Eosinophils % % Basophils % % Neutrophils # (1.6-8.9) K/mcL Lymphocytes # (0.6-4.6) K/mcL Monocytes # (0.0-1.3) K/mcL Eosinophils # (0.0-0.6) K/mcL Basophils # (0.0-0.2) K/mcL PT 9.8 (9.4-12.1) Seconds INR 0.9 APTT 25.6 L (26.0-36.0) Seconds Sodium 133 L (136-145) mEq/L Potassium 3.6 (3.5-5.1) mEq/L Chloride 101 (98-107) mEq/L Carbon Dioxide 20 L (23-29) mEq/L BUN 14 (6-20) mg/dL Creatinine 1.22 (0.70-1.30) mg/dL Est GFR ( Amer) > 60 (> 60) Est GFR (Non-Af Amer) > 60 (> 60) BUN/Creatinine Ratio 11 (6-26) Glucose 88 (70-105) mg/dL Calculated Osmolality 276 L (280-300) Calcium 8.9 (8.6-10.3) mg/dL Total Bilirubin 0.3 (0.3-1.0) mg/dL Direct Bilirubin 0.1 (0.0-0.2) mg/dL Indirect Bilirubin 0.2 (0.0-1.2) mg/dL AST 34 (13-39) Units/L ALT 56 H (7-52) Units/L Alkaline Phosphatase 70 (34-104) Units/L Ammonia 42 (16-53) mcmol/L Troponin I < 0.03 (< 0.04) ng/mL Serum Total Protein 6.6 (6.4-8.9) g/dL Albumin 4.2 (3.5-5.7) g/dL Globulin 2.4 (2.4-3.5) g/dL Albumin/Globulin Ratio 1.8 (1.1-2.2) Urine Color (Yellow) Urine Clarity (Clear) Urine pH (5.0-8.0) pH Units Ur Specific [place] (1.010-1.025) Urine Protein (Neg-Trace) mg/dL Urine Glucose (UA) (Normal) mg/dL Urine Ketones (Negative) mg/dL Urine Blood (Negative) Urine Nitrite (Negative) Urine Bilirubin (Negative) Urine Urobilinogen (Normal) mg/dL Ur Leukocyte Esterase (Negative) Ur Culture Indicated? (NO) Salicylates < 2.5 L (15.0-30.0) mg/dL Urine Opiates Screen (Qwsgla=402) ng/mL Acetaminophen < 10 L (10-20) mcg/mL Ur Barbiturates Screen (Zddpuc=464) ng/mL Ur Phencyclidine Scrn (Cutoff=25) ng/mL Ur Amphetamines Screen (Eroetr=4559) ng/mL U Benzodiazepines Scrn (Mjsfkt=985) ng/mL Urine Cocaine Screen (Cutoff= 300) ng/mL U Marijuana (THC) Screen (Cutoff = 50) ng/mL Ethyl Alcohol 213 H (Less than 10) mg/dL - Radiology Data Radiology results reviewed: Yes I reviewed the patient's radiology results. Cervical Spine CT 03/25/18 19:30 IMPRESSION: No acute abnormality of the cervical spine. No acute intracranial abnormality. D/ / Suzanne Townsend Cha, MD / Suzanne Townsend Cha, MD Interpreting Provider: Suzanne Townsend Cha, MD Chest X-Ray 03/25/18 19:30 IMPRESSION: No acute cardiopulmonary disease. D/ / Matt Cook MD / Matt Cook MD Interpreting Provider: Matt Cook MD Head CT 03/25/18 19:30 IMPRESSION: No acute abnormality of the cervical spine. No acute intracranial abnormality. D/ / Suzanne Townsend Cha, MD / Suzanne Townsend Cha, MD Interpreting Provider: Suzanne Townsend Cha, MD - EKG Data EKG #1 EKG attestation: Yes I reviewed and interpreted this EKG. EKG results narrative: EKG showed a sinus rhythm at a rate of 74 bpm, CO interval of 175, curative duration of 95, QTC of 398 with a normal axis. There is no evidence of STEMI on EKG. However there are some T-wave inversions in lead 3. These seem to be present on previous EKG on 01/10/17 which showed sinus tachycardia at a rate of 122 bpm.
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
[2018-03-25 19:48] LABS: Bilirubin,Urine Negative (Negative); Blood,Urine Negative (Negative); Clarity,Urine Clear (Clear); Color,Urine Yellow (Yellow); Glucose,Urine (UA) Normal (Normal); Ketones,Urine Negative (Negative); Leukocyte Esterase,Urine Negative (Negative); Nitrite,Urine Negative (Negative); Protein,Urine Negative (Neg-Trace); Specific Gravity,Urine 1.017 (1.010-1.025); Urobilinogen,Urine Normal (Normal)
[2018-03-25 19:55] LABS: Amphetamine Screen,Urine Negative ng/mL (Cutoff=1000); Barbiturate Screen,Urine Negative ng/mL (Cutoff=200); Benzodiazepines Screen,Urine Positive ng/mL (Cutoff=200); Cannabinoid Screen,Urine Negative ng/mL (Cutoff = 50); Cocaine Screen,Urine Negative ng/mL (Cutoff= 300); Opiate Screen,Urine Negative ng/mL (Cutoff=300); Phencyclidine Screen,Urine Negative ng/mL (Cutoff=25)
[2018-03-25 19:57] LABS: Eosinophils % 1.2 %; Hematocrit 37.2 % (37.5-50.1); Hemoglobin 13.2 g/dL (12.9-16.9); Immature Granulocytes % 0.6 % (0-4); Lymphocytes % 21.9 %; Mean Corpuscular HGB Conc 35.5 g/dL (31.6-35.5); Mean Corpuscular Hemoglobin 32.7 pg (28.0-33.3); Mean Corpuscular Volume 92.1 fL (83.0-100.0); Mean Platelet Volume 9.2 fL (9.4-12.4); Monocytes % 5.5 %; Platelet Count 280 K/mcL (140-400); Red Blood Count 4.04 M/mcL (4.19-5.50); Red Cell Distribution Width 11.9 % (11.5-14.5); Segmented Neutrophils % 70.2 %
[2018-03-25 19:58] LABS: Basophils # 0.1 K/mcL (0.0-0.2); Basophils % 0.6 %; Eosinophils # 0.1 K/mcL (0.0-0.6); Lymphocytes # 2.1 K/mcL (0.6-4.6); Monocytes # 0.5 K/mcL (0.0-1.3); Neutrophils # 6.7 K/mcL (1.6-8.9)
[2018-03-25 20:04] LABS: INR 0.9; Prothrombin Time 9.8 Seconds (9.4-12.1)
[2018-03-25 20:07] LABS: Activated Partial Thrombo Time 25.6 Seconds (26.0-36.0)
[2018-03-25 20:20] LABS: Troponin I < 0.03 ng/mL (< 0.04)
[2018-03-25 20:22] LABS: Acetaminophen < 10 mcg/mL (10-20)
[2018-03-25 20:24] LABS: Alanine Aminotransferase 56 Units/L (7-52); Albumin 4.2 g/dL (3.5-5.7); Albumin/Globulin Ratio 1.8 (1.1-2.2); Alkaline Phosphatase 70 Units/L (34-104); Aspartate Amino Transferase 34 Units/L (13-39); BUN/Creatinine Ratio 11 (6-26); Bilirubin,Direct 0.1 mg/dL (0.0-0.2); Bilirubin,Indirect 0.2 mg/dL (0.0-1.2); Bilirubin,Total 0.3 mg/dL (0.3-1.0); Blood Urea Nitrogen 14 mg/dL (6-20); Calcium 8.9 mg/dL (8.6-10.3); Carbon Dioxide 20 mEq/L (23-29); Chloride 101 mEq/L (98-107); Ethanol 213 mg/dL (Less than 10); Globulin 2.4 g/dL (2.4-3.5); Glucose 88 mg/dL (70-105); Osmolality,Calculated 276 (280-300); Potassium 3.6 mEq/L (3.5-5.1); Salicylate < 2.5 mg/dL (15.0-30.0); Sodium 133 mEq/L (136-145); Total Protein 6.6 g/dL (6.4-8.9); eGFR For African Americans > 60 (> 60); eGFR For Non-African Americans > 60 (> 60)
[2018-03-25] MEDS ORDERED: Nicotine 14 MG PATCH.TD24 TD SCH (20:45)
[2018-03-25] MEDS ORDERED: Nicotine 14 MG PATCH.TD24 TD ONE (20:46)
[2018-03-25] MEDS ORDERED: *HR* LORazepam 1 MG TABLET PO ONE (21:20)
[2018-03-25] MEDS ORDERED: *HR* LORazepam 0.5 MG TABLET ONE (21:25)
[2018-03-25] MEDS ORDERED: *HR* LORazepam 2 MG/ML VIAL IM STA (22:31)
[2018-03-25] MEDS ORDERED: *HR* LORazepam 2 MG/ML VIAL IVP PRN ×2 (23:41)
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
[2018-03-25] MEDS ORDERED: Naloxone 0.4 MG/ML INJ IVP PRN (23:42)
[2018-03-26] MEDS ORDERED: *HR* LORazepam 2 MG/ML VIAL IVP PRN ×4 (01:05→11:16)
[2018-03-26] MEDS: Acetaminophen 325 MG TABLET PO PRN (01:25)
[2018-03-26 01:41] LABS: Basophils # 0.1 K/mcL (0.0-0.2); Basophils % 0.7 %; Eosinophils # 0.2 K/mcL (0.0-0.6); Eosinophils % 1.7 %; Hemoglobin 13.5 g/dL (12.9-16.9); Immature Granulocytes % 0.9 % (0-4); Lymphocytes # 2.8 K/mcL (0.6-4.6); Lymphocytes % 31.8 %; Mean Corpuscular HGB Conc 35.5 g/dL (31.6-35.5); Mean Corpuscular Hemoglobin 32.8 pg (28.0-33.3); Mean Corpuscular Volume 92.2 fL (83.0-100.0); Mean Platelet Volume 9.5 fL (9.4-12.4); Monocytes # 0.5 K/mcL (0.0-1.3); Neutrophils # 5.1 K/mcL (1.6-8.9); Platelet Count 269 K/mcL (140-400); Red Blood Count 4.12 M/mcL (4.19-5.50); Red Cell Distribution Width 11.9 % (11.5-14.5); Segmented Neutrophils % 58.9 %
[2018-03-26 01:58] LABS: BUN/Creatinine Ratio 12 (6-26); Blood Urea Nitrogen 13 mg/dL (6-20); Calcium 9.4 mg/dL (8.6-10.3); Carbon Dioxide 23 mEq/L (23-29); Chloride 104 mEq/L (98-107); Glucose 82 mg/dL (70-105); Magnesium 2.3 mg/dL (1.6-2.6); Osmolality,Calculated 283 (280-300); Potassium 3.7 mEq/L (3.5-5.1); Sodium 137 mEq/L (136-145); eGFR For African Americans > 60 (> 60); eGFR For Non-African Americans > 60 (> 60)
[2018-03-26] MEDS: *HR* Heparin 5,000 UNIT/ML VIAL SQ SCH ×3 (06:36→21:14)
[2018-03-26] MEDS: amLODIPine 5 MG TABLET PO SCH (08:57)
[2018-03-26] MEDS: Vitamin B Complex/Vit C/Vit E 1 EACH TABLET PO SCH (08:57)
[2018-03-26] MEDS: Folic Acid 1 MG TABLET PO SCH (08:57)
[2018-03-26] MEDS: Lisinopril-HCTZ 20-12.5mg TABLET PO SCH (08:57)
[2018-03-26] MEDS: OXcarbazepine 150 MG TABLET PO SCH ×2 (08:57→21:14)
[2018-03-26] MEDS: Thiamine (B-1) 100 MG TABLET PO SCH (08:57)
--- NOTE | 2018-03-26 13:48 | Consult Note ---
Date of Encounter: 03/26/18 Time of Encounter: 13:00 Assessment & Recommendation (1) Alcohol withdrawal Current visit: No Status: Resolved Qualifiers: Complication of substance-induced condition: uncomplicated Qualified Code(s ): F10.230 - Alcohol dependence with withdrawal, uncomplicated (2) Major depressive disorder, single episode, unspecified Current visit: No Status: Chronic Qualifiers: Active/Remission status: currently active Major depression episode severity : severe Psychotic features: without psychotic features Qualified Code(s): F32.2 - Major depressive disorder, single episode, severe without psychotic features History of Present Illness Patient: known to practice within the last 3 years Requesting Physician: Rahul Arboleda MD Reason for consult: patient wants to History of present illness: Mr. St is a 43 year old male consulted today as he wants to . Patient was consulted on 03/20 for depression and alcohol use disorder, it was recommended after withdrawal stabilization to refer to inpatient rehab which was done and was found by EMS on the side of the road and bought to ED. seen at his bedside today. During this admission , he is irritable, anxious and upset about being pink slipped as he made remark that he wants to , states i just made a stupid comment and states he went to rehab and it did look appealing to him so he left and got intoxicated. He stated all i want is help and i just made a comment, he is impulsive and angry , when he was told he will remain on pink slip he got upset and did not talk more. A/P Alcohol withdrawal stabilization Alcohol use disorder. Depression nos/suicidal thought REC: continue 1;1 For safety as high risk secondary to depression, impulsivity and poor decision making. continue escitalopram 10 mg , and trileptal 150 mg bid for moods and he has h/o DT . Will follow up Thank you for consult and involving us in your patients care. CC: Rahul Arboleda MD Past Med Surg Social Fam HX - Past Medical History Medical history: hypertension - Past Psychiatric History Psychiatric history: Reports: depression Family psychiatric history: No Family History of Suicide: None - Past Surgical History Surgical History: appendectomy, other - Social History Smoking Status: Current every day smoker Smokeless Tobacco Status: Yes Alcohol use: heavy, recent Drug use: none - Family History Maternal Grandmother Living Status: Hx Family Cardiac Disorders: Yes Hx Family Respiratory Disorders: No Hx Family Cancer: No Hx Family GI Disorders: Yes Hx Family Endocrine Disorder: No Hx Family Neurologic Disorders: Yes Medications & Allergies Meloxicam 15 mg PO DAILY 03/14/18 [History] Omeprazole [PriLOSEC] 20 mg PO DAILY 03/14/18 [History] hydrOXYzine pamoate [HydrOXYzine Pamoate] 50 mg PO QID PRN 03/14/18 [History] Chlordiazepoxide [Librium] See Taper PO TID 6 Days #14 capsule 03/25/18 [Rx] Escitalopram [Lexapro] 10 mg PO DAILY #30 tablet 03/25/18 [Rx] Lisinopril-HCTZ 20-12.5 [Prinzide 20-12.5] 1 tab PO DAILY 30 Days #30 03/25/18 [ Rx] OXcarbazepine [Trileptal] 150 mg PO BID #60 tablet 03/25/18 [Rx] amLODIPine [Norvasc] 5 mg PO DAILY 30 Days #30 tablet 03/25/18 [Rx] 3 Allergy/AdvReac Type Severity Reaction Status Date / Time No Known Allergies Allergy Verified 03/18/18 09:32 Review of Systems Psychiatric: Reports: depression, anxiety, suicidal ideation, irritability Psychiatry Exam - Constitutional Vitals: Temp Pulse Resp BP Pulse Ox 97.4 F L 70 17 113/70 97 03/26/18 11:22 03/26/18 11:22 03/26/18 11:22 03/26/18 11:22 03/26/18 11:22 General appearance: age & developmentally appropriate, well-groomed, well- nourished - Psychiatric Patient Orientation: Yes Person, Yes Time, Yes Place Level of alertness: Alert Behavior: anxious Eye Contact: Minimal Contact Mood Description: Depressed, Anxious, Irritable Affect description: congruent with mood Speech Volume: Normal Speech pattern: coherent Language & Vocabulary: consistent with education Thought Process: Linear, Goal Oriented Thought Content: Yes Guilt (he denied suicidal ideation but remains impulsive depress and high risk.) Perceptual Disturbances: No Auditory hallucinations, No Visual hallucinations Attention Span Ability: Capable of Focused Attention Memory Description: Grossly Intact Fund of knowledge: Yes average Intelligence Estimate: Average Judgment: Limited Insight: Partial Results - Labs Labs: Laboratory Last Values WBC 8.7 K/mcL (4.3-11.1) 05/04/18 00:52 RBC 4.12 M/mcL (4.19-5.50) L 03/26/18 00:52 Hgb 13.5 g/dL (12.9-16.9) 03/26/18 00:52 Hct 38.0 % (37.5-50.1) 03/26/18 00:52 MCV 92.2 fL (83.0-100.0) 03/26/18 00:52 MCH 32.8 pg (28.0-33.3) 03/26/18 00:52 MCHC 35.5 g/dL (31.6-35.5) 03/26/18 00:52 RDW 11.9 % (11.5-14.5) 03/26/18 00:52 Plt Count 269 K/mcL (140-400) 03/26/18 00:52 MPV 9.5 fL (9.4-12.4) 03/26/18 00:52 Immature Gran % 0.9 % (0-4) 03/26/18 00:52 Seg Neutrophils % 58.9 % 03/26/18 00:52 Lymphocytes % 31.8 % 03/26/18 00:52 Monocytes % 6.0 % 03/26/18 00:52 Eosinophils % 1.7 % 03/26/18 00:52 Basophils % 0.7 % 03/26/18 00:52 Neutrophils # 5.1 K/mcL (1.6-8.9) 03/26/18 00:52 Lymphocytes # 2.8 K/mcL (0.6-4.6) 03/26/18 00:52 Monocytes # 0.5 K/mcL (0.0-1.3) 03/26/18 00:52 Eosinophils # 0.2 K/mcL (0.0-0.6) 03/26/18 00:52 Basophils # 0.1 K/mcL (0.0-0.2) 03/26/18 00:52 PT 9.8 Seconds (9.4-12.1) 03/25/18 19:45 INR 0.9 03/25/18 19:45 APTT 25.6 Seconds (26.0-36.0) L 03/25/18 19:45 Sodium 137 mEq/L (136-145) 03/26/18 00:52 Potassium 3.7 mEq/L (3.5-5.1) 03/26/18 00:52 Chloride 104 mEq/L (98-107) 03/26/18 00:52 Carbon Dioxide 23 mEq/L (23-29) 03/26/18 00:52 BUN 13 mg/dL (6-20) 03/26/18 00:52 Creatinine 1.09 mg/dL (0.70-1.30) 03/26/18 00:52 Est GFR ( Amer) > 60 (> 60) 03/26/18 00:52 Est GFR (Non-Af Amer) > 60 (> 60) 03/26/18 00:52 BUN/Creatinine Ratio 12 (6-26) 03/26/18 00:52 Glucose 82 mg/dL (70-105) 03/26/18 00:52 POC Glucose 90 mg/dL (70-99) 03/25/18 19:26 Calculated Osmolality 283 (280-300) 03/26/18 00:52 Calcium 9.4 mg/dL (8.6-10.3) 03/26/18 00:52 Magnesium 2.3 mg/dL (1.6-2.6) 03/26/18 00:52 Total Bilirubin 0.3 mg/dL (0.3-1.0) 03/25/18 19:45 Direct Bilirubin 0.1 mg/dL (0.0-0.2) 03/25/18 19:45 Indirect Bilirubin 0.2 mg/dL (0.0-1.2) 03/25/18 19:45 AST 34 Units/L (13-39) 03/25/18 19:45 ALT 56 Units/L (7-52) H 03/25/18 19:45 Alkaline Phosphatase 70 Units/L (34-104) 03/25/18 19:45 Ammonia 42 mcmol/L (16-53) 03/25/18 19:45 Troponin I < 0.03 ng/mL (< 0.04) 03/25/18 19:45 Serum Total Protein 6.6 g/dL (6.4-8.9) 03/25/18 19:45 Albumin 4.2 g/dL (3.5-5.7) 05/03/18 19:45 Globulin 2.4 g/dL (2.4-3.5) 03/25/18 19:45 Albumin/Globulin Ratio 1.8 (1.1-2.2) 03/25/18 19:45 Urine Color Yellow (Yellow) 03/25/18 19:20 Urine Clarity Clear (Clear) 03/25/18 19:20 Urine pH 6.0 pH Units (5.0-8.0) 03/25/18 19:20 Ur Specific [place] 1.017 (1.010-1.025) 03/25/18 19:20 Urine Protein Negative mg/dL (Neg-Trace) 03/25/18 19:20 Urine Glucose (UA) Normal mg/dL (Normal) 03/25/18 19:20 Urine Ketones Negative mg/dL (Negative) 03/25/18 19:20 Urine Blood Negative (Negative) 03/25/18 19:20 Urine Nitrite Negative (Negative) 03/25/18 19:20 Urine Bilirubin Negative (Negative) 03/25/18 19:20 Urine Urobilinogen Normal mg/dL (Normal) 03/25/18 19:20 Ur Leukocyte Esterase Negative (Negative) 03/25/18 19:20 Ur Culture Indicated? NO (NO) 03/25/18 19:20 Salicylates < 2.5 mg/dL (15.0-30.0) L 03/25/18 19:45 Urine Opiates Screen Negative ng/mL (Xddgqh=997) 03/25/18 19:20 Acetaminophen < 10 mcg/mL (10-20) L 03/25/18 19:45 Ur Barbiturates Screen Negative ng/mL (Tziahd=894) 03/25/18 19:20 Ur Phencyclidine Scrn Negative ng/mL (Cutoff=25) 03/25/18 19:20 Ur Amphetamines Screen Negative ng/mL (Sbmfyf=3043) 03/25/18 19:20 U Benzodiazepines Scrn Positive ng/mL (Ujdfwc=430) H 03/25/18 19:20 Urine Cocaine Screen Negative ng/mL (Cutoff= 300) 03/25/18 19:20 U Marijuana (THC) Screen Negative ng/mL (Cutoff = 50) 03/25/18 19:20 Ethyl Alcohol 213 mg/dL (Less than 10) H 03/25/18 19:45 Consult Discharge Plan - Plan Referrals: NONE,PCP [Primary Care Provider] -
--- NOTE | 2018-03-26 14:54 | Internal Med Progress Note ---
Date of Encounter: 03/26/18 Time of Encounter: 08:15 - Assessment and plan (1) Alcohol withdrawal Current Visit: Yes Status: Suspected Assessment and plan: Monitoring for signs of alcohol withdrawal. Patient has had prior episodes of delirium. We will continue monitoring per [facility] protocol. On Ativan as needed. Also receiving Librium orally. Qualifiers: Complication of substance-induced condition: uncomplicated Qualified Code(s ): F10.230 - Alcohol dependence with withdrawal, uncomplicated (2) Alcoholic intoxication Current Visit: Yes Status: Resolved Assessment and plan: Monitoring for signs of withdrawal. On [facility] protocol Qualifiers: Complication of substance-induced condition: uncomplicated Qualified Code(s ): F10.920 - Alcohol use, unspecified with intoxication, uncomplicated (3) Hypertension Current Visit: Yes Status: Chronic Assessment and plan: Blood pressure well controlled at this time Qualifiers: Hypertension type: essential hypertension Qualified Code(s): I10 - Essential (primary) hypertension (4) Suicidal ideation Current Visit: Yes Status: Acute Assessment and plan: Denies suicidal ideation. Awaiting evaluation by psychiatry. (5) Depression Current Visit: Yes Status: Acute Assessment and plan: Awaiting psychiatric evaluation. Patient does appear to be depressed. Continue Lexapro Qualifiers: Depression Type: major depressive disorder Major depression recurrence: single episode Active/Remission status: currently active Major depression episode severity: severe Psychotic features: without psychotic features Qualified Code(s): F32.2 - Major depressive disorder, single episode, severe without psychotic features (6) DVT prophylaxis Current Visit: Yes Status: Acute Assessment and plan: On subcutaneous heparin - Time Spent With Patient Total time spent is greater than 50% in coordination of care (as documented) at patient's floor/unit and/or counseling patient: - Subjective Interval history: Patient very angry and agitated this morning complaining that he was unnecessarily pink slipped on Rocephin and common that he made while he was drunk. Denies any suicidal ideation at this time. - Constitutional Vitals: Temp Pulse Resp BP Pulse Ox 97.6 F 81 17 117/69 97 03/26/18 14:48 03/26/18 14:48 03/26/18 14:48 03/26/18 14:48 03/26/18 14:48 General appearance: Present: A&O X 3, answers questions appropriately - Neck Neck exam general surgery: Present: supple, trachea midline. Absent: lymphadenopathy - Respiratory Respiratory exam: Present: CTAB. Absent: accessory muscle use, rales, rhonchi, wheezes - Cardiovascular Cardiovascular exam: Present: RRR, +S1, +S2. Absent: diastolic murmur, gallop, rubs, systolic murmur - GI/Abdominal GI/Abdominal exam: Present: normal bowel sounds, soft, no peritoneal signs. Absent: distended, tenderness - Extremities Exam Extremities exam: Present: warm, radial pulses palpable and symmetrical. Absent : calf tenderness, cyanotic, pedal edema - Psychiatric Psychiatric exam: Present: agitated, flat affect. Absent: suicidal ideation Internal Medicine: Result - Labs CBC & Chem 7: 03/26/18 00:52 03/26/18 00:52 Labs: Short CBC 03/26/18 Range/Units 00:52 WBC 8.7 (4.3-11.1) K/mcL Hgb 13.5 (12.9-16.9) g/dL Hct 38.0 (37.5-50.1) % Plt Count 269 (140-400) K/mcL Neutrophils # 5.1 (1.6-8.9) K/mcL BMP 03/26/18 00:52 Sodium 137 Potassium 3.7 Chloride 104 Carbon Dioxide 23 BUN 13 Creatinine 1.09 Glucose 82 Calcium 9.4 - ABG Interpretation ABG results: PT/INR, D-dimer PT 9.8 Seconds (9.4-12.1) 03/25/18 19:45 Consult Discharge Plan - Plan Referrals: NONE,PCP [Primary Care Provider] -
[2018-03-26] MEDS: Nicotine 21 MG PATCH.TD24 TD SCH (15:19)
[2018-03-26] MEDS: hydrOXYzine pamoate 25 MG CAPSULE PO PRN (15:19)
[2018-03-26] MEDS ORDERED: diazePAM 10 MG/2 ML SYRINGE IVP PRN (15:50)
[2018-03-26] MEDS: diazePAM 10 MG/2 ML SYRINGE IVP PRN ×2 (16:21→21:14)
[2018-03-27] MEDS: hydrOXYzine pamoate 25 MG CAPSULE PO PRN ×3 (00:22→19:59)
[2018-03-27] MEDS: diazePAM 10 MG/2 ML SYRINGE IVP PRN ×4 (01:11→18:27)
[2018-03-27] MEDS: *HR* Heparin 5,000 UNIT/ML VIAL SQ SCH ×3 (06:19→22:27)
--- NOTE | 2018-03-27 06:25 | Electrocardiograph Report ---
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
[2018-03-27] MEDS: amLODIPine 5 MG TABLET PO SCH (08:53)
[2018-03-27] MEDS: Thiamine (B-1) 100 MG TABLET PO SCH (08:53)
[2018-03-27] MEDS: OXcarbazepine 150 MG TABLET PO SCH ×2 (08:53→19:59)
[2018-03-27] MEDS: Lisinopril-HCTZ 20-12.5mg TABLET PO SCH (08:53)
[2018-03-27] MEDS: Vitamin B Complex/Vit C/Vit E 1 EACH TABLET PO SCH (08:54)
[2018-03-27] MEDS: Folic Acid 1 MG TABLET PO SCH (08:54)
[2018-03-27] MEDS: Nicotine 21 MG PATCH.TD24 TD SCH (08:54)
--- NOTE | 2018-03-27 13:30 | Consult Note ---
Date of Encounter: 03/27/18 Time of Encounter: 12:40 Assessment & Recommendation (1) Alcohol withdrawal Current visit: Yes Status: Suspected Qualifiers: Complication of substance-induced condition: uncomplicated Qualified Code(s ): F10.230 - Alcohol dependence with withdrawal, uncomplicated (2) Major depressive disorder, single episode, unspecified Current visit: No Status: Chronic Assessment & Recommendation: continue medication , patient not suicidal or homicidal, not danger to self Qualifiers: Active/Remission status: currently active Major depression episode severity : severe Psychotic features: without psychotic features Qualified Code(s): F32.2 - Major depressive disorder, single episode, severe without psychotic features History of Present Illness Patient: known to practice within the last 3 years Requesting Physician: Rahul Arboleda MD Reason for consult: follow up History of present illness: Mr. St is a 43 year old male was seen today at his bedside for folow up. He is cooperative and calm today , he states he wants help and wants to give another chance to inpatient rehab. he denies any suicidal ideation and states when he made that comment he was intoxicated, he states i did not mean it , i have children all i want is help. and really i need a programme so i can be sober. he remains depress but feels hopeful and looking forward to his treatment in rehab. he denies any psychosis or juan. A/P alcohol withdrawal stabilization. depressin nos REC : Patient is not in gdanger to self/others therefore no sitter needed at present . inpatient rehab once medically stable. continue escitalopram 10 mg and trileptal 150 mg bid. thank you for consult and involving us in his care, please call again if needed. CC: Rahul Arboleda MD Past Med Surg Social Fam HX - Past Medical History Medical history: hypertension - Past Psychiatric History Psychiatric history: Reports: no psych history Family psychiatric history: No Family History of Suicide: None - Past Surgical History Surgical History: appendectomy, other - Social History Smoking Status: Current every day smoker Smokeless Tobacco Status: Yes Alcohol use: heavy, recent Drug use: none - Family History Maternal Grandmother Living Status: Hx Family Cardiac Disorders: Yes Hx Family Respiratory Disorders: No Hx Family Cancer: No Hx Family GI Disorders: Yes Hx Family Endocrine Disorder: No Hx Family Neurologic Disorders: Yes Medications & Allergies Meloxicam 15 mg PO DAILY 03/14/18 [History] Omeprazole [PriLOSEC] 20 mg PO DAILY 03/14/18 [History] hydrOXYzine pamoate [HydrOXYzine Pamoate] 50 mg PO QID PRN 03/14/18 [History] Chlordiazepoxide [Librium] See Taper PO TID 6 Days #14 capsule 03/25/18 [Rx] Escitalopram [Lexapro] 10 mg PO DAILY #30 tablet 03/25/18 [Rx] Lisinopril-HCTZ 20-12.5 [Prinzide 20-12.5] 1 tab PO DAILY 30 Days #30 03/25/18 [ Rx] OXcarbazepine [Trileptal] 150 mg PO BID #60 tablet 03/25/18 [Rx] amLODIPine [Norvasc] 5 mg PO DAILY 30 Days #30 tablet 03/25/18 [Rx] 3 Allergy/AdvReac Type Severity Reaction Status Date / Time No Known Allergies Allergy Verified 03/18/18 09:32 Review of Systems Psychiatric: Reports: depression, anxiety Psychiatry Exam - Constitutional Vitals: Temp Pulse Resp BP Pulse Ox 97.9 F 84 16 131/90 95 03/27/18 12:12 03/27/18 12:12 03/27/18 12:12 03/27/18 12:12 03/27/18 12:12 General appearance: age & developmentally appropriate, well-groomed, well- nourished - Musculoskeletal Station: other Strength & Tone: normal for patient - Psychiatric Patient Orientation: Yes Person, Yes Time, Yes Place Level of alertness: Alert Behavior: cooperative, anxious Eye Contact: Maintains Eye Contact Mood Description: Anxious Affect description: congruent with mood Speech Volume: Normal Speech pattern: normal rate, normal rhythm, normal tone, fluent, spontaneous Language & Vocabulary: consistent with education Thought Process: Linear, Goal Oriented Thought Content: No Suicidal ideation, No Homicidal ideation, No Overt delusions Perceptual Disturbances: No Auditory hallucinations, No Visual hallucinations Attention Span Ability: Capable of Focused Attention Memory Description: Grossly Intact Patient Reliability: Reliable Historian Fund of knowledge: Yes abstraction ability, Yes aware of current events Intelligence Estimate: Average Judgment: Fair Insight: Partial Results - Labs Labs: Laboratory Last Values WBC 8.7 K/mcL (4.3-11.1) 03/26/18 00:52 RBC 4.12 M/mcL (4.19-5.50) L 03/26/18 00:52 Hgb 13.5 g/dL (12.9-16.9) 03/26/18 00:52 Hct 38.0 % (37.5-50.1) 03/26/18 00:52 MCV 92.2 fL (83.0-100.0) 03/26/18 00:52 MCH 32.8 pg (28.0-33.3) 03/26/18 00:52 MCHC 35.5 g/dL (31.6-35.5) 03/26/18 00:52 RDW 11.9 % (11.5-14.5) 03/26/18 00:52 Plt Count 269 K/mcL (140-400) 03/26/18 00:52 MPV 9.5 fL (9.4-12.4) 03/26/18 00:52 Immature Gran % 0.9 % (0-4) 03/26/18 00:52 Seg Neutrophils % 58.9 % 03/26/18 00:52 Lymphocytes % 31.8 % 03/26/18 00:52 Monocytes % 6.0 % 03/26/18 00:52 Eosinophils % 1.7 % 03/26/18 00:52 Basophils % 0.7 % 03/26/18 00:52 Neutrophils # 5.1 K/mcL (1.6-8.9) 03/26/18 00:52 Lymphocytes # 2.8 K/mcL (0.6-4.6) 03/26/18 00:52 Monocytes # 0.5 K/mcL (0.0-1.3) 03/26/18 00:52 Eosinophils # 0.2 K/mcL (0.0-0.6) 03/26/18 00:52 Basophils # 0.1 K/mcL (0.0-0.2) 03/26/18 00:52 PT 9.8 Seconds (9.4-12.1) 03/25/18 19:45 INR 0.9 03/25/18 19:45 APTT 25.6 Seconds (26.0-36.0) L 03/25/18 19:45 Sodium 137 mEq/L (136-145) 03/26/18 00:52 Potassium 3.7 mEq/L (3.5-5.1) 03/26/18 00:52 Chloride 104 mEq/L (98-107) 03/26/18 00:52 Carbon Dioxide 23 mEq/L (23-29) 03/26/18 00:52 BUN 13 mg/dL (6-20) 03/26/18 00:52 Creatinine 1.09 mg/dL (0.70-1.30) 03/26/18 00:52 Est GFR ( Amer) > 60 (> 60) 03/26/18 00:52 Est GFR (Non-Af Amer) > 60 (> 60) 03/26/18 00:52 BUN/Creatinine Ratio 12 (6-26) 03/26/18 00:52 Glucose 82 mg/dL (70-105) 03/26/18 00:52 POC Glucose 96 mg/dL (70-99) 03/25/18 23:08 Calculated Osmolality 283 (280-300) 03/26/18 00:52 Calcium 9.4 mg/dL (8.6-10.3) 03/26/18 00:52 Magnesium 2.3 mg/dL (1.6-2.6) 03/26/18 00:52 Total Bilirubin 0.3 mg/dL (0.3-1.0) 03/25/18 19:45 Direct Bilirubin 0.1 mg/dL (0.0-0.2) 03/25/18 19:45 Indirect Bilirubin 0.2 mg/dL (0.0-1.2) 03/25/18 19:45 AST 34 Units/L (13-39) 03/25/18 19:45 ALT 56 Units/L (7-52) H 03/25/18 19:45 Alkaline Phosphatase 70 Units/L (34-104) 03/25/18 19:45 Ammonia 42 mcmol/L (16-53) 03/25/18 19:45 Troponin I < 0.03 ng/mL (< 0.04) 03/25/18 19:45 Serum Total Protein 6.6 g/dL (6.4-8.9) 03/25/18 19:45 Albumin 4.2 g/dL (3.5-5.7) 03/25/18 19:45 Globulin 2.4 g/dL (2.4-3.5) 03/25/18 19:45 Albumin/Globulin Ratio 1.8 (1.1-2.2) 03/25/18 19:45 Urine Color Yellow (Yellow) 03/25/18 19:20 Urine Clarity Clear (Clear) 03/25/18 19:20 Urine pH 6.0 pH Units (5.0-8.0) 03/25/18 19:20 Ur Specific [place] 1.017 (1.010-1.025) 03/25/18 19:20 Urine Protein Negative mg/dL (Neg-Trace) 03/25/18 19:20 Urine Glucose (UA) Normal mg/dL (Normal) 03/25/18 19:20 Urine Ketones Negative mg/dL (Negative) 03/25/18 19:20 Urine Blood Negative (Negative) 03/25/18 19:20 Urine Nitrite Negative (Negative) 03/25/18 19:20 Urine Bilirubin Negative (Negative) 03/25/18 19:20 Urine Urobilinogen Normal mg/dL (Normal) 03/25/18 19:20 Ur Leukocyte Esterase Negative (Negative) 03/25/18 19:20 Ur Culture Indicated? NO (NO) 03/25/18 19:20 Salicylates < 2.5 mg/dL (15.0-30.0) L 03/25/18 19:45 Urine Opiates Screen Negative ng/mL (Tcooqk=084) 03/25/18 19:20 Acetaminophen < 10 mcg/mL (10-20) L 03/25/18 19:45 Ur Barbiturates Screen Negative ng/mL (Xybgpc=692) 03/25/18 19:20 Ur Phencyclidine Scrn Negative ng/mL (Cutoff=25) 03/25/18 19:20 Ur Amphetamines Screen Negative ng/mL (Tsfxxh=4995) 03/25/18 19:20 U Benzodiazepines Scrn Positive ng/mL (Wjtpoh=858) H 03/25/18 19:20 Urine Cocaine Screen Negative ng/mL (Cutoff= 300) 03/25/18 19:20 U Marijuana (THC) Screen Negative ng/mL (Cutoff = 50) 03/25/18 19:20 Ethyl Alcohol 213 mg/dL (Less than 10) H 03/25/18 19:45 Consult Discharge Plan - Plan Referrals: NONE,PCP [Primary Care Provider] -
--- NOTE | 2018-03-27 14:59 | Internal Med Progress Note ---
Date of Encounter: 03/27/18 Time of Encounter: 10:15 - Assessment and plan (1) Alcohol withdrawal Current Visit: Yes Status: Acute Assessment and plan: Continue treatment for alcohol withdrawal. Patient receiving Valium per CIWA protocol. Continue Librium scheduled dose. High risk for complications as patient is currently still going through withdrawal Qualifiers: Complication of substance-induced condition: uncomplicated Qualified Code(s ): F10.230 - Alcohol dependence with withdrawal, uncomplicated (2) Alcoholic intoxication Current Visit: Yes Status: Resolved Qualifiers: Complication of substance-induced condition: uncomplicated Qualified Code(s ): F10.920 - Alcohol use, unspecified with intoxication, uncomplicated (3) Hypertension Current Visit: Yes Status: Chronic Assessment and plan: Blood pressure is well controlled Qualifiers: Hypertension type: essential hypertension Qualified Code(s): I10 - Essential (primary) hypertension (4) Suicidal ideation Current Visit: Yes Status: Resolved Assessment and plan: Will follow up with psychiatric recommendations. Sitter present at bedside (5) Depression Current Visit: Yes Status: Acute Assessment and plan: Remains depressed. Continue Lexapro. Also on Trileptal at baseline for anxiety. Qualifiers: Depression Type: major depressive disorder Major depression recurrence: single episode Active/Remission status: currently active Major depression episode severity: severe Psychotic features: without psychotic features Qualified Code(s): F32.2 - Major depressive disorder, single episode, severe without psychotic features (6) DVT prophylaxis Current Visit: Yes Status: Acute Assessment and plan: On subcutaneous heparin - Time Spent With Patient Total time spent is greater than 50% in coordination of care (as documented) at patient's floor/unit and/or counseling patient: - Subjective Interval history: Patient is calm this morning. Lying in bed. Somnolent. Easily awakes. Denies any suicidal ideation. Reports that his current CIRI protocol is working well. - Constitutional Vitals: Temp Pulse Resp BP Pulse Ox 97.9 F 93 20 128/79 99 03/27/18 12:12 03/27/18 14:08 03/27/18 14:08 03/27/18 14:08 03/27/18 14:08 General appearance: Present: cooperative, A&O X 3, answers questions appropriately - Neck Neck exam general surgery: Present: supple, trachea midline. Absent: lymphadenopathy - Respiratory Respiratory exam: Present: CTAB. Absent: accessory muscle use, rales, rhonchi, wheezes - Cardiovascular Cardiovascular exam: Present: RRR, +S1, +S2. Absent: diastolic murmur, gallop, rubs, systolic murmur - GI/Abdominal GI/Abdominal exam: Present: normal bowel sounds, soft, no peritoneal signs. Absent: distended, tenderness - Extremities Exam Extremities exam: Present: warm, radial pulses palpable and symmetrical. Absent : calf tenderness, cyanotic, pedal edema - Psychiatric Psychiatric exam: Present: anxious. Absent: suicidal ideation Internal Medicine: Result - Labs CBC & Chem 7: 03/26/18 00:52 03/26/18 00:52 - ABG Interpretation ABG results: PT/INR, D-dimer PT 9.8 Seconds (9.4-12.1) 03/25/18 19:45 Consult Discharge Plan - Plan Referrals: NONE,PCP [Primary Care Provider] -
[2018-03-27] MEDS: Acetaminophen 325 MG TABLET PO PRN (15:03)
[2018-03-27] MEDS ORDERED: diazePAM 10 MG/2 ML SYRINGE IVP STA (21:46)
[2018-03-27] MEDS ORDERED: diazePAM 10 MG/2 ML SYRINGE IVP ONE (22:14)
[2018-03-27] MEDS ORDERED: diazePAM 10 MG/2 ML SYRINGE IVP PRN (22:33)
[2018-03-27] MEDS ORDERED: traZODone 50 MG TABLET PO ONE (22:35)
[2018-03-28] MEDS: diazePAM 10 MG/2 ML SYRINGE IVP PRN ×2 (02:03→13:50)
[2018-03-28] MEDS: *HR* Heparin 5,000 UNIT/ML VIAL SQ SCH ×3 (06:38→23:17)
[2018-03-28] MEDS: OXcarbazepine 150 MG TABLET PO SCH ×2 (09:48→19:39)
[2018-03-28] MEDS: Folic Acid 1 MG TABLET PO SCH (09:48)
[2018-03-28] MEDS: Vitamin B Complex/Vit C/Vit E 1 EACH TABLET PO SCH (09:48)
[2018-03-28] MEDS: Thiamine (B-1) 100 MG TABLET PO SCH (09:48)
[2018-03-28] MEDS: amLODIPine 5 MG TABLET PO SCH (09:48)
[2018-03-28] MEDS: Nicotine 21 MG PATCH.TD24 TD SCH (09:48)
[2018-03-28] MEDS: Lisinopril-HCTZ 20-12.5mg TABLET PO SCH (09:50)
--- NOTE | 2018-03-28 12:23 | Internal Med Progress Note ---
Date of Encounter: 03/28/18 Time of Encounter: 09:15 - Assessment and plan (1) Alcohol withdrawal Current Visit: Yes Status: Acute Assessment and plan: Continue management per CIWA protocol. On Valium intravenously as needed. Improving clinically. CIWA score 5 this morning. Continue supportive care. Qualifiers: Complication of substance-induced condition: uncomplicated Qualified Code(s ): F10.230 - Alcohol dependence with withdrawal, uncomplicated (2) Alcoholic intoxication Current Visit: Yes Status: Resolved Qualifiers: Complication of substance-induced condition: uncomplicated Qualified Code(s ): F10.920 - Alcohol use, unspecified with intoxication, uncomplicated (3) Hypertension Current Visit: Yes Status: Chronic Assessment and plan: well-controlled. Qualifiers: Hypertension type: essential hypertension Qualified Code(s): I10 - Essential (primary) hypertension (4) Suicidal ideation Current Visit: Yes Status: Resolved (5) Depression Current Visit: Yes Status: Acute Assessment and plan: Evaluated by psychiatry. Recommended inpatient rehabilitation for alcohol cessation. Continue lexapro Qualifiers: Depression Type: major depressive disorder Major depression recurrence: single episode Active/Remission status: currently active Major depression episode severity: severe Psychotic features: without psychotic features Qualified Code(s): F32.2 - Major depressive disorder, single episode, severe without psychotic features (6) DVT prophylaxis Current Visit: Yes Status: Acute Assessment and plan: On Sq heparin - Time Spent With Patient Total time spent is greater than 50% in coordination of care (as documented) at patient's floor/unit and/or counseling patient: - Subjective Interval history: patient is currently asleep. Awakes easily and follows commands. Feels very tired. He reports that he was unable to sleep much last night. - Constitutional Vitals: Temp Pulse Resp BP Pulse Ox 97.7 F 64 15 115/76 97 03/28/18 11:25 03/28/18 11:25 03/28/18 11:25 03/28/18 11:25 03/28/18 11:25 General appearance: Present: cooperative, answers questions appropriately Exam: Somnolent but easily awakes - Respiratory Respiratory exam: Present: CTAB. Absent: accessory muscle use, rales, rhonchi, wheezes - Cardiovascular Cardiovascular exam: Present: RRR, +S1, +S2. Absent: diastolic murmur, gallop, rubs, systolic murmur - GI/Abdominal GI/Abdominal exam: Present: normal bowel sounds, soft, no peritoneal signs. Absent: distended, tenderness - Extremities Exam Extremities exam: Present: warm, radial pulses palpable and symmetrical. Absent : calf tenderness, cyanotic, pedal edema - Psychiatric Psychiatric exam: Present: depressed, flat affect. Absent: suicidal ideation - Skin Skin exam: Present: dry, intact Internal Medicine: Result - Labs CBC & Chem 7: 03/26/18 00:52 03/26/18 00:52 - ABG Interpretation ABG results: PT/INR, D-dimer PT 9.8 Seconds (9.4-12.1) 03/25/18 19:45 Consult Discharge Plan - Plan Referrals: NONE,PCP [Primary Care Provider] -
--- NOTE | 2018-03-28 14:23 | Event Note ---
Date of Encounter: 03/28/18 Time of Encounter: 14:21 Called to patient's bedside as apparently was having shakes and tremors at for not subsiding despite giving Valium. He had similar symptoms yesterday evening. When I examined the patient he is not delirious. He is able to answer all questions and seems to be voluntarily shaking his upper extremities for secondary gain. I explained to him that he would not get Valium unless he needs it according to [facility] protocol and I stressed that the symptoms that he currently appears to be having are voluntarily and not related to alcohol withdrawal as this seemed to be subsiding when patient is talking to me and when he stretches his arms. After I left the room, patient stood up from his bed and went to the table to grab water to drink. He was noted to not have any shakes or tremors during that time. I strongly believe that the patient is malingering in order to get higher dose of Valium or benzodiazepines and is not having delirium tremens currently.
[2018-03-28] MEDS ORDERED: Nicotine 21 MG PATCH.TD24 TD ONE (15:15)
[2018-03-28] MEDS: traZODone 50 MG TABLET PO PRN (23:16)
[2018-03-28] MEDS: hydrOXYzine pamoate 25 MG CAPSULE PO PRN (23:16)
[2018-03-29] MEDS: *HR* Heparin 5,000 UNIT/ML VIAL SQ SCH ×3 (06:50→20:42)
[2018-03-29] MEDS: Acetaminophen 325 MG TABLET PO PRN (10:07)
[2018-03-29] MEDS: Thiamine (B-1) 100 MG TABLET PO SCH (10:07)
[2018-03-29] MEDS: Lisinopril-HCTZ 20-12.5mg TABLET PO SCH (10:07)
[2018-03-29] MEDS: amLODIPine 5 MG TABLET PO SCH (10:08)
[2018-03-29] MEDS: Folic Acid 1 MG TABLET PO SCH (10:08)
[2018-03-29] MEDS: OXcarbazepine 150 MG TABLET PO SCH ×2 (10:08→20:42)
[2018-03-29] MEDS: Nicotine 21 MG PATCH.TD24 TD SCH (10:08)
[2018-03-29] MEDS: Vitamin B Complex/Vit C/Vit E 1 EACH TABLET PO SCH (10:08)
--- NOTE | 2018-03-29 15:39 | Internal Med Progress Note ---
Date of Encounter: 03/29/18 Time of Encounter: 15:38 - Assessment and plan (1) Alcohol withdrawal Current Visit: Yes Status: Acute Assessment and plan: Continue management per [facility] protocol. Patient wishes to go to alcohol rehabilitation. 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 Possible discharge tomorrow to alcohol rehabilitation. Qualifiers: Complication of substance-induced condition: uncomplicated Qualified Code(s ): F10.230 - Alcohol dependence with withdrawal, uncomplicated (2) Alcoholic intoxication Current Visit: Yes Status: Resolved Assessment and plan: Continue supportive care for chronic alcohol abuse. On thiamine and folic acid. Qualifiers: Complication of substance-induced condition: uncomplicated Qualified Code(s ): F10.920 - Alcohol use, unspecified with intoxication, uncomplicated (3) Hypertension Current Visit: Yes Status: Chronic Assessment and plan: Blood pressure remains well controlled Qualifiers: Hypertension type: essential hypertension Qualified Code(s): I10 - Essential (primary) hypertension (4) Suicidal ideation Current Visit: Yes Status: Resolved (5) Depression Current Visit: Yes Status: Chronic Assessment and plan: Continue Lexapro Qualifiers: Depression Type: major depressive disorder Major depression recurrence: single episode Active/Remission status: currently active Major depression episode severity: severe Psychotic features: without psychotic features Qualified Code(s): F32.2 - Major depressive disorder, single episode, severe without psychotic features (6) DVT prophylaxis Current Visit: Yes Status: Acute Assessment and plan: On subcutaneous heparin - Time Spent With Patient Total time spent is greater than 50% in coordination of care (as documented) at patient's floor/unit and/or counseling patient: - Subjective Interval history: Patient is awake and alert. Feeling better today. Patient is to go to alcohol rehabilitation. Feels anxious intermittently. - Constitutional Vitals: Temp Pulse Resp BP Pulse Ox 98.1 F 77 16 108/70 96 03/29/18 09:54 03/29/18 09:54 03/29/18 09:54 03/29/18 09:54 03/29/18 09:54 General appearance: Present: cooperative, answers questions appropriately - Neck Neck exam general surgery: Present: supple, trachea midline. Absent: lymphadenopathy - Respiratory Respiratory exam: Present: CTAB. Absent: accessory muscle use, rales, rhonchi, wheezes - Cardiovascular Cardiovascular exam: Present: RRR, +S1, +S2. Absent: diastolic murmur, gallop, rubs, systolic murmur - GI/Abdominal GI/Abdominal exam: Present: normal bowel sounds, soft, no peritoneal signs. Absent: distended, tenderness - Neurological Exam Neurological exam: Present: alert, oriented X3, no focal deficits. Absent: facial droop, speech deficit Internal Medicine: Result - Labs CBC & Chem 7: 03/26/18 00:52 03/26/18 00:52 - ABG Interpretation ABG results: PT/INR, D-dimer PT 9.8 Seconds (9.4-12.1) 03/25/18 19:45 Consult Discharge Plan - Plan Referrals: NONE,PCP [Primary Care Provider] -
[2018-03-29] MEDS: traZODone 50 MG TABLET PO PRN (23:09)
[2018-03-29] MEDS: hydrOXYzine pamoate 25 MG CAPSULE PO PRN (23:16)
[2018-03-30] MEDS: *HR* Heparin 5,000 UNIT/ML VIAL SQ SCH ×2 (06:40→14:14)
[2018-03-30] MEDS: Lisinopril-HCTZ 20-12.5mg TABLET PO SCH (08:33)
[2018-03-30] MEDS: Folic Acid 1 MG TABLET PO SCH (08:33)
[2018-03-30] MEDS: Vitamin B Complex/Vit C/Vit E 1 EACH TABLET PO SCH (08:33)
[2018-03-30] MEDS: OXcarbazepine 150 MG TABLET PO SCH (08:33)
[2018-03-30] MEDS: Thiamine (B-1) 100 MG TABLET PO SCH (08:33)
[2018-03-30] MEDS: amLODIPine 5 MG TABLET PO SCH (08:33)
[2018-03-30] MEDS: Nicotine 21 MG PATCH.TD24 TD SCH (08:34)
[2018-03-30 10:59] VITALS: BP 95/60
--- NOTE | 2018-03-30 11:11 | Discharge Summary ---
- NOTES TO OUTPATIENT PROVIDER Notes to Outpatient Provider: Follow up with inpatient alcohol detoxification/ rehab physician at [facility]. Date of Encounter: 03/30/18 Time of Encounter: 11:09 - Discharge Diagnosis (1) Alcohol withdrawal Priority: Primary Status: Acute Qualifiers: Complication of substance-induced condition: uncomplicated Qualified Code(s ): F10.230 - Alcohol dependence with withdrawal, uncomplicated (2) Alcoholic intoxication Priority: Secondary Status: Resolved Qualifiers: Complication of substance-induced condition: uncomplicated Qualified Code(s ): F10.920 - Alcohol use, unspecified with intoxication, uncomplicated (3) Hypertension Priority: Secondary Status: Chronic Qualifiers: Hypertension type: essential hypertension Qualified Code(s): I10 - Essential (primary) hypertension (4) Suicidal ideation Priority: Secondary Status: Resolved (5) Depression Priority: Secondary Status: Chronic Qualifiers: Depression Type: major depressive disorder Major depression recurrence: single episode Active/Remission status: currently active Major depression episode severity: severe Psychotic features: without psychotic features Qualified Code(s): F32.2 - Major depressive disorder, single episode, severe without psychotic features (6) DVT prophylaxis Priority: Secondary Status: Acute Hospital course: Mr. St is a 43 year old male admitted for alcohol intoxication/withdrawal and suicidal ideation. Patient was admitted to general medical floor with 1-on- 1 sitter. He was started on librium taper and CIWA protocol. He was started on folic acid, thiamine, and multivitamin. Psychiatry was consulted. Home antidepressant medications were continued. Sitter was discontinued after psychiatry declared that he was no suicidal. Psychiatry recommended inpatient rehabilitation for alcohol cessation, and patient was agreeable. He was accepted to [facility] pending bed availability this afternoon. Patient is doing well today without any complaints. He denies any alcohol withdrawal symptoms or suicidality today. He will follow up with inpatient detoxification/ rehabilitation physician. Patient has met maximum benefit of this hospitalization and will be transferred to [facility] for inpatient detoxification/rehabilitation for alcohol dependence in stable condition. Discharge discussed with: patient, nurse, other (Pharmacist) - Time Spent with Patient Total time spent providing and/or coordinating discharge services: Greater than 30 minutes - Discharge Medications Home Medications: Meloxicam 15 mg PO DAILY 03/14/18 [History] Omeprazole [PriLOSEC] 20 mg PO DAILY 03/14/18 [History] hydrOXYzine pamoate [HydrOXYzine Pamoate] 50 mg PO QID PRN 03/14/18 [History] Chlordiazepoxide [Librium] See Taper PO TID 6 Days #14 capsule 03/25/18 [Rx] Escitalopram [Lexapro] 10 mg PO DAILY #30 tablet 03/25/18 [Rx] Lisinopril-HCTZ 20-12.5 [Prinzide 20-12.5] 1 tab PO DAILY 30 Days #30 03/25/18 [ Rx] OXcarbazepine [Trileptal] 150 mg PO BID #60 tablet 03/25/18 [Rx] amLODIPine [Norvasc] 5 mg PO DAILY 30 Days #30 tablet 03/25/18 [Rx] Folic Acid 1 mg PO DAILY tablet 03/30/18 [Rx] Nicotine Patch [Nicoderm] 21 mg TD DAILY patch.td24 03/30/18 [Rx] Thiamine (B-1) [Vitamin B-1] 100 mg PO DAILY tablet 03/30/18 [Rx] Vitamin B Complex/Vit C/Vit E [Stresstab] 1 each PO DAILY tablet 03/30/18 [Rx] Allergies/Adverse Reactions: 3 Allergy/AdvReac Type Severity Reaction Status Date / Time No Known Allergies Allergy Verified 03/18/18 09:32 Date of admission: 03/28/18 12:19 Primary care physician: PCP NONE Consults: Psychiatry Discharging clinician: Taz Mendoza Anticipated date of discharge: 03/30/18 - Constitutional Vitals: Temp Pulse Resp BP Pulse Ox 98.2 F 68 16 95/60 96 03/30/18 10:54 03/30/18 10:54 03/30/18 10:54 03/30/18 10:54 03/30/18 10:54 General appearance: Present: cooperative, A&O X 3, no acute distress, answers questions appropriately - Respiratory Respiratory exam: Present: CTAB. Absent: accessory muscle use, rales, rhonchi, wheezes Additional comments: Normal WOB - Cardiovascular Cardiovascular exam: Present: RRR, +S1, +S2. Absent: diastolic murmur, gallop, rubs, systolic murmur Additional comments: No BLE edema - GI/Abdominal GI/Abdominal exam: Present: normal bowel sounds, soft. Absent: distended, hepatomegaly, mass, splenomegaly, tenderness - Psychiatric Psychiatric exam: Present: normal affect, normal mood. Absent: agitated, anxious, depressed, suicidal ideation - Skin Skin exam: Present: dry, intact, warm. Absent: cyanosis, rash - Patient Status Disposition: Transfer Inpatient Rehab Fac Condition: Good Overall status at discharge: patient is progressing back to baseline - Discharge Instructions Follow Up With: NONE,PCP [Primary Care Provider] - Additional Instructions: Follow up with inpatient alcohol detoxification/rehab physician at [facility]. - Diet and Activity Activity: resume usual activities as tolerated Diet: low fat, low cholesterol, low salt diet, other (Cardiac Diet)
--- NOTE | 2018-03-30 11:25 | Physician Discharge Referral ---
ExtendedCare Referral Info Transfer To: [facility] Alcohol Detoxification/Rehabilitation Provider in Charge after Transfer: Other (Inpatient Detoxification/ Rehabilitation Physician) Institutional Level of Care: Skilled - Diagnosis (1) Alcohol withdrawal Priority: Primary Status: Acute (2) Alcoholic intoxication Priority: Secondary Status: Resolved (3) Hypertension Priority: Secondary Status: Chronic (4) Suicidal ideation Priority: Secondary Status: Resolved (5) Depression Priority: Secondary Status: Chronic (6) DVT prophylaxis Priority: Secondary Status: Acute Prognosis: Good Aware of Diagnosis: Patient Aware of Prognosis: Patient - Transfer Medications Home Medications: Meloxicam 15 mg PO DAILY 03/14/18 [History] Omeprazole [PriLOSEC] 20 mg PO DAILY 03/14/18 [History] hydrOXYzine pamoate [HydrOXYzine Pamoate] 50 mg PO QID PRN 03/14/18 [History] Chlordiazepoxide [Librium] See Taper PO TID 6 Days #14 capsule 03/25/18 [Rx] Escitalopram [Lexapro] 10 mg PO DAILY #30 tablet 03/25/18 [Rx] Lisinopril-HCTZ 20-12.5 [Prinzide 20-12.5] 1 tab PO DAILY 30 Days #30 03/25/18 [ Rx] OXcarbazepine [Trileptal] 150 mg PO BID #60 tablet 03/25/18 [Rx] amLODIPine [Norvasc] 5 mg PO DAILY 30 Days #30 tablet 03/25/18 [Rx] Folic Acid 1 mg PO DAILY tablet 03/30/18 [Rx] Nicotine Patch [Nicoderm] 21 mg TD DAILY patch.td24 03/30/18 [Rx] Thiamine (B-1) [Vitamin B-1] 100 mg PO DAILY tablet 03/30/18 [Rx] Vitamin B Complex/Vit C/Vit E [Stresstab] 1 each PO DAILY tablet 03/30/18 [Rx] Allergies/Adverse Reactions: 3 Allergy/AdvReac Type Severity Reaction Status Date / Time No Known Allergies Allergy Verified 03/18/18 09:32 - Respiratory Orders None Smoking Cessation: Smoking cessation has been advised. For more information, call the [place] Tobacco Quit Line at 9-643-NFGV-NOW. - Advance Directives Code Status: Full Code - Mobility Orders Ambulate - Diet Orders Cardiac CERTIFICATION: I certify that the transfer of the above named patient to an Extended Care Facility is necessary for the continuing treatment of the diagnosis listed. The above information is true and accurate reflection of patient's current condition. Confidential - Redisclosure prohibited without a patient's written consent.
[2018-03-30] MEDS: hydrOXYzine pamoate 25 MG CAPSULE PO PRN (13:58)
== END 2018-03-30 16:49 | DRG 775 ==
LOC: 3NENU 19:11 → EMEROO 19:11 → SUATTDRO 22:29 → 3NENU 22:51 → 2ANU 03-29 09:50
PROVIDERS: ADMIT Internal Medicine; ATTEND Internal Medicine